=== PATIENT | female | born 1940 | race Caucasian/White ===

== ENCOUNTER 2018-06-20 14:33 | Inpatient (IN) | payer MEDICARE ==
[~2018-06-20] VITALS: Ht 157.5 cm; Wt 51.3 kg
[2018-06-20] MEDS ORDERED: ASPIRIN 81 MG CHEW TAB PO ONE ×2 (15:30→17:00)
[2018-06-20 15:45] LABS: BASOPHILS % 0.1 % (0.0-1.0); EOSINOPHILS % 0.1 % (0.0-6.0); HEMATOCRIT 26.4 % (34.2-44.1); HEMOGLOBIN 8.2 g/dL (12.0-16.0); LYMPHOCYTES # (AUTO) 1.6 (1.0-3.2); LYMPHOCYTES % 15.8 % (18.0-39.1); MEAN CORPUSCULAR HEMOGLOBIN 31.1 pg (28-32); MEAN CORPUSCULAR HGB CONC 31.1 g/dL (31-35); MONOCYTES # (AUTO) 0.7 (0.2-0.8); MONOCYTES % 6.3 % (4.4-11.3); NEUTROPHILS % 77.1 % (38.7-80.0); PLATELET COUNT 307 x10e3/uL (140-360); RED BLOOD COUNT 2.64 x10e6/uL (3.6-5.1); RED CELL DISTRIBUTION WIDTH 17.2 % (11.7-14.4)
[2018-06-20 15:50] LABS: INR 1.34; PARTIAL THROMBOPLASTIN TIME 31.4 seconds (23.8-35.5); PROTHROMBIN TIME 15.6 seconds (11.9-14.5)
--- NOTE | 2018-06-20 15:56 | Diagnostic Imaging Report ---
EXAMINATION: CHEST SINGLE (PORTABLE) INDICATION: \S\ERMD ORDER \S\[id number] \S\[id number] \S\Y COMPARISON: None FINDINGS: AP view TUBES and LINES: None. LUNGS: Lungs are well inflated. Bilateral interstitial edema. Bibasilar atelectasis. Few bilateral calcified granulomas. PLEURA: Possible small left pleural effusion. No pneumothorax. HEART AND MEDIASTINUM: Moderate enlargement of the cardiac silhouette. Atherosclerotic calcifications of the aortic arch. BONES AND SOFT TISSUES: No acute osseous lesion. Soft tissues are unremarkable. UPPER ABDOMEN: No free air under the diaphragm. IMPRESSION: Bilateral interstitial edema. Signed by: Dr. Razia Stuart M.D. on 06/20/2018 3:53 PM
[2018-06-20 16:00] LABS: ALBUMIN 1.6 g/dL (3.5-5.0); ALBUMIN/GLOBULIN RATIO 0.3 (0.8-2.0); ANION GAP 15.2 mmol/L (8-16); CALCIUM 8.6 mg/dL (8.4-10.2); CREATININE, SERUM 1.37 mg/dL (0.57-1.11); MAGNESIUM 1.9 MG/DL (1.3-2.1); POTASSIUM 3.2 mmol/L (3.5-5.1)
[2018-06-20 16:06] LABS: CREATINE KINASE MB 1.7 ng/mL (0-5.0)
[2018-06-20] MEDS ORDERED: SODIUM CHLORIDE 0.9% 1000ML 1,000 ML IV SCH (16:54)
[2018-06-20] MEDS ORDERED: FUROSEMIDE INJ 10 MG/ML 2 ML VIAL IV ONE (17:00)
[2018-06-20] MEDS ORDERED: ONDANSETRON HCL INJ 2 MG/ML VIAL IV PRN (17:00)
[2018-06-20] MEDS ORDERED: ALBUTEROL/IPRATROPIUM 3 ML NEB NEB PRN (17:00)
[2018-06-20] MEDS ORDERED: ACETAMINOPHEN 325 MG TAB PO PRN (17:30)
[2018-06-20] MEDS ORDERED: METOPROLOL TARTRATE INJ 1 MG/ML VIAL IV PRN (17:30)
[2018-06-20] MEDS ORDERED: POTASSIUM CHLORIDE 20 MEQ TAB CR PO ONE (18:00)
[2018-06-20] MEDS: FUROSEMIDE INJ 10 MG/ML 2 ML VIAL IV SCH (18:14)
[2018-06-20] MEDS: AZITHROMYCIN 500MG/NS 250 ML 250 ML IV SCH (18:14)
[2018-06-20 18:22] LABS: CLARITY,URINE CLOUDY (CLEAR); COLOR,URINE YELLOW (YELLOW); LEUKOCYTE ESTERASE ,URINE 2+ (NEGATIVE)
[2018-06-20 18:23] LABS: BILIRUBIN,URINE NEGATIVE (NEGATIVE); KETONES,URINE NEGATIVE (NEGATIVE); NITRITE,URINE POSITIVE (NEGATIVE); PROTEIN,URINE DIPSTICK 2+ (NEGATIVE); URINE UROBILINOGEN 0.2 mg/dL (0.2 - 1)
[2018-06-20 18:24] LABS: AMORPHOUS SEDIMENT,URINE MODERATE (FEW); BACTERIA,URINE MANY /HPF; EPITHELIAL CELLS,URINE FEW /LPF; WBC,URINE (MAN) 21-50 /HPF (0-5)
[2018-06-20] MEDS: LEVALBUTEROL HCL SOLN NEBU 0.63 MG/3 ML NEB INH SCH ×2 (19:00→23:00)
[2018-06-20] MEDS: IPRATROPIUM BROMIDE 0.02% 2.5 ML NEB NEB SCH ×2 (19:00→22:20)
[2018-06-20 19:18] VITALS: BP 138/74
[2018-06-20 20:00] VITALS: BP 138/74
[2018-06-20] MEDS: GUAIFENESIN 600 MG TAB PO SCH (22:41)
[2018-06-20] MEDS: CEFTRIAXONE SOD 1 GM VIAL IV SCH (22:41)
[2018-06-21] VITALS: BP 121/57
[2018-06-21 01:09] LABS: CREATINE KINASE MB 1.2 ng/mL (0-5.0)
[2018-06-21] MEDS ORDERED: IBUPROFEN 400 MG TAB PO ONE (01:15)
[2018-06-21] MEDS ORDERED: IBUPROFEN 200 MG TAB PO PRN (01:15)
[2018-06-21] MEDS: LEVALBUTEROL HCL SOLN NEBU 0.63 MG/3 ML NEB INH SCH ×6 (01:45→22:40)
[2018-06-21] MEDS: IPRATROPIUM BROMIDE 0.02% 2.5 ML NEB NEB SCH ×6 (01:45→22:40)
[2018-06-21] MEDS ORDERED: DEXAMETHASONE4 MG PO (02:51)
[2018-06-21] MEDS ORDERED: DULCOLAX SUPP10 MG RC (02:51)
[2018-06-21] MEDS ORDERED: NEXIUM40 MG PO (02:51)
[2018-06-21] MEDS ORDERED: FLEET ENEMA133 ML PR (02:51)
[2018-06-21] MEDS ORDERED: VITAMIN B-12500 MCG PO (02:51)
[2018-06-21] MEDS ORDERED: ULTRAM50 MG PO ×2 (02:51)
[2018-06-21] MEDS ORDERED: ATIVAN1 MG PO (02:51)
[2018-06-21] MEDS ORDERED: LACTULOSE20 GM/30 M PO (02:51)
[2018-06-21] MEDS ORDERED: SENNA LAXATIVE1 EACH PO (02:51)
[2018-06-21] MEDS ORDERED: VITAMIN B-121000 MCG PO (02:51)
[2018-06-21] MEDS ORDERED: RISPERDAL1 MG PO (02:51)
[2018-06-21] MEDS ORDERED: ERGOCALCIF8000 UNIT/ PO (02:51)
[2018-06-21] MEDS ORDERED: IPRAT-ALBUT 0.5-3 ML IH (02:51)
[2018-06-21] MEDS ORDERED: FERROUS SULFAT325 MG PO (02:51)
[2018-06-21] MEDS ORDERED: VITAMIN B12-FO1 EACH (02:51)
[2018-06-21] MEDS ORDERED: POLYETHYLENE GL17 GM PO (02:51)
[2018-06-21] MEDS ORDERED: CALCIUM CARBON500 MG PO (02:51)
[2018-06-21] MEDS ORDERED: CALCIUM 500+D1 EACH (02:51)
[2018-06-21 04:00] VITALS: BP 100/47
[2018-06-21 04:48] LABS: BASOPHILS % 0.1 % (0.0-1.0); HEMATOCRIT 24.9 % (34.2-44.1); HEMOGLOBIN 7.9 g/dL (12.0-16.0); LYMPHOCYTES # (AUTO) 1.6 (1.0-3.2); LYMPHOCYTES % 15.4 % (18.0-39.1); MEAN CORPUSCULAR HEMOGLOBIN 31.2 pg (28-32); MEAN CORPUSCULAR HGB CONC 31.7 g/dL (31-35); MEAN CORPUSCULAR VOLUME 98.4 fL (81-99); MONOCYTES # (AUTO) 0.7 (0.2-0.8); MONOCYTES % 6.4 % (4.4-11.3); NEUTROPHILS # (AUTO) 7.8 (2.1-6.9); NEUTROPHILS % 77.6 % (38.7-80.0); PLATELET COUNT 290 x10e3/uL (140-360); RED BLOOD COUNT 2.53 x10e6/uL (3.6-5.1); RED CELL DISTRIBUTION WIDTH 17.1 % (11.7-14.4)
[2018-06-21 05:06] LABS: ANION GAP 16.9 mmol/L (8-16); CALCIUM 8.4 mg/dL (8.4-10.2); CREATININE, SERUM 1.46 mg/dL (0.57-1.11); MAGNESIUM 1.9 MG/DL (1.3-2.1)
[2018-06-21 05:07] LABS: POTASSIUM 3.9 mmol/L (3.5-5.1)
[2018-06-21 05:51] LABS: CREATINE KINASE MB 1.3 ng/mL (0-5.0)
[2018-06-21] MEDS: GUAIFENESIN 600 MG TAB PO SCH ×4 (06:27→17:45)
--- NOTE | 2018-06-21 06:53 | Diagnostic Imaging Report ---
EXAM: CHEST SINGLE (PORTABLE), AP 1 view INDICATION: Shortness of breath COMPARISON: AP view of the chest June 20, 2018 FINDINGS: LINES/TUBES: None LUNGS: Left lower lobe atelectasis versus consolidation PLEURA: Possible left pleural effusion. HEART AND MEDIASTINUM: Stable appearance BONES AND SOFT TISSUES: No acute findings. IMPRESSION: Left lower lobe atelectasis versus consolidation with suspected adjacent pleural effusion. Signed by: Dr. Lucero Winters M.D. on 06/21/2018 6:50 AM
[2018-06-21 07:20] VITALS: BP 110/53
[2018-06-21 07:47] VITALS: BP 110/53
[2018-06-21] MEDS ORDERED: FUROSEMIDE INJ 10 MG/ML 2 ML VIAL IV PRN (08:00)
[2018-06-21] MEDS ORDERED: SODIUM CHLORIDE 0.9% 250ML 250 ML IV ONE (08:00)
[2018-06-21] MEDS ORDERED: LORAZEPAM 1 MG TAB PO PRN (08:15)
[2018-06-21] MEDS: CEFTRIAXONE SOD 1 GM VIAL IV SCH ×2 (09:00→21:11)
[2018-06-21] MEDS: FUROSEMIDE INJ 10 MG/ML 2 ML VIAL IV SCH ×2 (09:00→17:58)
[2018-06-21] MEDS: POTASSIUM CHLORIDE 20 MEQ TAB CR PO SCH (09:00)
[2018-06-21] MEDS: SENNOSIDES 8.6 MG TAB PO SCH ×2 (10:00→17:45)
[2018-06-21] MEDS: TRAMADOL HCL 50 MG TAB PO SCH ×2 (10:00→21:11)
[2018-06-21] MEDS: ENOXAPARIN 30 MG/0.3 ML SYR SC SCH (10:00)
--- NOTE | 2018-06-21 10:36 | Consultation ---
DATE OF CONSULTATION: June 21, 2018 REASON FOR CONSULTATION: Chest pain. HISTORY OF PRESENT ILLNESS: Ms. Botello is a 78-year-old lady with a past medical history as listed below presented with complaints of intermittent chest pain and abdominal pain since yesterday. Patient states that she has been congested and had been having a cough for the last 5 days or so, and also has been getting short of breath since yesterday. Patient states that she had some kidney cancer and needs her catheter changed. Her chest pain is intermittent, sharp and all across her chest, some times on the right side and some times on the left side, and some times in the epigastric region. She has also been coughing up some yellow phlegm. Denies any vomiting or diarrhea. 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 She is mostly bedbound and stays at [facility]. The patient reportedly was confused, but now is able to talk and give a reasonable history. REVIEW OF SYSTEMS CONSTITUTIONAL: Has some fatigue and weakness. HEENT: No headache, blurry vision, seizures, syncope. CARDIOVASCULAR: Had chest pain. Has dyspnea and orthopnea and PND. RESPIRATORY: Has cough with expectoration. GI: No abdominal pain, vomiting or diarrhea. : No dysuria, frequency or incontinence. ALLERGIES: ACETAMINOPHEN AND PENICILLIN. MEDICATIONS: See list. PAST MEDICAL HISTORY: History of CHF, history of GERD, history of anxiety, history of paraparesis, history of dysphasia, history of L-spine fracture, history of T-spine fracture. SOCIAL HISTORY: Does not smoke or drink. She is a resident of a custodial. FAMILY HISTORY: Noncontributory. PHYSICAL EXAMINATION GENERAL: Moderately built and nourished lady who is awake, alert and not in any obvious distress. VITALS: Heart rate 71, blood pressure 110/53, respiratory rate 18. HEENT: Atraumatic. NECK: No JVD, bruit, thyromegaly, or lymphadenopathy. CARDIOVASCULAR: First and 2nd heart sounds heard. No murmurs, rubs or gallops appreciated. CHEST: Decreased air entry at the bases. No adventitious sounds appreciated. ABDOMEN: Soft and nontender. EXTREMITIES: No edema. LABS: Sodium is 140, potassium is 3.9, chloride is 102, bicarb is 24, BUN is 30, creatinine 1.4, glucose 88. Hemoglobin is 7.9, hematocrit 24.92 and platelets are 291,000. White count is 10. INR is 1.3. EKG shows sinus rhythm at 93 beats per minute. Normal axis. Normal intervals. Nonspecific ST-T changes. Troponin 0.25, 0.43 and 0.58. IMPRESSION 1. Chest pain. 2. Pneumonia. 3. Pulmonary edema/congestive heart failure. 4. Borderline troponins. 5. Anemia. 6. Renal insufficiency. 7. History of paraparesis. 8. History of thoracic and lumbar spine fracture. PLAN 1. IV diuresis. 2. Continue with antibiotics. 3. Get echocardiogram to assess LV function and valvular function. 4. Blood transfusion as indicated. 5. Low-dose beta blockers and statins. 6. The patient is on Lovenox. Continue the same. 7. Further cardiac workup depending on clinical course. As always, I appreciate and thank you very much for the referral. Job#: [id number] YVON
[2018-06-21] MEDS ORDERED: SODIUM CHLORIDE 0.9% 250ML 0 ML ONE (12:52)
[2018-06-21] MEDS ORDERED: SODIUM CHLORIDE 0.9% 250ML 250 ML ONE ×2 (14:02→23:00)
[2018-06-21] MEDS: AZITHROMYCIN 500MG/NS 250 ML 250 ML IV SCH (17:50)
[2018-06-21 17:51] VITALS: BP 114/57
[2018-06-21] MEDS ORDERED: FUROSEMIDE INJ 10 MG/ML 4 ML VIAL IV ONE (18:15)
[2018-06-21 20:00] VITALS: BP 119/56
[2018-06-21] MEDS: RISPERIDONE 0.5 MG TAB PO SCH (21:11)
--- NOTE | 2018-06-21 21:15 | Diagnostic Imaging Report ---
EXAMINATION: Head CT HISTORY: Altered mental status, evaluate for brain metastases COMPARISON: None. TECHNIQUE: Multidetector axial images were obtained without contrast from the foramen magnum to the vertex . The images were reconstructed using brain and bone algorithms. Thin section brain images were reformatted into coronal and sagittal planes. Intravenous contrast: None. Image quality: Motion/streaking artifact limits the evaluation of the skull base and posterior cranial fossa. Dose modulation, iterative reconstruction, and/or weight based adjustment of the mA/kV was utilized to reduce the radiation dose to as low as reasonably achievable. FINDINGS: Parenchyma: 1. Few scattered and mildly confluent periventricular white matter hypodensities, most likely nonspecific chronic microvascular ischemic changes. 2. No mass or hemorrhage. No CT evidence of acute territorial vascular insult. No vasogenic edema, mass defect, midline shift or herniation. Extra-axial spaces:No abnormal density. No extra-axial fluid collections Brain volume: Normal for age. Ventricles: No hydrocephalus or displacement. Arteries: No density suggestive of thrombus. Dural sinuses: No abnormal density. Extra-axial spaces: No abnormal density. Foramen magnum: No mass, Chiari malformation, or basilar invagination. Sella: No obvious mass. Paranasal/mastoid sinuses: Imaged portions unremarkable. Skull/Scalp: No lytic or blastic lesions. No fractures. IMPRESSION: 1. Mild chronic microvascular ischemic changes. 2. No evidence of metastatic disease in this unenhanced study. Signed by: Dr. Mariella Delcid M.D. on 06/21/2018 9:11 PM
[2018-06-22] VITALS (9 sets, daily range): BP systolic 100–120; BP diastolic 51–56
[2018-06-22] MEDS: GUAIFENESIN 600 MG TAB PO SCH ×5 (01:07→23:55)
[2018-06-22] MEDS: LEVALBUTEROL HCL SOLN NEBU 0.63 MG/3 ML NEB INH SCH ×6 (03:20→23:25)
[2018-06-22] MEDS: IPRATROPIUM BROMIDE 0.02% 2.5 ML NEB NEB SCH ×6 (03:20→23:25)
[2018-06-22 03:54] LABS: BASOPHILS # (AUTO) 0.1 (0.0-0.1); BASOPHILS % 0.5 % (0.0-1.0); EOSINOPHILS # (AUTO) 0.1 (0.0-0.4); EOSINOPHILS % 0.6 % (0.0-6.0); HEMATOCRIT 30.1 % (34.2-44.1); HEMOGLOBIN 10.1 g/dL (12.0-16.0); LYMPHOCYTES # (AUTO) 1.6 (1.0-3.2); LYMPHOCYTES % 15.1 % (18.0-39.1); MEAN CORPUSCULAR HEMOGLOBIN 31.4 pg (28-32); MEAN CORPUSCULAR HGB CONC 33.6 g/dL (31-35); MONOCYTES # (AUTO) 0.6 (0.2-0.8); MONOCYTES % 5.3 % (4.4-11.3); NEUTROPHILS # (AUTO) 8.5 (2.1-6.9); NEUTROPHILS % 77.6 % (38.7-80.0); PLATELET COUNT 291 x10e3/uL (140-360); RED BLOOD COUNT 3.22 x10e6/uL (3.6-5.1); RED CELL DISTRIBUTION WIDTH 17.3 % (11.7-14.4)
[2018-06-22 04:00] LABS: MEAN CORPUSCULAR VOLUME 93.5 fL (81-99)
[2018-06-22 04:10] LABS: ANION GAP 16.5 mmol/L (8-16); CALCIUM 8.5 mg/dL (8.4-10.2); CREATININE, SERUM 1.61 mg/dL (0.57-1.11); MAGNESIUM 1.7 MG/DL (1.3-2.1); POTASSIUM 3.5 mmol/L (3.5-5.1)
[2018-06-22 04:31] LABS: FREE T4 (FREE THYROXINE) 1.17 ng/dL (0.9-1.8); THYROID STIMULATING HORMONE 1.893 uIU/mL (0.350-4.940)
[2018-06-22] MEDS: PANTOPRAZOLE SOD 40 MG TABEC PO SCH (08:34)
[2018-06-22 10:26] LABS: COLOR,URINE YELLOW (YELLOW)
[2018-06-22 10:27] LABS: BILIRUBIN,URINE NEGATIVE (NEGATIVE); CLARITY,URINE SL CLOUDY (CLEAR); KETONES,URINE NEGATIVE (NEGATIVE); LEUKOCYTE ESTERASE ,URINE 1+ (NEGATIVE); NITRITE,URINE NEGATIVE (NEGATIVE); PROTEIN,URINE DIPSTICK 2+ (NEGATIVE); URINE UROBILINOGEN 0.2 mg/dL (0.2 - 1)
[2018-06-22 10:46] LABS: BACTERIA,URINE MODERATE /HPF; EPITHELIAL CELLS,URINE FEW /LPF; WBC,URINE (MAN) >50 /HPF (0-5)
[2018-06-22] MEDS: CEFTRIAXONE SOD 1 GM VIAL IV SCH ×2 (10:46→21:50)
[2018-06-22] MEDS: FUROSEMIDE INJ 10 MG/ML 2 ML VIAL IV SCH ×2 (10:46→17:26)
[2018-06-22] MEDS: POTASSIUM CHLORIDE 20 MEQ TAB CR PO SCH (10:47)
[2018-06-22] MEDS: SENNOSIDES 8.6 MG TAB PO SCH ×2 (10:47→16:59)
[2018-06-22] MEDS: TRAMADOL HCL 50 MG TAB PO SCH ×2 (10:47→22:23)
[2018-06-22] MEDS: ENOXAPARIN 30 MG/0.3 ML SYR SC SCH (10:47)
[2018-06-22] MEDS ORDERED: DIATRIZOATE MEGL/DIATRIZOA SOD 30 ML BTL PO ONE (14:15)
[2018-06-22] MEDS ORDERED: SODIUM CHLORIDE 0.9% 1000ML 1,000 ML IV ONE ×2 (14:30→22:00)
[2018-06-22] MEDS: METOPROLOL TARTRATE 25 MG TAB PO SCH (16:58)
[2018-06-22] MEDS: AZITHROMYCIN 500MG/NS 250 ML 250 ML IV SCH (17:32)
[2018-06-22 20:41] LABS: ALBUMIN 1.5 g/dL (3.5-5.0); ALBUMIN/GLOBULIN RATIO 0.2 (0.8-2.0); ANION GAP 16.9 mmol/L (8-16); CALCIUM 8.5 mg/dL (8.4-10.2); CREATININE, SERUM 1.76 mg/dL (0.57-1.11); POTASSIUM 3.9 mmol/L (3.5-5.1)
[2018-06-22] MEDS: RISPERIDONE 0.5 MG TAB PO SCH (21:50)
[2018-06-22] MEDS: ATORVASTATIN 20 MG TAB PO SCH (21:50)
[2018-06-23] VITALS (8 sets, daily range): BP systolic 102–118; BP diastolic 51–77
[2018-06-23] MEDS: LEVALBUTEROL HCL SOLN NEBU 0.63 MG/3 ML NEB INH SCH ×6 (03:35→22:24)
[2018-06-23] MEDS: IPRATROPIUM BROMIDE 0.02% 2.5 ML NEB NEB SCH ×6 (03:35→22:24)
[2018-06-23] MEDS: TRAMADOL HCL 50 MG TAB PO PRN (04:17)
[2018-06-23 05:01] LABS: BASOPHILS % 0.4 % (0.0-1.0); EOSINOPHILS # (AUTO) 0.1 (0.0-0.4); EOSINOPHILS % 1.4 % (0.0-6.0); HEMATOCRIT 30.6 % (34.2-44.1); HEMOGLOBIN 10.1 g/dL (12.0-16.0); LYMPHOCYTES # (AUTO) 1.8 (1.0-3.2); LYMPHOCYTES % 18.9 % (18.0-39.1); MEAN CORPUSCULAR HEMOGLOBIN 31.3 pg (28-32); MEAN CORPUSCULAR VOLUME 94.7 fL (81-99); MONOCYTES # (AUTO) 0.4 (0.2-0.8); MONOCYTES % 4.3 % (4.4-11.3); NEUTROPHILS # (AUTO) 7.2 (2.1-6.9); PLATELET COUNT 301 x10e3/uL (140-360); RED BLOOD COUNT 3.23 x10e6/uL (3.6-5.1); RED CELL DISTRIBUTION WIDTH 17.2 % (11.7-14.4)
[2018-06-23 05:18] LABS: ANION GAP 15.4 mmol/L (8-16); CALCIUM 8.4 mg/dL (8.4-10.2); CREATININE, SERUM 1.66 mg/dL (0.57-1.11); POTASSIUM 3.4 mmol/L (3.5-5.1)
[2018-06-23] MEDS: GUAIFENESIN 600 MG TAB PO SCH ×3 (05:34→17:31)
[2018-06-23 05:40] LABS: IRON 23 ug/dL (50-170); TRANSFERRIN < 70 mg/dL (180-382)
[2018-06-23 05:50] LABS: MAGNESIUM 1.9 MG/DL (1.3-2.1)
[2018-06-23 06:14] LABS: FOLATE 19.1 ng/mL (7.0-15.4)
--- NOTE | 2018-06-23 06:29 | Diagnostic Imaging Report ---
CHEST SINGLE (PORTABLE), 06/23/2018 4:00 AM Technique: CHEST SINGLE (PORTABLE) Comparison: 06/21/2018 Clinical history: Pneumonia/edema Findings: See Impression. Incidental calcified lung granulomas and remote right rib fracture. Impression: 1. Stable cardiomediastinal silhouette. 2. Unchanged left lower lobe consolidation with suspected adjacent pleural effusion. 3. Increased right basilar opacity, which may reflect atelectasis or aspiration/infection. Signed by: Dr Tanisha Gonzales MD on 06/23/2018 6:26 AM
[2018-06-23 07:08] LABS: FERRITIN 285.72 ng/mL (4.63-204.00)
[2018-06-23] MEDS ORDERED: POTASSIUM CHLORIDE 20 MEQ TAB CR PO NR (08:00)
[2018-06-23] MEDS: FUROSEMIDE INJ 10 MG/ML 2 ML VIAL IV SCH ×2 (08:57→16:42)
[2018-06-23] MEDS: ASPIRIN 81 MG ENTERIC COATED PO SCH (08:57)
[2018-06-23] MEDS: CEFTRIAXONE SOD 1 GM VIAL IV SCH ×2 (08:57→21:00)
[2018-06-23] MEDS: PANTOPRAZOLE SOD 40 MG TABEC PO SCH (08:57)
--- NOTE | 2018-06-23 08:57 | Diagnostic Imaging Report ---
PROCEDURE: CT ABDOMEN AND PELVIS WITHOUT CONTRAST TECHNIQUE: The abdomen and pelvis were scanned utilizing a multidetector helical scanner from the diaphragm to the lesser trochanter with oral contrast. No IV contrast was administered per request. Coronal and sagittal multiplanar reformations were obtained. COMPARISON: None. INDICATIONS: RENAL CANCER FINDINGS: ABSENCE OF INTRAVENOUS CONTRAST DECREASES SENSITIVITY FOR DETECTION OF FOCAL LESIONS AND VASCULAR PATHOLOGY. LOWER THORAX: Left lower lobe consolidation with associated volume loss. There is a 5 mm right middle lobe solid pulmonary nodule. Calcified granuloma in the right lower lobe. Coronary atherosclerosis. HEPATOBILIARY: There is a subcentimeter right hepatic lobe lesion on series 2, image 20. No biliary ductal dilatation. Status post cholecystectomy. SPLEEN: No splenomegaly. PANCREAS: No focal masses or ductal dilatation. ADRENALS: There is a right adrenal mass, measuring up to 3.9 cm (16 HU; series 2 image 16). There is a left adrenal mass measuring up to 5.6 cm which contains solid components and fat. KIDNEYS/URETERS: No hydronephrosis or stones. There is a 6.3 x 5.9 x 8.7 cm exophytic mass (14 HU; series 2, image 24) arising from the right mid pole kidney anteriorly. The mass has mass effect and indents the liver anteriorly without definite invasion. PELVIC ORGANS/BLADDER: Hinton catheter is present in the bladder. PERITONEUM / RETROPERITONEUM: No free air or fluid. LYMPH NODES: No lymphadenopathy. VESSELS: Atherosclerotic calcifications of the abdominal aorta and branch vessels. GI TRACT: No wall thickening. Sigmoid diverticulosis without CT evidence of diverticulitis. The rectum is distended with stool measuring up to 7.5 cm. BONES AND SOFT TISSUES: There has been prior vertebral augmentation at T9, T12, L1, and L2. There are compression deformities with loss of greater than 75 percent of vertebral body height at T9 and L1 and loss of approximately 50 percent of vertebral body height at T12 and L2. Additional age indeterminate compression deformities are present at L3 and L4 with loss of less than 50 percent of vertebral body height. No evidence of retropulsion. Diffuse osteopenia. IMPRESSION: Right mid pole renal mass measuring up to 8.7 cm with right adrenal mass. 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 Additional heterogeneous solid left adrenal mass which has components of fat, which may represent adrenal metastasis, although a primary fat containing adrenal neoplasm is also possible. Per clinical history the patient has known right sided renal cancer, correlation with outside imaging would be helpful. Indeterminate subcentimeter right hepatic lobe lesion. Indeterminate 5 mm right middle lobe pulmonary nodule. Correlation with outside imaging or dedicated imaging is suggested. Left lower lobe pulmonary consolidation with volume loss, may reflect atelectasis and/or pneumonia. Multilevel thoracic and lumbar vertebral augmentation with compression deformities as above. Dictated by: GATO OLIVAS M.D. on 06/23/2018 at 9:03 Electronically approved by: GATO OLIVAS M.D. on 06/23/2018 at 9:03
[2018-06-23] MEDS: TRAMADOL HCL 50 MG TAB PO SCH ×2 (08:58→10:47)
[2018-06-23] MEDS: SENNOSIDES 8.6 MG TAB PO SCH ×2 (08:58→16:42)
[2018-06-23] MEDS: METOPROLOL TARTRATE 25 MG TAB PO SCH ×2 (08:58→16:42)
[2018-06-23] MEDS: ENOXAPARIN 30 MG/0.3 ML SYR SC SCH (08:58)
[2018-06-23] MEDS: POTASSIUM CHLORIDE 20 MEQ TAB CR PO SCH (10:47)
[2018-06-23 12:51] LABS: ABG PH 7.44 (7.31-7.41)
[2018-06-23 12:52] LABS: ABG PCO2 41 mmHg (41-51); ABG PO2 52 mmHg (80-105)
[2018-06-23 12:53] LABS: ABG HCO3 28 mmol/L (23-28)
[2018-06-23] MEDS: AZITHROMYCIN 500MG/NS 250 ML 250 ML IV SCH (16:42)
[2018-06-23] MEDS: ATORVASTATIN 20 MG TAB PO SCH (21:00)
[2018-06-23] MEDS: RISPERIDONE 0.5 MG TAB PO SCH (21:00)
[2018-06-24] VITALS (8 sets, daily range): BP systolic 104–123; BP diastolic 52–63
[2018-06-24] MEDS: GUAIFENESIN 600 MG TAB PO SCH ×5 (00:05→23:41)
[2018-06-24 05:32] LABS: BASOPHILS # (AUTO) 0.1 (0.0-0.1); BASOPHILS % 0.8 % (0.0-1.0); EOSINOPHILS # (AUTO) 0.2 (0.0-0.4); EOSINOPHILS % 2.1 % (0.0-6.0); HEMATOCRIT 33.4 % (34.2-44.1); HEMOGLOBIN 10.7 g/dL (12.0-16.0); LYMPHOCYTES % 21.2 % (18.0-39.1); MEAN CORPUSCULAR HEMOGLOBIN 31.1 pg (28-32); MEAN CORPUSCULAR VOLUME 97.1 fL (81-99); MONOCYTES # (AUTO) 0.5 (0.2-0.8); MONOCYTES % 5.6 % (4.4-11.3); NEUTROPHILS # (AUTO) 6.3 (2.1-6.9); NEUTROPHILS % 68.8 % (38.7-80.0); PLATELET COUNT 319 x10e3/uL (140-360); RED BLOOD COUNT 3.44 x10e6/uL (3.6-5.1); RED CELL DISTRIBUTION WIDTH 16.7 % (11.7-14.4)
[2018-06-24 06:00] LABS: ANION GAP 15.5 mmol/L (8-16); CALCIUM 9.1 mg/dL (8.4-10.2); CREATININE, SERUM 1.59 mg/dL (0.57-1.11); MAGNESIUM 1.8 MG/DL (1.3-2.1); POTASSIUM 3.5 mmol/L (3.5-5.1)
[2018-06-24] MEDS: LEVALBUTEROL HCL SOLN NEBU 0.63 MG/3 ML NEB INH SCH ×4 (06:50→23:20)
[2018-06-24] MEDS: IPRATROPIUM BROMIDE 0.02% 2.5 ML NEB NEB SCH ×3 (06:50→23:20)
[2018-06-24] MEDS: FUROSEMIDE INJ 10 MG/ML 2 ML VIAL IV SCH ×2 (09:03→16:49)
[2018-06-24] MEDS: ASPIRIN 81 MG ENTERIC COATED PO SCH (09:03)
[2018-06-24] MEDS: CEFTRIAXONE SOD 1 GM VIAL IV SCH ×2 (09:03→21:14)
[2018-06-24] MEDS: PANTOPRAZOLE SOD 40 MG TABEC PO SCH (09:03)
[2018-06-24] MEDS: TRAMADOL HCL 50 MG TAB PO SCH ×2 (09:04→21:14)
[2018-06-24] MEDS: ENOXAPARIN 30 MG/0.3 ML SYR SC SCH (09:04)
[2018-06-24] MEDS: POTASSIUM CHLORIDE 20 MEQ TAB CR PO SCH (09:04)
[2018-06-24] MEDS: SENNOSIDES 8.6 MG TAB PO SCH ×2 (09:04→16:50)
[2018-06-24] MEDS: METOPROLOL TARTRATE 25 MG TAB PO SCH ×2 (09:04→16:50)
[2018-06-24] MEDS: AZITHROMYCIN 500MG/NS 250 ML 250 ML IV SCH (16:50)
[2018-06-24] MEDS: TRAMADOL HCL 50 MG TAB PO PRN (16:53)
[2018-06-24] MEDS: ATORVASTATIN 20 MG TAB PO SCH (21:14)
[2018-06-24] MEDS: RISPERIDONE 0.5 MG TAB PO SCH (21:14)
[2018-06-25] VITALS: BP 101/51
[2018-06-25] MEDS: LEVALBUTEROL HCL SOLN NEBU 0.63 MG/3 ML NEB INH SCH ×2 (02:05→07:20)
[2018-06-25] MEDS: IPRATROPIUM BROMIDE 0.02% 2.5 ML NEB NEB SCH ×2 (02:05→07:20)
[2018-06-25 04:00] VITALS: BP 132/61
[2018-06-25 05:20] LABS: BASOPHILS # (AUTO) 0.1 (0.0-0.1); BASOPHILS % 0.9 % (0.0-1.0); EOSINOPHILS # (AUTO) 0.2 (0.0-0.4); EOSINOPHILS % 2.1 % (0.0-6.0); HEMATOCRIT 33.1 % (34.2-44.1); HEMOGLOBIN 10.6 g/dL (12.0-16.0); LYMPHOCYTES # (AUTO) 2.4 (1.0-3.2); LYMPHOCYTES % 26.1 % (18.0-39.1); MEAN CORPUSCULAR HEMOGLOBIN 31.2 pg (28-32); MEAN CORPUSCULAR VOLUME 97.4 fL (81-99); MONOCYTES # (AUTO) 0.6 (0.2-0.8); MONOCYTES % 6.9 % (4.4-11.3); NEUTROPHILS # (AUTO) 5.6 (2.1-6.9); NEUTROPHILS % 61.9 % (38.7-80.0); PLATELET COUNT 363 x10e3/uL (140-360); RED CELL DISTRIBUTION WIDTH 16.1 % (11.7-14.4)
[2018-06-25] MEDS: GUAIFENESIN 600 MG TAB PO SCH (05:34)
[2018-06-25 05:41] LABS: ANION GAP 13.5 mmol/L (8-16); CALCIUM 9.3 mg/dL (8.4-10.2); CREATININE, SERUM 1.7 mg/dL (0.57-1.11); MAGNESIUM 1.9 MG/DL (1.3-2.1); POTASSIUM 3.5 mmol/L (3.5-5.1)
--- NOTE | 2018-06-25 06:33 | Diagnostic Imaging Report ---
CHEST SINGLE (PORTABLE), 06/25/2018 4:00 AM Technique: CHEST SINGLE (PORTABLE) Comparison: 06/23/2018 Clinical history: Follow-up pneumonia/effusion Findings: See Impression. Incidental calcified lung granulomas and remote right rib fracture. Impression: 1. Stable cardiomediastinal silhouette. 2. Improved left lower lobe atelectasis/consolidation with suspected adjacent pleural effusion. 3. Stable to decreased right basilar opacity, which may reflect atelectasis or aspiration/infection. Signed by: Dr Tanisha Gonzales MD on 06/25/2018 6:30 AM
[2018-06-25] MEDS ORDERED: ceftin PO (07:34)
[2018-06-25] MEDS ORDERED: MUCINEX600 MG PO (07:34)
[2018-06-25] MEDS ORDERED: LIPITOR20 MG PO (07:34)
[2018-06-25] MEDS ORDERED: METOPROLOL TART25 MG PO (07:40)
[2018-06-25 08:08] VITALS: BP 114/55
[2018-06-25 08:30] LABS: ANISOCYTOSIS SLIGHT; BAND NEUTROPHILS % (MANUAL) 2 %; EOSINOPHILS % (MANUAL) 1 % (0-7); HYPOCHROMASIA SLIGHT; LYMPHOCYTES % (MANUAL) 21 % (19-48); MONOCYTES % (MANUAL) 2 % (3.4-9.0); NEUTROPHILS % (MANUAL) 72 % (40-74); PLATELET ESTIMATE ADEQUATE; PLATELET MORPHOLOGY COMMENT NORMAL; PROMYELOCYTES % (MANUAL) 1 % (0-0); RBC MORPHOLOGY COMMENT NORMAL
[2018-06-25] MEDS: FUROSEMIDE INJ 10 MG/ML 2 ML VIAL IV SCH (08:49)
[2018-06-25] MEDS: POTASSIUM CHLORIDE 20 MEQ TAB CR PO SCH (08:49)
[2018-06-25] MEDS: PANTOPRAZOLE SOD 40 MG TABEC PO SCH (08:49)
[2018-06-25] MEDS: CEFTRIAXONE SOD 1 GM VIAL IV SCH (08:49)
[2018-06-25] MEDS: ASPIRIN 81 MG ENTERIC COATED PO SCH (08:49)
[2018-06-25] MEDS: METOPROLOL TARTRATE 25 MG TAB PO SCH (08:50)
[2018-06-25] MEDS: ENOXAPARIN 30 MG/0.3 ML SYR SC SCH (08:50)
[2018-06-25] MEDS: TRAMADOL HCL 50 MG TAB PO SCH (08:50)
[2018-06-25] MEDS: SENNOSIDES 8.6 MG TAB PO SCH (08:50)
[2018-06-25 09:03] VITALS: BP 114/55
--- NOTE | 2018-06-25 17:10 | Discharge Summary ---
ADMISSION DIAGNOSES 1. Bronchopneumonia. 2. Pulmonary edema. 3. Anxiety. 4. Acute kidney injury versus chronic kidney disease. 5. Hypokalemia. 6. Anemia. 7. Elevated troponin. 8. Gastroesophageal reflux disease. 9. Heart failure. 10. Debility. 11. Dysphagia. 12. Urinary tract infection. DISCHARGE DIAGNOSES 1. Bronchopneumonia. 2. Pulmonary edema. 3. Anxiety. 4. Acute kidney injury versus chronic kidney disease. 5. Hypokalemia. 6. Anemia. 7. Elevated troponin. 8. Gastroesophageal reflux disease. 9. Heart failure. 10. Debility. 11. Dysphagia. 12. Urinary tract infection. 13. Renal cancer. HISTORY: Patient has a history of anxiety, heart failure, GERD, T-spine fracture, L-spine fracture, dysphagia, physical debility, multiple myeloma, renal cancer. HOSPITAL COURSE: A 78-year-old female complains of cough and congestion that began a couple days ago. Cough is productive with yellow-green sputum. Complains of congestion for 4 days that led to dyspnea yesterday. She is a resident of [facility] and unable to give HPI due to confusion. HPI was pulled from the ER records. On admission patient was started on azithromycin, Rocephin, Mucinex, Lasix b.i.d. Creatinine on admission was 1.37. Patient was given IV fluids in the ER. Potassium was repleted. She was also given 2 PRBCs due to a hemoglobin of 7.9. Troponins were 0.258, 0.433, 0.586. Cardiology was consulted and an echo was ordered. Patient was started on Rocephin for the UTI. Speech therapy eval conducted which showed patient can tolerate regular foods and thin liquids. Chest x-ray on admission showed bilateral interstitial edema. CT of the brain showed mild chronic microvascular ischemic changes, no evidence of metastatic disease. CT of the abdomen showed right midpole renal mass measuring up to 8.7 cm with right adrenal mass, solid left adrenal mass which has components of fat which may represent adrenal metastases, although a primary fat-containing adrenal neoplasm was also possible, indeterminate subcentimeter right hepatic lobe lesion, indeterminate 5 mm right middle lobe pulmonary nodule, left lower lobe pulmonary consolidation with volume loss, multiple thoracic and lumbar vertebral augmentation with compression deformities. Chest x-ray prior to discharge showed improved left lower lobe atelectasis/consolidation, stable to decreased right basilar opacity. Patient received 2 RBCs on June 21. Urine came back positive for enterococcus and gram-negative bacillus. Blood cultures were negative. [facility]. Fecal occult blood was not tested as the nurses continued to miss collection, but her hemoglobin remained stable after getting the blood. [facility] the [facility] with Lipitor, Mucinex, metoprolol 12.5 daily, and Ceftin b.i.d. for 4 days. Patient understands discharge instructions and agrees to plan. Patient's family is also aware of the plan and agrees. Vital signs stable, patient afebrile. Dictated by: Gabriela Santos NP TACOS CEJA MD Job#: [id number] EV
--- OUTSIDE RECORDS SUMMARY | 2018-07-23 05:31 | XMS REPORT | Summary of Care ---
Author Author [facility] Organization [facility] Address Unknown Phone Unavailable Encounter KENA Calles(FIN) [phone] Date(s): 09/25/17 - 09/25/17 [facility] [address] [place] [address] Attending Physician: Lino Erickson MD Vital Signs No data available for this section Problem List Condition Effective Dates Status Health Status Informant Obesity(Confirmed) Active Allergies, Adverse Reactions, Alerts Substance Reaction Severity Status penicillins Active Tylenol Active Medications No data available for this section Results No data available for this section Immunizations Given and Recorded Vaccine Date Status Refusal Reason pneumococcal 23-valent vaccine 05/20/16 Recorded influenza virus vaccine, inactivated 05/20/16 Recorded Procedures Procedure Date Related Diagnosis Body Site Cataract surgery Cholecystectomy Operation on colon Procedure on adenoids Removal of remaining ovary Tonsillectomy Uterus excision Social History Social History Type Response Smoking Status Current every day smoker; Type: Cigarettes; Exposure to Tobacco Smoke None; Cigarette Smoking Last 365 Days Yes; Reg Smoking Cessation Counseling No; Total pack years: 51; Assessment and Plan No data available for this section
--- OUTSIDE RECORDS SUMMARY | 2018-07-23 05:31 | XMS REPORT | Summary of Care ---
Author Author [facility] Organization [facility] Address Unknown Phone Unavailable Encounter KENA Calles(FIN) [phone] Date(s): 09/09/17 - 09/09/17 [facility] [address] [place] [address] Attending Physician: Lino Erickson MD Vital Signs [...]
--- OUTSIDE RECORDS SUMMARY | 2018-07-23 05:31 | XMS REPORT | Clinical Summary ---
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 Disp. Refills Start End Date Status Date furosemide (LASIX) 20 mg Take 20 mg by mouth Active tablet daily. potassium chloride Take 20 mEq by mouth Active (KLOR-CON) 20 mEq packet daily. estradiol (ESTRACE) 1 MG Take 1 mg by mouth daily. Active tablet omeprazole (PriLOSEC) 40 Take 40 mg by mouth Active MG capsule daily. gemfibrozil (LOPID) 600 Take 600 mg by mouth 2 Active MG tablet (two) times a day before meals. losartan (COZAAR) 50 MG Take 50 mg by mouth as Active tablet needed. traMADol (ULTRAM) 50 mg Take 50 mg by mouth every Active tablet 8 (eight) hours as needed for moderate pain. fentaNYL (DURAGESIC) 12.5 Place 1 patch on the skin Active mcg/hr every third day. ferrous sulfate 325 (65 Take 325 mg by mouth Active FE) MG tablet daily with breakfast. calcium carbonate-vitamin Take 1 tablet by mouth Active D3 500 mg-200 unit per daily. 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, unspecified back location (Primary Dx); Viral upper respiratory tract infection after 06/19/2017 Social History Tobacco Use Types Packs/Day Years Used Date Current Every Day Smoker Cigarettes 1 Smokeless Tobacco: Never Used Alcohol Use Drinks/Week oz/Week Comments No Sex Assigned at Date Recorded Not on file Last Filed Vital Signs Vital Sign Reading Time Taken Blood Pressure 158/70 04/25/2018 7:35 PM CDT Pulse 65 04/25/2018 7:35 PM CDT Temperature 37.2 C (99 F) 04/25/2018 1:23 PM CDT Respiratory Rate 24 04/25/2018 7:35 PM CDT Oxygen Saturation 96% 04/25/2018 7:35 PM CDT Inhaled Oxygen - - Concentration Weight - - Height 154.9 cm (5' 1") 04/25/2018 1:25 PM CDT Body Mass Index - - Plan of Treatment Health Maintenance Due Date Last Done Comments SHINGRIX VACCINE (#1) 1989 ZOSTER VACCINE 1999 PNEUMOCOCCAL 2004 POLYSACCHARIDE VACCINE AGE 65 AND OVER PNEUMOCOCCAL-13 2004 INFLUENZA VACCINE 05/20/2018 Procedures Procedure Name Priority Date/Time Associated Diagnosis Comments ZZESTIMATED GFR STAT 04/25/2018 Results for this 5:42 PM CDT procedure are in the results section. LACTIC ACID LEVEL Routine 04/25/2018 Results for this 5:42 PM CDT procedure are in the results section. B NATRIURETIC PEPTIDE STAT 04/25/2018 Results for this 5:42 PM CDT procedure are in the results section. TROPONIN STAT 04/25/2018 Results for this 5:42 PM CDT procedure are in the results section. COMPREHENSIVE METABOLIC STAT 04/25/2018 Results for this PANEL 5:42 PM CDT procedure are in the results section. HC COMPLETE BLD COUNT STAT 04/25/2018 Results for this W/AUTO DIFF 5:42 PM CDT procedure are in the results section. INFLUENZA ANTIGEN Routine 04/25/2018 Results for this 5:42 PM CDT procedure are in the results section. RESPIRATORY PATHOGEN STAT 04/25/2018 Results for this PANEL 5:40 PM CDT procedure are in the results section. BLOOD CULTURE, AEROBIC & Routine 04/25/2018 Results for this ANAEROBIC 4:43 PM CDT procedure are in the results section. BLOOD CULTURE, AEROBIC & Routine 04/25/2018 Results for this ANAEROBIC 4:33 PM CDT procedure are in the results section. NM LUNG VENTILATION STAT 04/25/2018 Results for this PERFUSION 4:31 PM CDT procedure are in the results section. ECG 12-LEAD STAT 04/25/2018 Results for this 4:23 PM CDT procedure are in the results section. CT CHEST WO CONTRAST STAT 04/25/2018 Results for this 3:19 PM CDT procedure are in the results section. after 06/19/2017 Results * Estimated GFR (04/25/2018 5:42 PM) GFR Non Af Amer 31 (A) mL/min/1.73 m2 [facility] DEPARTMENT OF PATHOLOGY AND GENOMIC MEDICINE GFR Af Amer 38 (A) mL/min/1.73 m2 [facility] DEPARTMENT OF Comment: PATHOLOGY AND Chronic kidney disease: <60 GENOMIC MEDICINE mL/min/1.73m2 Kidney failure: <15 mL/min/1.73m2 The estimated GFR is calculated from the IDMS-traceable Modification of Diet in Renal Disease Equation. The accuracy of the calculation is poor when the creatinine is normal. Calculated values >90 mL/min/1.73m2 are not reported. This equation has not been validated in children (<18 years), women, the elderly (>70 years), or ethnic groups other than Caucasians and Americans. Specimen Plasma specimen Performing Organization Address [facility] Phone Number [address] [place] [address] PATHOLOGY AND [facility] * Troponin (04/25/2018 5:42 PM) Troponin <0.30 0.00 - 0.30 ng/mL [facility] DEPARTMENT OF Comment: PATHOLOGY AND 0.11 - 1.49 GENOMIC MEDICINE ng/ml May indicate increased risk of acute coronary syndrome. >=1.5 ng/ml Consistent with acute myocardial infarction. The diagnostic value of a single normal or non-diagnostic result is questionable. Serial samples at 2-6 hour intervals are required to rule out acute myocardial injury. Specimen Plasma specimen Performing Organization Address City/[facility] Phone Number [facility] [address] [place] [address]. [place] [address] PATHOLOGY AND [facility]ICINE * CBC with platelet and differential (04/25/2018 5:42 PM) WBC 7.3 4.2 - 11.0 k/uL [facility] DEPARTMENT OF PATHOLOGY AND GENOMIC MEDICINE RBC 3.34 (L) 4.04 - 5.86 m/uL [facility] DEPARTMENT OF PATHOLOGY AND GENOMIC MEDICINE HGB 10.6 (L) 11.5 - 15.3 g/dL [facility] DEPARTMENT OF PATHOLOGY AND GENOMIC MEDICINE HCT 34.1 34.0 - 45.0 % [facility] DEPARTMENT OF PATHOLOGY AND GENOMIC MEDICINE MCV 102.1 (H) 80.0 - 98.0 fL [facility] DEPARTMENT OF PATHOLOGY AND GENOMIC MEDICINE MCH 31.7 27.0 - 34.0 pg [facility] DEPARTMENT OF PATHOLOGY AND GENOMIC MEDICINE MCHC 31.1 (L) 31.5 - 36.5 g/dL [facility] DEPARTMENT OF PATHOLOGY AND GENOMIC MEDICINE RDW - SD 59.0 (H) 37.0 - 51.0 fL [facility] DEPARTMENT OF PATHOLOGY AND GENOMIC MEDICINE MPV 9.5 7.4 - 10.4 fL [facility] DEPARTMENT OF PATHOLOGY AND GENOMIC MEDICINE Platelet count 315 150 - 400 k/uL [facility] DEPARTMENT OF PATHOLOGY AND GENOMIC MEDICINE Nucleated RBC 0.00 /100 WBC [facility] DEPARTMENT OF PATHOLOGY AND GENOMIC MEDICINE Neutrophils 67.8 (H) 36.0 - 66.0 % [facility] DEPARTMENT PATHOLOGY AND GENOMIC MEDICINE Lymphocytes 23.1 (L) 24.0 - 44.0 % [facility] DEPARTMENT OF PATHOLOGY AND GENOMIC MEDICINE Monocytes 5.9 0.0 - 6.0 % [facility] DEPARTMENT OF PATHOLOGY AND GENOMIC MEDICINE Eosinophils 1.9 0.0 - 6.0 % [facility] DEPARTMENT PATHOLOGY AND GENOMIC MEDICINE Basophils 0.7 0.0 - 1.2 % [facility] DEPARTMENT PATHOLOGY AND GENOMIC MEDICINE Immature granulocytes 0.6 0.0 - 1.0 % [facility] DEPARTMENT OF PATHOLOGY AND GENOMIC MEDICINE Specimen Blood Performing Organization Address City/[facility]/[place] [address] PATHOLOGY AND GENOMIC MEDICINE * Influenza antigen (04/25/2018 5:42 PM) Influenza antigen Negative for Influenza A/B [facility] DEPARTMENT OF antigen. PATHOLOGY AND Comment: GENOMIC MEDICINE Specimen Information Specimen Source: Nares Specimen Site: Right Specimen Nares - Right Performing Organization Address City/State/Zipcode Phone Number [address] [place] [address] PATHOLOGY AND GENOMIC MEDICINE * B natriuretic peptide (04/25/2018 5:42 PM) BNP 630 (H) 0 - 100 pg/mL [facility] PATHOLOGY AND GENOMIC MEDICINE Specimen Blood Performing Organization Address City/[facility]/Zipcode Phone Number [address] [place] [address] PATHOLOGY AND GENOMIC MEDICINE * Lactic acid level (04/25/2018 5:42 PM) Lactic acid 1.3 0.5 - 2.2 mmol/L [facility] DEPARTMENT OF PATHOLOGY AND GENOMIC MEDICINE Specimen Blood Performing Organization Address City/[facility]/Zipcode Phone Number [place] [phone] [place] [address] PATHOLOGY AND GENOMIC MEDICINE * Comprehensive metabolic panel (04/25/2018 5:42 PM) Sodium 135 135 - 150 mEq/L [facility] DEPARTMENT OF PATHOLOGY AND GENOMIC MEDICINE Potassium 4.2 3.5 - 5.0 mEq/L [facility] DEPARTMENT OF PATHOLOGY AND GENOMIC MEDICINE Chloride 97 (L) 98 - 112 mEq/L [facility] DEPARTMENT OF PATHOLOGY AND GENOMIC MEDICINE CO2 27 24 - 31 mmol/L [facility] DEPARTMENT OF PATHOLOGY AND GENOMIC MEDICINE Anion gap 11@ANIO 7 - 15 mEq/L [facility] DEPARTMENT OF PATHOLOGY AND GENOMIC MEDICINE BUN 19 (H) 7 - 18 mg/dL [facility] DEPARTMENT OF PATHOLOGY AND GENOMIC MEDICINE Creatinine 1.60 (H) 0.50 - 0.90 mg/dL [facility] DEPARTMENT OF PATHOLOGY AND GENOMIC MEDICINE Glucose 85 65 - 100 mg/dL [facility] DEPARTMENT OF PATHOLOGY AND GENOMIC MEDICINE Calcium 8.8 8.8 - 10.2 mg/dL [facility] DEPARTMENT OF PATHOLOGY AND GENOMIC MEDICINE Protein 8.8 (H) 6.3 - 8.3 g/dL [facility] DEPARTMENT OF PATHOLOGY AND GENOMIC MEDICINE Albumin 2.1 (L) 3.5 - 5.0 g/dL [facility] DEPARTMENT OF PATHOLOGY AND GENOMIC MEDICINE A/G ratio 0.3 (L) 0.7 - 3.8 [facility] DEPARTMENT OF PATHOLOGY AND GENOMIC MEDICINE Alkaline phosphatase 125 (H) 0 - 104 U/L [facility] DEPARTMENT OF PATHOLOGY AND GENOMIC MEDICINE AST 35 10 - 35 U/L [facility] DEPARTMENT OF PATHOLOGY AND GENOMIC MEDICINE ALT 13 5 - 50 U/L [facility] DEPARTMENT OF PATHOLOGY AND GENOMIC MEDICINE Total bilirubin 0.4 0.2 - 1.2 mg/dL [facility] DEPARTMENT OF PATHOLOGY AND GENOMIC MEDICINE Specimen Plasma specimen Performing Organization Address City/State/Zipcode Phone Number [place] [phone] [place] [address] PATHOLOGY AND GENOMIC MEDICINE * Respiratory pathogen panel (04/25/2018 5:40 PM) Respiratory pathogen Negative for all pathogens [facility] DEPARTMENT OF panel tested: PATHOLOGY AND Negative for Adenovirus GENOMIC MEDICINE Negative for Coronavirus HKU1 Negative for Coronavirus NL63 Negative for Coronavirus 229E Negative for Coronavirus OC43 Negative for Human Metapneumovirus Negative for Rhinovirus/Enterovirus Negative for Influenza A Negative for Influenza A/H1 Negative for Influenza A/H3 Negative for Influenza A/H1-2009 Negative for Influenza B Negative for Parainfluenza Virus 1 Negative for Parainfluenza Virus 2 Negative for Parainfluenza Virus 3 Negative for Parainfluenza Virus 4 Negative for Respiratory Syncytial Virus Negative for Bordetella pertussis Negative for Chlamydophila pneumoniae Negative for Mycoplasma pneumoniae This real-time PCR assay detects the presence of nucleic acids (RNA or DNA) for the respiratory pathogens listed. A result of "Not-detected" does not exclude the possibility of the presence of one or more pathogens at concentrations less than the detectable limits of the assay. Comment: Specimen Information Specimen Source: Nasopharyngeal Specimen Site: swab Specimen Nasopharyngeal Performing Organization Address City/[facility] Phone Number [facility] DEPARTMENT OF [address] [place] [phone] PATHOLOGY AND GENOMIC MEDICINE * Blood culture, aerobic & anaerobic (04/25/2018 4:43 PM) Only the most recent of 2 results within the time period is included. Blood culture isolate No growth after 5 days of [facility] DEPARTMENT OF incubation. PATHOLOGY AND Comment: GENOMIC MEDICINE Specimen Information Specimen Source: Blood Specimen Site: LEFT WRIST Specimen Blood Performing Organization Address City/[facility] Phone Number [facility] [address] PATHOLOGY AND GENOMIC MEDICINE * NM Lung Ventilation Perfusion (04/25/2018 4:31 PM) Narrative Performed At CLINICAL HISTORY: hypoxia RADIANT TECHNIQUE: The patient breathed 15-20 mCi of xenon-133 gas through a closed ventilation system while dynamic imaging of the lungs was performed in the posterior and anterior projections. The patient was then injected with 5 mCi of [id number] intravenously, followed by imaging of the lungs in anterior, posterior, and oblique projections. FINDINGS: Marked air trapping left lung. Mildly reduced perfusion left lung, secondary to the air trapping. Heterogeneous perfusion and ventilation in the right lung. IMPRESSION: Low Probability for pulmonary embolism. [facility]-ANN Procedure Note Hm Interface, Radiology Results Incoming - 04/25/2018 4:56 PM CDT CLINICAL HISTORY: hypoxia TECHNIQUE: The patient breathed 15-20 mCi of xenon-133 gas through a closed ventilation system while dynamic imaging of the lungs was performed in the posterior and anterior projections. The patient was then injected with 5 mCi of technetium-99m -MAA intravenously, followed by imaging of the lungs in anterior, posterior, and oblique projections. FINDINGS: Marked air trapping left lung. Mildly reduced perfusion left lung, secondary to the air trapping. Heterogeneous perfusion and ventilation in the right lung. IMPRESSION: Low Probability for pulmonary embolism. [facility]-PC Performing Organization Address [facility] Phone Number [facility] [address] [place] [address] * ECG 12 lead (04/25/2018 4:23 PM) Ventricular rate 61 [facility] Atrial rate 61 [facility] DC interval 188 [facility] QRSD interval 68 [facility] QT interval 438 [facility] QTC interval 440 [facility] P axis 1 65 [facility] QRS axis 1 72 [facility] T wave axis 55 [facility] EKG impression Normal sinus rhythm-Septal [facility] MUSE infarct , age undetermined-Abnormal ECG-No previous ECGs available- Performing Organization Address [facility] Phone Number [facility] [address] [place] [address] * CT Chest Wo Contrast (04/25/2018 3:19 PM) Narrative Performed At EXAMINATION: [employer] CT CHEST WO CONTRAST CLINICAL HISTORY: thoracic back pain hx of compression fx hypoxia poor gfr. TECHNIQUE: Multiple axial images of the chest were obtained without intravenous contrast. The lack of intravenous contrast reduces the sensitivity of detecting solid organ disease and evaluating vasculature. Sagittal and coronal computerized reformatted images were also obtained. All CT images were acquired using low-dose technique with automated exposure control. COMPARISON: None. FINDINGS: 1. The heart size is normal. There are atherosclerotic calcifications involving the thoracic aorta and coronary vessels. No mediastinal lymphadenopathy. There are calcified lymph nodes relating to sequela of prior granulomatous infection. 2. Lungs are mildly hyperinflated with emphysematous changes present bilaterally. There is volume loss in the base of the lingula. 3. Layering heterogeneous material in the distal trachea and proximal right mainstem bronchus likely relates to mucous and secretions. 4. There are several calcified granulomas scattered throughout the lungs. A noncalcified nodule measuring 3 to 4 mm in the right middle lobe on image 73 of series 4 and may be postinflammatory in etiology. However, if the patient has appropriate risk factors follow-up in 12 month interval time may be of benefit. 5. Osseous structures are demineralized. There is a compression fracture involving the L1 vertebral body and the T9 vertebral body. There is loss of vertebral height at the T12 level. There are healed left-sided rib fractures. 6. Limited images through the upper abdomen demonstrates a 4.5 x 4.4 cm heterogeneous fat-containing mass in the left retroperitoneum superior to the left kidney. Differential considerations include an angiomyolipoma or an adrenal myolipoma. Correlation with MRI findings may be of further benefit when clinically capable. IMPRESSION: 1. Hyperinflation with emphysematous changes present bilaterally. 2. 3 to 4 mm right middle lobe pulmonary nodule. The findings are most likely postinflammatory in etiology. However, and the clinical setting of appropriate risk factors, follow-up in 12 month interval time may be of benefit if there is clinical concern. 3. Heterogeneous material layering dependently in the distal trachea and right mainstem bronchus likely relates to secretions and mucous. 4. Left retroperitoneal mass measuring approximately 4.5 x 4.4 cm superior to the left kidney. Left adrenal gland is not definitively visualized. Findings may relate to a left renal angiomyolipoma or less likely left adrenal myelolipoma. Correlation with MRI findings may be of further benefit for characterization. [facility]-[id number] Procedure Note [facility], Radiology Results - 04/25/2018 3:32 PM CDT EXAMINATION: CT CHEST WO CONTRAST CLINICAL HISTORY: thoracic back pain hx of compression fx hypoxia poor gfr. TECHNIQUE: Multiple axial images of the chest were obtained without intravenous contrast. The lack of intravenous contrast reduces the sensitivity of detecting solid organ disease and evaluating vasculature. Sagittal and coronal computerized reformatted images were also obtained. All CT images were acquired using low-dose technique with automated exposure control. COMPARISON: None. FINDINGS: 1. The heart size is normal. There are atherosclerotic calcifications involving the thoracic aorta and coronary vessels. No mediastinal lymphadenopathy. There are calcified lymph nodes relating to sequela of prior granulomatous infection. 2. Lungs are mildly hyperinflated with emphysematous changes present bilaterally. There is volume loss in the base of the lingula. 3. Layering heterogeneous material in the distal trachea and proximal right mainstem bronchus likely relates to mucous and secretions. 4. There are several calcified granulomas scattered throughout the lungs. A noncalcified nodule measuring 3 to 4 mm in the right middle lobe on image 73 of series 4 and may be postinflammatory in etiology. However, if the patient has appropriate risk factors follow-up in 12 month interval time may be of benefit. 5. Osseous structures are demineralized. There is a compression fracture involving the L1 vertebral body and the T9 vertebral body. There is loss of vertebral height at the T12 level. There are healed left-sided rib fractures. 6. Limited images through the upper abdomen demonstrates a 4.5 x 4.4 cm heterogeneous fat-containing mass in the left retroperitoneum superior to the left kidney. Differential considerations include an angiomyolipoma or an adrenal myolipoma. Correlation with MRI findings may be of further benefit when clinically capable. IMPRESSION: 1. Hyperinflation with emphysematous changes present bilaterally. 2. 3 to 4 mm right middle lobe pulmonary nodule. The findings are most likely postinflammatory in etiology. However, and the clinical setting of appropriate risk factors, follow-up in 12 month interval time may be of benefit if there is clinical concern. 3. Heterogeneous material layering dependently in the distal trachea and right mainstem bronchus likely relates to secretions and mucous. 4. Left retroperitoneal mass measuring approximately 4.5 x 4.4 cm superior to the left kidney. Left adrenal gland is not definitively visualized. Findings may relate to a left renal angiomyolipoma or less likely left adrenal myelolipoma. Correlation with MRI findings may be of further benefit for characterization. [facility]-[id number] Performing Organization Address City/State/Zipcode Phone Number [facility] [address] [place] [address] after 06/19/2017 Insurance Payer Benefit Subscriber ID Type Phone Address Plan / Group HUMANA MEDICARE HUMANA xxxxxxxxx PPO MEDICARE PPO/PFFS/E [facility]
--- OUTSIDE RECORDS SUMMARY | 2018-07-23 05:31 | XMS REPORT | Summary of Care ---
Author Author [facility] Organization [facility] Address Unknown Phone Unavailable Encounter HQ Cherie_cynthia(FIN) [id number] Date(s): 09/06/17 - 09/07/17 [facility] [address] [place], [place] [address] [phone] Vital Signs No data available for this [...]
--- OUTSIDE RECORDS SUMMARY | 2018-07-23 05:32 | XMS REPORT | Summary of Care ---
Author Author [facility] Organization [facility] Address Unknown Phone Unavailable Encounter KENA Calles(GISSEL) [id number] Date(s): 10/17/17 - 10/18/17 [facility] [address] [place] [address]- [phone] Vital Signs No data available for this section Problem List Condition Effective Dates Status Health Status Informant Obesity(Confirmed) Active Allergies, Adverse Reactions, Alerts Substance Reaction Severity Status penicillins Active Tylenol Active Medications Estrace 1 mg oral tablet 1 mg=1 tab, PO, Daily, # 90 tab, 1 Refill(s), Pharmacy: [facility] [id number] Start Date: 10/17/17 Status: Ordered gemfibrozil 600 mg oral tablet 600 mg=1 tab, PO, BID, # 180 tab, 1 Refill(s), Pharmacy: [facility] [id number] Start Date: 10/17/17 Status: Ordered hydrochlorothiazide-triamterene 25 mg-37.5 mg oral tablet 1 tab, PO, Daily, # 90 tab, 1 Refill(s), Pharmacy: [facility] [id number] Start Date: 10/17/17 Stop Date: 04/15/18 Status: Ordered omeprazole 40 mg oral delayed release capsule 40 mg=1 cap, PO, Daily, # 90 cap, 1 Refill(s), Pharmacy: [facility] [id number] Start Date: 10/17/17 Status: Ordered potassium chloride 20 mEq oral tablet, extended release 20 mEq=1 tab, PO, BID, # 180 tab, 1 Refill(s), Pharmacy: [facility] [id number] Start Date: 10/17/17 Stop Date: 04/15/18 Status: Ordered Results No data available for this section [...]
--- OUTSIDE RECORDS SUMMARY | 2018-07-23 05:32 | XMS REPORT | Summary of Care ---
Author Author [facility] [place] Organization [facility] [place] Address Unknown Phone Unavailable Encounter HQ Cherie_cynthia(FIN) [id number] Date(s): 12/31/17 - 12/31/17 [facility] [place] [address] [place], [place] [address] [phone] Encounter Diagnosis Encounter for screening mammogram for malignant neoplasm of breast (Final) - Discharge Disposition: Home or Self Care Attending Physician: Lino Erickson MD Vital Signs No data available for this section Problem List Condition Effective Dates Status Health Status Informant Hypertension(Confirm Active ed) Lumbar Active radiculopathy(Confir med) Obesity(Confirmed) Active Allergies, Adverse Reactions, Alerts Substance Reaction Severity Status penicillins Active Tylenol Active Medications No data available for this section Results No data available for this section Immunizations Given and Recorded Vaccine Date Status Refusal Reason pneumococcal 23-valent vaccine 05/20/16 Recorded influenza virus vaccine, inactivated 05/20/16 Recorded Procedures Procedure Date Related Diagnosis Body Site Status Cataract surgery Completed Cholecystectomy Completed Operation on colon Completed Procedure on adenoids Completed Removal of remaining ovary Completed Tonsillectomy Completed Uterus excision Completed Social History Social History Type Response Smoking Status Current every day smoker; Type: Cigarettes; Exposure to Tobacco Smoke None; Cigarette Smoking Last 365 Days Yes; Reg Smoking Cessation Counseling No; Total pack years: 51; entered on: 03/31/18 Assessment and Plan No data available for this section
--- OUTSIDE RECORDS SUMMARY | 2018-07-23 05:32 | XMS REPORT | Summary of Care ---
Author Author [facility] Organization [facility] Address Unknown Phone Unavailable Encounter HQ Cherie_cynthia(FIN) [phone] Date(s): 11/03/17 - 11/04/17 [facility] [address] [place] [address]- [phone] Vital Signs No data available for this [...] No; Total pack years: 51; entered on: 07/09/17 Assessment and Plan No data available for this section
--- OUTSIDE RECORDS SUMMARY | 2018-07-23 05:32 | XMS REPORT | Summary of Care ---
Author Author [facility] Organization [facility] Address Unknown Phone Unavailable Encounter KENA Calles(FIN) [phone] Date(s): 02/23/18 - 02/23/18 [facility] [address] [place] [address]- [phone] Attending Physician: Lino Erickson MD Vital Signs [...]
--- OUTSIDE RECORDS SUMMARY | 2018-07-23 05:32 | XMS REPORT | Summary of Care ---
Author Author [facility] Organization [facility] Address Unknown Phone Unavailable Encounter KENA Calles(FIN) [id number] Date(s): 11/05/17 - 11/05/17 [facility] [address] [place] [address]- [phone] Attending Physician: Lino Erickson MD Vital Signs [...]
--- OUTSIDE RECORDS SUMMARY | 2018-07-23 05:32 | XMS REPORT | Summary of Care ---
Author Author [facility] Organization [facility] Address Unknown Phone Unavailable Encounter KENA Calles(FIN) [id number] Date(s): 10/22/17 - 10/22/17 [facility] [address] [place] [address]- [phone] Attending Physician: Lino Erickson MD Vital Signs [...]
--- OUTSIDE RECORDS SUMMARY | 2018-07-23 05:32 | XMS REPORT | Summary of Care ---
Author Author [facility] Organization [facility] Address Unknown Phone Unavailable Encounter KENA Calles(FIN) [id number] Date(s): 12/18/17 - 12/19/17 [facility] [address] [place] [address]- [phone] Vital Signs No data available for this [...]
--- OUTSIDE RECORDS SUMMARY | 2018-07-23 05:32 | XMS REPORT | Clinical Summary ---
Author Author [facility] Organization [facility] Address Unknown Phone Unavailable Care Team Providers Care Acid Remover Name Role Phone PCP Unavailable Allergies Active Allergy Reactions Severity Noted Date Comments Acetaminophen Palpitations Low 04/25/2018 Reaction noted decades ago Penicillin G Hives Low 04/25/2018 Current Medications Prescription Sig. Disp. Refills Start End Date Status Date ergocalciferol (VITAMIN Take 1 capsule by mouth 4 capsule 0 05/21/20 Active D2) 50,000 unit weekly. 18 capsuleIndications: IgA myeloma Omeprazole 40 mg Take 1 capsule by mouth 30 capsule 0 05/20/20 Active capsuleIndications: IgA daily. 18 myeloma polyethylene glycol 3350 Mix 17 grams into 4 to 8 30 Each 0 05/21/20 05/23/20 Active (GLYCOLAX) 17 gram oral ounces of water, juice, 18 18 powder packetIndications: soda, tea or coffee and IgA myeloma drink as directed. traMADol (ULTRAM) 50 mg Take 1 tablet by mouth 90 tablet 0 05/20/20 Active tabletIndications: IgA every 8 hours as needed 18 myeloma for Pain. dexamethasone (DECADRON) Take 5 tablets by mouth 10 tablet 0 05/21/20 05/23/20 Active 4 mg tabletIndications: daily (with breakfast) 18 18 IgA myeloma for 2 days. dexamethasone (DECADRON) Take 5 tablets by mouth 40 tablet 0 05/25/20 Active 4 mg tabletIndications: weekly. 18 IgA myeloma potassium chloride (KDUR) Take 10 mEq by mouth 05/20/20 Suspended 10 mEq extended release daily. 18 tablet Omeprazole 40 mg capsule Take 40 mg by mouth 05/20/20 Suspended daily. 18 losartan (COZAAR) 50 mg Take 50 mg by mouth 05/20/20 Suspended tablet daily. 18 furosemide (LASIX) 20 mg Take 20 mg by mouth 05/20/20 Suspended tablet daily. 18 HYDROcodone-acetaminophen Take 1 tablet by mouth 05/20/20 Suspended (NORCO) 5-325 mg tablet every 6 hours as needed 18 for Pain. traMADol (ULTRAM) 50 mg Take 50 mg by mouth every 05/20/20 Suspended tablet 8 hours as needed for 18 Pain. Active Problems Problem Noted Date Adrenal mass, left 05/20/2018 IgA myeloma 05/18/2018 Compression fracture of body of thoracic vertebra 05/18/2018 Intentional opiate overdose Cluster B personality disorder Aspiration pneumonia Urinary retention Physical deconditioning Right Renal mass Resolved Problems Problem Noted Date Resolved Date Delirium 04/29/2018 05/18/2018 Severe episode of recurrent major depressive disorder, without psychotic 06/201805/18/2018 features Suicidal ideations 04/27/2018 05/18/2018 Chronic pain syndrome 04/27/2018 05/18/2018 Intentional drug overdose 04/26/2018 05/18/2018 CHF (congestive heart failure) 04/26/2018 05/18/2018 Altered mental status 05/18/2018 Suicidal behavior with attempted self-injury 05/18/2018 Multiple myeloma in remission 05/20/2018 Encounters Date Type Specialty Care Team Description 05/07/2018 Telephone Glynn Natanael 05/01/2018 Procedure Pass 05/01/2018 Procedure Pass 04/26/2018 [facility] Patricia Parker MD Compression fracture of Encounter Lea Palm MD body of thoracic vertebra Leighton Jones MD (Primary Dx); Ruiz Kelley MD Intentional drug overdose, initial encounter; Congestive heart failure, unspecified HF chronicity, unspecified heart failure type; Intentional opiate overdose, initial encounter; Altered mental status, unspecified altered mental status type; Suicidal behavior with attempted self-injury; Chronic systolic congestive heart failure; Oropharyngeal dysphagia; Hypoxia after 05/19/2017 Family History Medical History Relation Name Comments Parkinsonism Father Relation Name Status Comments Daughter Alive Father (Age 84) Mother (Age 91) Social History Tobacco Use Types Packs/Day Years Used Date Current Every Day Smoker Cigarettes 1 53 Smokeless Tobacco: Never Used Tobacco Cessation: Ready to Quit: No Alcohol Use Drinks/Week oz/Week Comments No Sex Assigned at Date Recorded Not on file Last Filed Vital Signs Vital Sign Reading Time Taken Blood Pressure 119/72 05/20/2018 12:00 PM CDT Pulse 66 05/20/2018 12:00 PM CDT Temperature 36.8 C (98.3 F) 05/20/2018 12:00 PM CDT Respiratory Rate 16 05/20/2018 12:00 PM CDT Oxygen Saturation 93% 05/19/2018 7:49 PM CDT Inhaled Oxygen - - Concentration Weight 51.4 kg (113 lb 6 oz) 04/28/2018 9:00 PM CDT Height 154.9 cm (5' 1") 04/28/2018 9:00 PM CDT Body Mass Index 21.42 04/28/2018 9:00 PM CDT Plan of Treatment Date Type Specialty Care Team Description 06/05/2018 Office Visit [facility] Jemima Maravilla NP [phone] Health Maintenance Due Date Last Done Comments IMM Pneumococcal Age 65 2004 and Up IMM Influenza Seasonal 07/20/2018Jul to December (>/=19 yrs) Results * URIC ACID (05/19/2018 5:35 AM) Component Value Ref Range Uric acid 4.5 2.3 - 6.6 mg/dL Specimen Performing Laboratory Blood MISYS * BASIC METABOLIC PANEL (05/19/2018 5:35 AM) Only the most recent of 23 results within the time period is included. Component Value Ref Range CO2 30 21 - 31 mmol/L Chloride 105 98 - 107 mmol/L Potassium 3.8 3.5 - 5.1 mmol/L Sodium 143 136 - 145 mmol/L Glucose 74 70 - 110 mg/dL Urea Nitrogen 24 7 - 25 mg/dL Creatinine 1.40 (H) 0.6 - 1.2 mg/dL Anion Gap 8 Calcium 8.9 8.6 - 10.3 mg/dL GFR, Estimated 36 mL/min/1.73 m2 GFR, Estim, Afr-Am 44 mL/min/1.73 m2 Specimen Performing Laboratory Blood MISYS * CBC (05/15/2018 5:20 AM) Only the most recent of 2 results within the time period is included. Component Value Ref Range WBC 5.9 4.5 - 11.0 K/uL RBC 2.79 (L) 4.20 - 5.40 M/uL Hemoglobin 8.6 (L) 12.0 - 16.0 g/dL Hematocrit 27.7 (L) 37.0 - 47.0 % MCV 99 (H) 82 - 92 fL MCH 30.8 27.0 - 32.0 pg MCHC 31.0 (L) 32.0 - 36.0 g/dL RDW 53.1 (H) 36.4 - 46.3 fL Platelet 307 150 - 400 K/uL Mean Platelet Volume 9.4 9.4 - 12.4 fL Percent NRBC 0.0 Absolute NRBC 0.00 Specimen Performing Laboratory Blood MISYS * XRAY CHEST 1 VIEW (05/14/2018 8:41 PM) Only the most recent of 6 results within the time period is included. Specimen Performing Laboratory SMS Impressions IMPRESSION: 1.Persistent small left pneumothorax. 2.Stable left basilar and lingular opacities likely atelectasis with superimposed small left effusion. Dictated By: Jose Llamas DO, 05/15/2018 6:03 AM I have reviewed the study and agree with the findings in this report. Signed By: Theo eLwis MD, 05/15/2018 8:41 AM Narrative EXAM: XR CHEST 1 VIEW DATE: 05/14/2018 8:42 PM INDICATION: ptx after adrenal bx COMPARISON: Chest x-ray 05/14/2018. FINDINGS: Devices, Lines, and Tubes: None. Heart and Mediastinum: The cardiomediastinal silhouette is unremarkable. Mild atherosclerotic calcification of the thoracic aorta. Lungs and Pleura: Small left pneumothorax. Interval improvement in left basilar and lingular airspace opacity. Small left pleural effusion. Bones and Soft Tissues: Chronic right rib fracture deformities. Compression fractures and kyphoplasty better seen on recent CT chest. Procedure Note Interface, Rad/Mammog In - 05/15/2018 8:46 AM CDT EXAM: XR CHEST 1 VIEW DATE: 05/14/2018 8:42 PM INDICATION: ptx after adrenal bx COMPARISON: Chest x-ray 05/14/2018. FINDINGS: Devices, Lines, and Tubes: None. Heart and Mediastinum: The cardiomediastinal silhouette is unremarkable. Mild atherosclerotic calcification of the thoracic aorta. Lungs and Pleura: Small left pneumothorax. Interval improvement in left basilar and lingular airspace opacity. Small left pleural effusion. Bones and Soft Tissues: Chronic right rib fracture deformities. Compression fractures and kyphoplasty better seen on recent CT chest. IMPRESSION IMPRESSION: 1. Persistent small left pneumothorax. 2. Stable left basilar and lingular opacities likely atelectasis with superimposed small left effusion. Dictated By: Jose Llamas DO, 05/15/2018 6:03 AM I have reviewed the study and agree with the findings in this report. Signed By: Theo Lewis MD, 05/15/2018 8:41 AM * CT GUIDANCE CYST ASPER DRAIN (05/14/2018 4:53 PM) Specimen Performing Laboratory SMS Impressions IMPRESSION: CT-guided biopsy of left adrenal mass with asymptomatic small left pneumothorax. Plan: CXR now for baseline, then repeat in one hour and again in four hours. Dictated By: Darion Foster MD, 05/14/2018 4:58 PM I have reviewed the study and agree with the findings in this report. Signed By: Jamaica Schuster MD, 05/19/2018 7:35 AM Narrative Procedure: CT-guided biopsy of left adrenal mass Date and Time: 05/14/2018 4:53 PM bending machine operator: Dr. Darion Foster MD Assistants: Dr. Trevor RAVI Staff: Jamaica Schuster MD Preoperative diagnosis: left adrenal mass Post operative diagnosis: left adrenal mass Conscious Sedation: Fentanyl 50 mcg and Versed 1 mg. Patient was continuously monitored by the dedicated IR nurse. Dose Length Product: 323 mGy*cm Contrast used: NONE Estimated blood loss: less than 5 mL Specimens: 6 core biopsy samples, 2 FNA biopsy samples Implants/Grafts: None Blood Products Administered: None Complications: Small left pneumothorax Condition: Stable Disposition: PACU CPT procedure code: 31104, 05101, 42826 S&I code: [id number] DISCUSSION: The prior CT and MRI were evaluated which demonstrated a large left adrenal mass and a right renal mass. A limited CT scan was performed in the region of abnormality, which redemonstrated the finding as previously described. A safe approach was determined for specimen acquisition. The patient was placed in the left lateral decubitus position. The left back was prepped and draped in the usual sterile fashion. 1% lidocaine was infiltrated into the subcutaneous tissues for local anesthesia. Under computed tomographic guidance, a 16 gauge coaxial introducer needle was passed into the mass. A total of 2 passes were made through the mass with 22-gauge needles. The samples were given to the pathologist for evaluation and adequacy confirmed. A total of 6 core biopsies were then obtained through the needle guide using a 18-gauge, 15 cm long, 20 mm throw core biopsy gun. All specimens were given to pathology for further evaluation. The patient developed an asymptomatic small left pneumothorax. The decision was made to treat conservatively with observation. Jamaica Schuster MD was present throughout the procedure. Condition: Stable Disposition: PACU Procedure Note Interface, Rad/Mammog In - 05/19/2018 7:40 AM CDT Procedure: CT-guided biopsy of left adrenal mass Date and Time: 05/14/2018 4:53 PM bending machine operator: Dr. Darion Foster MD Assistants: Dr. Trevor RAVI Staff: Jamaica Schuster MD Preoperative diagnosis: left adrenal mass Post operative diagnosis: left adrenal mass Conscious Sedation: Fentanyl 50 mcg and Versed 1 mg. Patient was continuously monitored by the dedicated IR nurse. Dose Length Product: 323 mGy*cm Contrast used: NONE Estimated blood loss: less than 5 mL Specimens: 6 core biopsy samples, 2 FNA biopsy samples Implants/Grafts: None Blood Products Administered: None Complications: Small left pneumothorax Condition: Stable Disposition: PACU CPT procedure code: 02264, 68433, 43837 S&I code: [id number] DISCUSSION: The prior CT and MRI were evaluated which demonstrated a large left adrenal mass and a right renal mass. A limited CT scan was performed in the region of abnormality, which redemonstrated the finding as previously described. A safe approach was determined for specimen acquisition. The patient was placed in the left lateral decubitus position. The left back was prepped and draped in the usual sterile fashion. 1% lidocaine was infiltrated into the subcutaneous tissues for local anesthesia. Under computed tomographic guidance, a 16 gauge coaxial introducer needle was passed into the mass. A total of 2 passes were made through the mass with 22-gauge needles. The samples were given to the pathologist for evaluation and adequacy confirmed. A total of 6 core biopsies were then obtained through the needle guide using a 18-gauge, 15 cm long, 20 mm throw core biopsy gun. All specimens were given to pathology for further evaluation. The patient developed an asymptomatic small left pneumothorax. The decision was made to treat conservatively with observation. Jamaica Schuster MD was present throughout the procedure. Condition: Stable Disposition: PACU IMPRESSION IMPRESSION: CT-guided biopsy of left adrenal mass with asymptomatic small left pneumothorax. Plan: CXR now for baseline, then repeat in one hour and again in four hours. Dictated By: Darion Foster MD, 05/14/2018 4:58 PM I have reviewed the study and agree with the findings in this report. Signed By: Jamaica Schuster MD, 05/19/2018 7:35 AM * PERCUT BIOPSY, ABDOMINAL MASS (05/14/2018 4:53 PM) Specimen Performing Laboratory SMS Impressions IMPRESSION: CT-guided biopsy of left adrenal mass with asymptomatic small left pneumothorax. Plan: CXR now for baseline, then repeat in one hour and again in four hours. Dictated By: Darion Foster MD, 05/14/2018 4:58 PM I have reviewed the study and agree with the findings in this report. Signed By: Jamaica Schuster MD, 05/19/2018 7:35 AM Narrative Procedure: CT-guided biopsy of left adrenal mass Date and Time: 05/14/2018 4:53 PM bending machine operator: Dr. Darion Foster MD Assistants: Dr. Trevor RAVI Staff: Jamaica Schuster MD Preoperative diagnosis: left adrenal mass Post operative diagnosis: left adrenal mass Conscious Sedation: Fentanyl 50 mcg and Versed 1 mg. Patient was continuously monitored by the dedicated IR nurse. Dose Length Product: 323 mGy*cm Contrast used: NONE Estimated blood loss: less than 5 mL Specimens: 6 core biopsy samples, 2 FNA biopsy samples Implants/Grafts: None Blood Products Administered: None Complications: Small left pneumothorax Condition: Stable Disposition: PACU CPT procedure code: 97650, 32909, 05436 S&I code: [id number] DISCUSSION: The prior CT and MRI were evaluated which demonstrated a large left adrenal mass and a right renal mass. A limited CT scan was performed in the region of abnormality, which redemonstrated the finding as previously described. A safe approach was determined for specimen acquisition. The patient was placed in the left lateral decubitus position. The left back was prepped and draped in the usual sterile fashion. 1% lidocaine was infiltrated into the subcutaneous tissues for local anesthesia. Under computed tomographic guidance, a 16 gauge coaxial introducer needle was passed into the mass. A total of 2 passes were made through the mass with 22-gauge needles. The samples were given to the pathologist for evaluation and adequacy confirmed. A total of 6 core biopsies were then obtained through the needle guide using a 18-gauge, 15 cm long, 20 mm throw core biopsy gun. All specimens were given to pathology for further evaluation. The patient developed an asymptomatic small left pneumothorax. The decision was made to treat conservatively with observation. Jamaica Schuster MD was present throughout the procedure. Condition: Stable Disposition: PACU Procedure Note Interface, Rad/Mammog In - 05/19/2018 7:40 AM CDT Procedure: CT-guided biopsy of left adrenal mass Date and Time: 05/14/2018 4:53 PM bending machine operator: Dr. Darion Foster MD Assistants: Dr. Trevor RAVI Staff: Jamaica Schuster MD Preoperative diagnosis: left adrenal mass Post operative diagnosis: left adrenal mass Conscious Sedation: Fentanyl 50 mcg and Versed 1 mg. Patient was continuously monitored by the dedicated IR nurse. Dose Length Product: 323 mGy*cm Contrast used: NONE Estimated blood loss: less than 5 mL Specimens: 6 core biopsy samples, 2 FNA biopsy samples Implants/Grafts: None Blood Products Administered: None Complications: Small left pneumothorax Condition: Stable Disposition: PACU CPT procedure code: 68176, 28803, 86044 S&I code: [id number] DISCUSSION: The prior CT and MRI were evaluated which demonstrated a large left adrenal mass and a right renal mass. A limited CT scan was performed in the region of abnormality, which redemonstrated the finding as previously described. A safe approach was determined for specimen acquisition. The patient was placed in the left lateral decubitus position. The left back was prepped and draped in the usual sterile fashion. 1% lidocaine was infiltrated into the subcutaneous tissues for local anesthesia. Under computed tomographic guidance, a 16 gauge coaxial introducer needle was passed into the mass. A total of 2 passes were made through the mass with 22-gauge needles. The samples were given to the pathologist for evaluation and adequacy confirmed. A total of 6 core biopsies were then obtained through the needle guide using a 18-gauge, 15 cm long, 20 mm throw core biopsy gun. All specimens were given to pathology for further evaluation. The patient developed an asymptomatic small left pneumothorax. The decision was made to treat conservatively with observation. Jamaica Schuster MD was present throughout the procedure. Condition: Stable Disposition: PACU IMPRESSION IMPRESSION: CT-guided biopsy of left adrenal mass with asymptomatic small left pneumothorax. Plan: CXR now for baseline, then repeat in one hour and again in four hours. Dictated By: Darion Foster MD, 05/14/2018 4:58 PM I have reviewed the study and agree with the findings in this report. Signed By: Jamaica Schuster MD, 05/19/2018 7:35 AM * FNA W/IMAGE (05/14/2018 4:53 PM) Specimen Performing Laboratory SMS Impressions IMPRESSION: CT-guided biopsy of left adrenal mass with asymptomatic small left pneumothorax. Plan: CXR now for baseline, then repeat in one hour and again in four hours. Dictated By: Darion Foster MD, 05/14/2018 4:58 PM I have reviewed the study and agree with the findings in this report. Signed By: Jamaica Schuster MD, 05/19/2018 7:35 AM Narrative Procedure: CT-guided biopsy of left adrenal mass Date and Time: 05/14/2018 4:53 PM bending machine operator: Dr. Darion Foster MD Assistants: Dr. Trevor RAVI Staff: Jamaica Schuster MD Preoperative diagnosis: left adrenal mass Post operative diagnosis: left adrenal mass Conscious Sedation: Fentanyl 50 mcg and Versed 1 mg. Patient was continuously monitored by the dedicated IR nurse. Dose Length Product: 323 mGy*cm Contrast used: NONE Estimated blood loss: less than 5 mL Specimens: 6 core biopsy samples, 2 FNA biopsy samples Implants/Grafts: None Blood Products Administered: None Complications: Small left pneumothorax Condition: Stable Disposition: PACU CPT procedure code: 71921, 78477, 77778 S&I code: [id number] DISCUSSION: The prior CT and MRI were evaluated which demonstrated a large left adrenal mass and a right renal mass. A limited CT scan was performed in the region of abnormality, which redemonstrated the finding as previously described. A safe approach was determined for specimen acquisition. The patient was placed in the left lateral decubitus position. The left back was prepped and draped in the usual sterile fashion. 1% lidocaine was infiltrated into the subcutaneous tissues for local anesthesia. Under computed tomographic guidance, a 16 gauge coaxial introducer needle was passed into the mass. A total of 2 passes were made through the mass with 22-gauge needles. The samples were given to the pathologist for evaluation and adequacy confirmed. A total of 6 core biopsies were then obtained through the needle guide using a 18-gauge, 15 cm long, 20 mm throw core biopsy gun. All specimens were given to pathology for further evaluation. The patient developed an asymptomatic small left pneumothorax. The decision was made to treat conservatively with observation. Jamaica Schuster MD was present throughout the procedure. Condition: Stable Disposition: PACU Procedure Note Interface, Rad/Mammog In - 05/19/2018 7:40 AM CDT Procedure: CT-guided biopsy of left adrenal mass Date and Time: 05/14/2018 4:53 PM bending machine operator: Dr. Darion Foster MD Assistants: Dr. Trevor RAVI Staff: Jamaica Schuster MD Preoperative diagnosis: left adrenal mass Post operative diagnosis: left adrenal mass Conscious Sedation: Fentanyl 50 mcg and Versed 1 mg. Patient was continuously monitored by the dedicated IR nurse. Dose Length Product: 323 mGy*cm Contrast used: NONE Estimated blood loss: less than 5 mL Specimens: 6 core biopsy samples, 2 FNA biopsy samples Implants/Grafts: None Blood Products Administered: None Complications: Small left pneumothorax Condition: Stable Disposition: PACU CPT procedure code: 63663, 32477, 14584 S&I code: [id number] DISCUSSION: The prior CT and MRI were evaluated which demonstrated a large left adrenal mass and a right renal mass. A limited CT scan was performed in the region of abnormality, which redemonstrated the finding as previously described. A safe approach was determined for specimen acquisition. The patient was placed in the left lateral decubitus position. The left back was prepped and draped in the usual sterile fashion. 1% lidocaine was infiltrated into the subcutaneous tissues for local anesthesia. Under computed tomographic guidance, a 16 gauge coaxial introducer needle was passed into the mass. A total of 2 passes were made through the mass with 22-gauge needles. The samples were given to the pathologist for evaluation and adequacy confirmed. A total of 6 core biopsies were then obtained through the needle guide using a 18-gauge, 15 cm long, 20 mm throw core biopsy gun. All specimens were given to pathology for further evaluation. The patient developed an asymptomatic small left pneumothorax. The decision was made to treat conservatively with observation. Jamaica Schuster MD was present throughout the procedure. Condition: Stable Disposition: PACU IMPRESSION IMPRESSION: CT-guided biopsy of left adrenal mass with asymptomatic small left pneumothorax. Plan: CXR now for baseline, then repeat in one hour and again in four hours. Dictated By: Darion Foster MD, 05/14/2018 4:58 PM I have reviewed the study and agree with the findings in this report. Signed By: Jamaica Schuster MD, 05/19/2018 7:35 AM * [facility] (05/14/2018 3:50 PM) Only the most recent of 3 results within the time period is included. Component Value Ref Range [facility] Surgical Pathology (note) Name AYAN, RAJNI Date of 1940 Hospital Number [id number] Location [address] Medical Surgical SURGICAL PATHOLOGY Collected: 05/14/2018 15:50 Received: 05/14/2018 16:34 PATHOLOGIC DIAGNOSIS LEFT ADRENAL GLAND,, IMAGE GUIDED BIOPSY: - ADRENAL CORTICAL TISSUE IN A BACKGROUND OF DENSE FIBROUS STROMA Comment The core needle biopsies show small focus of adrenal cortical tissue in a background of dense fibrous stroma. The cells are bland and have small nuclei, abundant foamy to eosinophilic cytoplasm. No nuclear atypia, mitosis, necrosis is identified. No overt features of malignancy is present. The findings are most compatible with benign adrenal cortical parenchyma; although a low grade neoplastic process such as an adenoma cannot be ruled out. Clinical correlation is suggested. The concurrent FNA specimen ([id number]) shows atypical plasm cells; however these cells are not present in this biopsy. Pertinent Clinical Information Right renal mass and left adrenal mass Gross Description Specimen Material: Left adrenal biopsy The case is received in one part labeled with the patient's name "RAJNI MCMAHON", medical record number and given accession number [id number], and it is accompanied by a requisition form labeled with the same name and accession number. Received in formalin labeled "LEFT ADRENAL BIOPSY" is a 0.5 x 0.5 x 0.2 cm aggregate of multiple red-eid cores of tissue which are submitted entirely in cassettes A1-A2. JOSE SLATER MD Pathology Resident Microscopic Description Performed. Vane ZarcoBBreanneSBreanne/[id number] Pathology Resident Electronically Signed Out Ruthie Clifton M.D./[id number] Staff Pathologist Specimen Performing Laboratory MISYS * CT CHEST W CONTRAST (05/14/2018 10:16 AM) Specimen Performing Laboratory SMS Impressions IMPRESSION: 1.Right middle lobe 5 mm pulmonary nodule, nonspecific. Given evidence of prior granulomatous disease, noncalcified granuloma possible; however, metastatic lesion not excluded. Follow-up per oncology protocol. 2.Large solid and cystic lesion right kidney partially visualized consistent with presumed renal cell carcinoma on recent MRI. Solid and cystic left adrenal mass suggesting metastatic disease or primary malignancy similar to recent abdominal MRI. 3.Thyroid hypodensities which could be better evaluated with ultrasound. 4.Small left effusion with bibasilar atelectasis. Dictated By: Riley Kimball MD, 05/14/2018 2:08 PM I have reviewed the study and agree with the findings in this report. Signed By: Theo Lewis MD, 05/14/2018 2:15 PM Narrative EXAM: CT Chest WITH contrast INDICATION: Staging COMPARISON: Abdominal MRI on 05/04/2018. Thoracic spine MRI on 05/02/2018. TECHNIQUE: Chest was scanned utilizing a multidetector helical scanner from the lung apex through the level of the adrenal glands after administration of IV contrast. Coronal and sagittal reformations were obtained. Routine protocol was performed. IV CONTRAST: 100 ml Omnipaque 300 RADIATION DOSE: Total DLP: 282 mGy*cm Estimated effective dose: (DLP x 0.014 x size factor) mSv COMPLICATIONS: None FINDINGS: LINES/ TUBES: None. LUNGS AND AIRWAYS: Elevation left hemidiaphragm. Right upper and lower lobes calcified granulomas. Left lower lobe calcified granuloma. Right apical 0.8 cm subpleural bleb. Thickened left oblique fissure. Left basilar segmental atelectasis. A right middle lobe 5 mm pulmonary nodule on (series 2 image 92). Airways are normal. PLEURA: Bilateral trace pleural effusions, worse on the left. No pneumothorax. HEART AND MEDIASTINUM:Asymmetric enlarged left thyroid lobe with multiple bilateral hypodensities. No mediastinal, hilar or axillary lymphadenopathy.The heart is normal in size. There is no pericardial effusion. Moderate atherosclerotic disease of the coronary arteries and thoracic aorta. Left subclavian artery originates from the proximal brachiocephalic trunk. Several subcentimeter mediastinal and hilar lymph nodes some of then are calcified. For example: *A 0.4 cm prevascular lymph node (series 2 image 37). *A 0.4 cm prevascular lymph node (series 2 image 38). *Two left paratracheal lymph nodes, one measuring 0.8 cm and the other 0.5 cm (series 2 image 54). *A 0.5 cm subcarinal calcified lymph node (series 2 image 58). *A 0.6 cm right hilar calcified lymph node (series 2 image 63). UPPER ABDOMEN: A 0.5 cm too small to characterize hypodense lesion in hepatic segment 8 (series 2 image 134) Cholecystectomy. Enlarged irregular heterogeneous left adrenal gland measuring 5 x 6.3 x 5.1 cm (series 2 image 114). Partially visualized right right renal exophytic heterogeneous complex and with solid components measuring 7.6 x 5.9 cm (series 2 image 143), with associated regional mass effect on the right hepatic lobe border, which was better visualized on previous abdominal MRI on 05/04/2018. Unchanged multiple additional cysts throughout both kidneys, these lesions are compatible with simple cysts on previous abdominal MRI. BONES: No acute osseous lesions. Kyphoplasty inthe previously described biopsy-proven multiple pathologic compression fractures with associated height loss at T5, T6, T9, T12, L1 and L2. Findings are better evaluated in previous thoracic spine MRI on 05/02/2018. Healed right rib fractures. SOFT TISSUES: Unremarkable. Procedure Note Interface, Rad/Mammog In - 05/14/2018 2:22 PM CDT EXAM: CT Chest WITH contrast INDICATION: Staging COMPARISON: Abdominal MRI on 05/04/2018. Thoracic spine MRI on 05/02/2018. TECHNIQUE: Chest was scanned utilizing a multidetector helical scanner from the lung apex through the level of the adrenal glands after administration of IV contrast. Coronal and sagittal reformations were obtained. Routine protocol was performed. IV CONTRAST: 100 ml Omnipaque 300 RADIATION DOSE: Total DLP: 282 mGy*cm Estimated effective dose: (DLP x 0.014 x size factor) mSv COMPLICATIONS: None FINDINGS: LINES/ TUBES: None. LUNGS AND AIRWAYS: Elevation left hemidiaphragm. Right upper and lower lobes calcified granulomas. Left lower lobe calcified granuloma. Right apical 0.8 cm subpleural bleb. Thickened left oblique fissure. Left basilar segmental atelectasis. A right middle lobe 5 mm pulmonary nodule on (series 2 image 92). Airways are normal. PLEURA: Bilateral trace pleural effusions, worse on the left. No pneumothorax. HEART AND MEDIASTINUM: Asymmetric enlarged left thyroid lobe with multiple bilateral hypodensities. No mediastinal, hilar or axillary lymphadenopathy. The heart is normal in size. There is no pericardial effusion. Moderate atherosclerotic disease of the coronary arteries and thoracic aorta. Left subclavian artery originates from the proximal brachiocephalic trunk. Several subcentimeter mediastinal and hilar lymph nodes some of then are calcified. For example: * A 0.4 cm prevascular lymph node (series 2 image 37). * A 0.4 cm prevascular lymph node (series 2 image 38). * Two left paratracheal lymph nodes, one measuring 0.8 cm and the other 0.5 cm (series 2 image 54). * A 0.5 cm subcarinal calcified lymph node (series 2 image 58). * A 0.6 cm right hilar calcified lymph node (series 2 image 63). UPPER ABDOMEN: A 0.5 cm too small to characterize hypodense lesion in hepatic segment 8 (series 2 image 134) Cholecystectomy. Enlarged irregular heterogeneous left adrenal gland measuring 5 x 6.3 x 5.1 cm (series 2 image 114). Partially visualized right right renal exophytic heterogeneous complex and with solid components measuring 7.6 x 5.9 cm (series 2 image 143), with associated regional mass effect on the right hepatic lobe border, which was better visualized on previous abdominal MRI on 05/04/2018. Unchanged multiple additional cysts throughout both kidneys, these lesions are compatible with simple cysts on previous abdominal MRI. BONES: No acute osseous lesions. Kyphoplasty in the previously described biopsy-proven multiple pathologic compression fractures with associated height loss at T5, T6, T9, T12, L1 and L2. Findings are better evaluated in previous thoracic spine MRI on 05/02/2018. Healed right rib fractures. SOFT TISSUES: Unremarkable. IMPRESSION IMPRESSION: 1. Right middle lobe 5 mm pulmonary nodule, nonspecific. Given evidence of prior granulomatous disease, noncalcified granuloma possible; however, metastatic lesion not excluded. Follow-up per oncology protocol. 2. Large solid and cystic lesion right kidney partially visualized consistent with presumed renal cell carcinoma on recent MRI. Solid and cystic left adrenal mass suggesting metastatic disease or primary malignancy similar to recent abdominal MRI. 3. Thyroid hypodensities which could be better evaluated with ultrasound. 4. Small left effusion with bibasilar atelectasis. Dictated By: Riley Kimball MD, 05/14/2018 2:08 PM I have reviewed the study and agree with the findings in this report. Signed By: Theo Lewis MD, 05/14/2018 2:15 PM * PT/INR (05/14/2018 4:00 AM) Only the most recent of 2 results within the time period is included. Component Value Ref Range PT 14.6 11.8 - 15.0 Seconds INR 1.1 SUGGESTED THERAPEUTIC RANGES: INR 2.0-3.0 for MODERATE INTENSITY ANTICOAGULATION INR 2.5-3.5 for HIGH INTENSITY ANTICOAGULATION Specimen Performing Laboratory Blood MISYS * CBC/DIFF (05/12/2018 12:03 PM) Only the most recent of 3 results within the time period is included. Component Value Ref Range WBC 5.2 4.5 - 11.0 K/uL RBC 2.97 (L) 4.20 - 5.40 M/uL Hemoglobin 9.3 (L) 12.0 - 16.0 g/dL Hematocrit 30.2 (L) 37.0 - 47.0 % MCV 102 (H) 82 - 92 fL MCH 31.3 27.0 - 32.0 pg MCHC 30.8 (L) 32.0 - 36.0 g/dL RDW 53.6 (H) 36.4 - 46.3 fL Platelet 330 150 - 400 K/uL Mean Platelet Volume 8.8 (L) 9.4 - 12.4 fL Percent NRBC 0.0 Absolute NRBC 0.00 Neutrophil 58.5 34.0 - 70.0 % Lymphocyte 30.6 20.0 - 50.0 % Monocyte 7.8 5.0 - 12.0 % Eosinophil 1.9 0.7 - 5.0 % Basophil 0.6 0.1 - 1.2 % Pct Immat Gran 0.6 (H) 0.0 - 0.5 Neutrophil, Abs 3.06 1.56 - 6.13 K/uL Lymphocyte, Abs 1.60 1.18 - 3.74 K/uL Monocyte, Abs 0.41 (H) 0.24 - 0.36 K/uL Eosinophil, Abs 0.10 0.04 - 0.36 K/uL Basophil, Abs 0.03 0.01 - 0.08 K/uL Absol Immat Gran 0.03 0.00 - 0.03 K/uL Specimen Performing Laboratory Blood MISYS * CHR LEUKEMIA/ LYMPHOMA (05/12/2018 10:30 AM) Component Value Ref Range Specimen Type Comment: (note) BONE MARROW Cells Counted 20 Cells Analyzed 20 Cells Karyotyped 2 GTG Band Resol 400 Cytogenic Result Comment: (note) 46,XX[20] Interpretation Comment: (note) NORMAL FEMALE KARYOTYPE Cytogenetic analysis of unstimulated cultures revealed a female karyotype with an apparently normal GTG banding pattern in all cells analyzed. A normal karyotype does not rule out clonal molecular alterations below the resolution of light microscopy. In some cases additional molecular or FISH testing may be warranted, (e.g., BCR/ABL, PML/KHANH, T and B cell rearrangements, etc.). In addition, indolent clones may have mitotic rates below the level of cytogenetic detection within the standard 20 cell analyses. A FISH panel (test #[id number]) may be effectively used in low mitotic multiple myeloma, for example, to detect high incidence, prognosis-related alterations. . A test option for a whole genome SNP microarray is also available (test #[id number]) that can resolve genomic imbalance at a level of sensitivity over 200 times cytogenetic resolution. This testing can be performed from the current remaining sample, if available. Call x [phone]. Director Review: Comment: (note) Claire Hernandez, PhD Specimen Performing Laboratory Marrow MISYS * XRAY BONE/ SKELETAL SURVEY COMPLETE (05/11/2018 12:04 PM) Specimen Performing Laboratory SMS Impressions IMPRESSION: 1.Severe bone demineralization without discrete myelomatous lesion. 2.Status post kyphoplasty of T9, T12, L1 and L2. Dictated By: Apple Tirado MD, 05/11/2018 1:43 PM I have reviewed the study and agree with the findings in this report. Signed By: Sal Dillard MD, 05/11/2018 1:51 PM Narrative XRAY BONE/ SKELETAL SURVEY COMPLETE: 05/11/2018 12:05 PM PROCEDURE 16 views of the axial and appendicular skeleton. CLINICAL INFORMATION Plasma cell dyscrasia COMPARISON Chest and spine radiographs 04/30/2008 FINDINGS Lytic lesions: No discrete lytic lesion. Severe bone demineralization. Alignment: The bones are in normal anatomic alignment. Multiple compression abnormalities status post kyphoplasty T9, T12, L1, and L2. Mineralization:Diffuse demineralization Joints: Normal. Calcification in the subacromial region of the right and left shoulders. Suggestive of calcific tendinopathy. Degenerative disc disease: Multilevel degenerative changes of thoracolumbar spine. Other findings: Right upper quadrant cholecystectomy clips. Multiple phleboliths. Procedure Note Interface, Rad/Mammog In - 05/11/2018 1:56 PM CDT XRAY BONE/ SKELETAL SURVEY COMPLETE: 05/11/2018 12:05 PM PROCEDURE 16 views of the axial and appendicular skeleton. CLINICAL INFORMATION Plasma cell dyscrasia COMPARISON Chest and spine radiographs 04/30/2008 FINDINGS Lytic lesions: No discrete lytic lesion. Severe bone demineralization. Alignment: The bones are in normal anatomic alignment. Multiple compression abnormalities status post kyphoplasty T9, T12, L1, and L2. Mineralization: Diffuse demineralization Joints: Normal. Calcification in the subacromial region of the right and left shoulders. Suggestive of calcific tendinopathy. Degenerative disc disease: Multilevel degenerative changes of thoracolumbar spine. Other findings: Right upper quadrant cholecystectomy clips. Multiple phleboliths. IMPRESSION IMPRESSION: 1. Severe bone demineralization without discrete myelomatous lesion. 2. Status post kyphoplasty of T9, T12, L1 and L2. Dictated By: Apple Tirado MD, 05/11/2018 1:43 PM I have reviewed the study and agree with the findings in this report. Signed By: Sal Dillard MD, 05/11/2018 1:51 PM * IMMUNOGLOBULINS (05/11/2018 4:55 AM) Component Value Ref Range IgG 219.2 (L) 635 - 1,741 mg/dL IgA >7000.0 (H) 66 - 433 mg/dL IgM <20.0 (L) 45 - 281 mg/dL Specimen Performing Laboratory MISYS * BETA 2-MICROGLOBULIN,URINE (05/10/2018 5:03 PM) Component Value Ref Range Beta2 Microglob,[place] 15522 Reference range: 0 to 300 Unit: ug/L (note) Results verified by repeat testing (H) Specimen Performing Laboratory Urine MISYS * JOHNNY, UR (05/10/2018 8:52 AM) Component Value Ref Range JOHNNY, Ur Electronically signed out by: Gale Perkins,PhD./[id number] (note) Interpretation: There is a major monoclonal peak in the gamma region, identified by immunofixation as lambda Bence Lozada protein 2.43 g/day). There is a barely visible monoclonal peak in the gamma region, which corresponds to the monoclonal protein in the serum. This peak has been identified as IgA lambda. JOHNNY, Ur Volume 1,025 mL Specimen Performing Laboratory MISYS * ELECTROPH, 24HR UR (05/10/2018 8:52 AM) Component Value Ref Range Volume 1,025 mL Protein, Ur 4.70 g/day Comment Electronically signed out by: Gale Perkins,PhD./[id number] (note) Interpretation: There is a major monoclonal peak in the gamma region, identified by immunofixation as lambda Bence Lozada protein (2.43 g/day). There is a barely visible monoclonal peak in the gamma region, which corresponds to the monoclonal protein in the serum. This peak has been identified as IgA lambda. Specimen Performing Laboratory Urine MISYS * T PROT, TIMED UR (05/10/2018 8:52 AM) Component Value Ref Range T Prot (Period) 24 hrs T Prot (Volume) 1,025 mL T Prot, Ur 4.6 g/L T Prot(Calculated) 4,715 mg/24 Hr Specimen Performing Laboratory MISYS * T PROTEIN (05/09/2018 11:46 AM) Component Value Ref Range T Protein 7.2 6.0 - 8.3 g/dL Specimen Performing Laboratory MISYS * JOHNNY (05/09/2018 11:46 AM) Component Value Ref Range JOHNNY Electronically signed out by: Gale Perkins,PhD./[id number] (note) Interpretation: There are 2 monoclonal peaks in the gamma region. These have been identified by immunofixation as IgA lambda, at a concentration of 3.64 g/dl. Specimen Performing Laboratory MISYS * ELECTROPH, BLD (05/09/2018 11:46 AM) Component Value Ref Range Protein 7.2 g/dL Comment Electronically signed out by: Gale Perkins,PhD./[id number] (note) Interpretation: There are 2 monoclonal peaks in the gamma region. These have been identified by immunofixation as IgA lambda, at a concentration of 3.64 g/dl. Specimen Performing Laboratory MISYS * METANEPH FRAC 24U (05/08/2018 4:30 PM) Component Value Ref Range Normetan Ur 360 Reference range: Undefined Unit: ug/L Normetan 24U 360 Reference range: 82 to 500 Unit: ug/24 hr (note) (Hypertensive) >17 years 11 months: 110 - 1050 Metanephrine U 71 Reference range: Undefined Unit: ug/L Metanephrine 24U 71 Reference range: 45 to 290 Unit: ug/24 hr (note) (Hypertensive) >17 years 11 months: 35 - 460 URINE VOLUME 1,000 VOLUME UNITS MLS Specimen Performing Laboratory Urine MISYS * CORTISOL, TOTAL (05/08/2018 4:15 AM) Component Value Ref Range Cortisol, Total 5.9 3.44 - 22.45 mcg/dL Specimen Performing Laboratory Blood MISYS * MRI KIDNEY W AND W/O CONTRAST (05/04/2018 4:54 PM) Specimen Performing Laboratory SMS Impressions IMPRESSION: Evaluation is limited by motion artifacts. 1.Partially exophytic cystic lesion arising from the interpolar region of the right kidney with enhancing solid components and septations, highly suspicious for renal cell carcinoma (Bosniak IV). 2.Heterogeneous left adrenal mass with irregular enhancement. Evaluation is partially limited by motion artifacts and differential diagnosis includes metastatic disease versus primary adrenal neoplasm. Consider adrenal protocol CT (with and without contrast) for further evaluation. 3.Multiple additional simple renal cysts. 4.Multiple vertebral compression fractures of the thoracic and lumbar spine, further evaluated on recent thoracic spine MRI. Dictated By: Grey Byers MD, 05/05/2018 8:48 AM I have reviewed the study and agree with the findings in this report. Signed By: Med Chan MD, 05/05/2018 9:54 AM Narrative EXAM: MR Abdomen WITHOUT and WITH Contrast INDICATION: renal mass COMPARISON: Renal ultrasound from 04/28/2018 TECHNIQUE: Multiplanar and multisequence imaging was performed of the abdomen without and with contrast. T1-weighted, T2-weighted images, T1-weighted in and [id number], and Diffusion weighted images. Dynamic, post gadolinium T1-weighted spoiled gradient echo scans. IV Contrast: 11 mL of Dotarem gadolinium Oral Contrast: None Medications: None COMPLICATIONS: None FINDINGS: Evaluation is markedly limited by motion artifacts. LOWER THORAX: Small to moderate left pleural effusion with associated left lower lobe compressive atelectasis. HEPATOBILIARY: Liver size and parenchymal signal intensity are within normal limits.Subcentimeter T2 hyperintense nonenhancing cyst within hepatic segment 8 (series 3 image 37, series 5 image 21). No biliary ductal dilation. GALLBLADDER: Not visualized likely surgically absent. SPLEEN: No splenomegaly. PANCREAS: No focal masses or ductal dilatation. ADRENALS: Right adrenal gland is unremarkable. T1/T2 heterogeneous left adrenal mass with irregular heterogeneous enhancement measuring approximately 4.7 x 6.1 x 4.5 cm(SI x AP x Trans). No evidence of restricted diffusion and evaluation of intracellular lipid is limited by motion artifacts (series 4 image 14, series 5 image 14, series 8 image 328). KIDNEYS/URETERS: Kidneys enhance symmetrically.No hydronephrosis. Partially exophytic T2 hyperintense cystic lesion arising from the interpolar region of the right kidney measuring 8.2 x 7.9 x 6.1 cm and abutting the right hepatic lobe (series 4 image 30, series 5 image 25, series 8 image 350). Lesion demonstrates enhancing solid components and irregular septations, largest measuring up to 1.4 cm (series 5 image 23). Multiple additional smaller T1 hypointense, T2 hyperintense nonenhancing cyst throughout both kidneys. No associated solid components or septations. These lesions are compatible with simple cysts and largest measures up to 4.1 cm at the right superior renal pole (series 5 image 15). Collecting System: Patent Renal Artery: Patent Renal Vein: Patent IVC: Patent GI TRACT: No abnormal distention, wall thickening, or evidence of bowel obstruction in the visualized portions of the small bowel and colon. LYMPH NODES: No lymphadenopathy given limitations of motion artifacts. VESSELS: No aneurysmal dilatation or ectasia of the abdominal aorta. IVC, portal, splenic, superior mesenteric, and renal veins are patent. PERITONEUM / RETROPERITONEUM: No free fluid. BONES: Multiple compression fracture deformities of the thoracic and lumbar spine with associated degenerative disc changes, further described on recent thoracic spine MRI. SOFT TISSUES: Unremarkable. Procedure Note Interface, Rad/Mammog In - 05/05/2018 9:59 AM CDT EXAM: MR Abdomen WITHOUT and WITH Contrast INDICATION: renal mass COMPARISON: Renal ultrasound from 04/28/2018 TECHNIQUE: Multiplanar and multisequence imaging was performed of the abdomen without and with contrast. T1-weighted, T2-weighted images, T1-weighted in and [id number], and Diffusion weighted images. Dynamic, post gadolinium T1-weighted spoiled gradient echo scans. IV Contrast: 11 mL of Dotarem gadolinium Oral Contrast: None Medications: None COMPLICATIONS: None FINDINGS: Evaluation is markedly limited by motion artifacts. LOWER THORAX: Small to moderate left pleural effusion with associated left lower lobe compressive atelectasis. HEPATOBILIARY: Liver size and parenchymal signal intensity are within normal limits. Subcentimeter T2 hyperintense nonenhancing cyst within hepatic segment 8 (series 3 image 37, series 5 image 21). No biliary ductal dilation. GALLBLADDER: Not visualized likely surgically absent. SPLEEN: No splenomegaly. PANCREAS: No focal masses or ductal dilatation. ADRENALS: Right adrenal gland is unremarkable. T1/T2 heterogeneous left adrenal mass with irregular heterogeneous enhancement measuring approximately 4.7 x 6.1 x 4.5 cm (SI x AP x Trans). No evidence of restricted diffusion and evaluation of intracellular lipid is limited by motion artifacts (series 4 image 14, series 5 image 14, series 8 image 328). KIDNEYS/URETERS: Kidneys enhance symmetrically. No hydronephrosis. Partially exophytic T2 hyperintense cystic lesion arising from the interpolar region of the right kidney measuring 8.2 x 7.9 x 6.1 cm and abutting the right hepatic lobe (series 4 image 30, series 5 image 25, series 8 image 350). Lesion demonstrates enhancing solid components and irregular septations, largest measuring up to 1.4 cm (series 5 image 23). Multiple additional smaller T1 hypointense, T2 hyperintense nonenhancing cyst throughout both kidneys. No associated solid components or septations. These lesions are compatible with simple cysts and largest measures up to 4.1 cm at the right superior renal pole (series 5 image 15). Collecting System: Patent Renal Artery: Patent Renal Vein: Patent IVC: Patent GI TRACT: No abnormal distention, wall thickening, or evidence of bowel obstruction in the visualized portions of the small bowel and colon. LYMPH NODES: No lymphadenopathy given limitations of motion artifacts. VESSELS: No aneurysmal dilatation or ectasia of the abdominal aorta. IVC, portal, splenic, superior mesenteric, and renal veins are patent. PERITONEUM / RETROPERITONEUM: No free fluid. BONES: Multiple compression fracture deformities of the thoracic and lumbar spine with associated degenerative disc changes, further described on recent thoracic spine MRI. SOFT TISSUES: Unremarkable. IMPRESSION IMPRESSION: Evaluation is limited by motion artifacts. 1. Partially exophytic cystic lesion arising from the interpolar region of the right kidney with enhancing solid components and septations, highly suspicious for renal cell carcinoma (Bosniak IV). 2. Heterogeneous left adrenal mass with irregular enhancement. Evaluation is partially limited by motion artifacts and differential diagnosis includes metastatic disease versus primary adrenal neoplasm. Consider adrenal protocol CT (with and without contrast) for further evaluation. 3. Multiple additional simple renal cysts. 4. Multiple vertebral compression fractures of the thoracic and lumbar spine, further evaluated on recent thoracic spine MRI. Dictated By: Grey Byers MD, 05/05/2018 8:48 AM I have reviewed the study and agree with the findings in this report. Signed By: Med Chan MD, 05/05/2018 9:54 AM * GLUCOSE POC (05/02/2018 7:54 PM) Only the most recent of 3 results within the time period is included. Component Value Ref Range Glucose POC 117 (H) 74 - 106 mg/dL Specimen Performing Laboratory MISYS * MRI THORACIC SPINE W/O CONTRAST (05/02/2018 4:50 PM) Specimen Performing Laboratory SMS Impressions IMPRESSION: 1.Multiple osteoporotic compression fractures with associated height loss and retropulsion as described. Marrow edema at T5, T6, T9, T12, L1, L2 and L3 compatible with acute to subacute fractures. 2.Multilevel canal stenosis stenosis due to disc osteophyte complexes and mild endplate retropulsion; severe at L3-L4 and moderate at L1-L2 and at L2-L3. 3.Multilevel foraminal stenosis as described. 4.Partially imaged right renal mass and additional mass at the left superior pole of the left kidney which may arise from the kidney or left adrenal gland concerning for malignancy. 5.Left pleural effusion with left lobe consolidation or atelectasis. Cannot exclude left lung malignancy on the basis of this exam. Recommend chest, abdomen and pelvis CT with IV contrast to further evaluate. Dictated By: Bjorn Ray MD, 05/03/2018 2:33 PM I have reviewed the study and agree with the findings in this report. Signed By: Rudi Nunes MD, 05/03/2018 5:53 PM Narrative Exam: Thoracic spine MRI without with IV contrast History: Thoracic compression fracture, pre-kyphoplasty planning Comparison: Thoracic spine x-ray 04/29/2018 Technique: Axial, coronal and sagittal T2, axial and sagittal T1, sagittal inversion recovery. DISCUSSION: Alignment: Normal thoracic kyphosis. Thoracic curvature convex to the right Soft tissues: No signal abnormalities Spinal cord: Normal in size and signal intensity. The tip of the conus terminates at L1-L2. Vertebrae: *T5 anterior wedge compression fracture, approximately 30% height loss and edema within the T5 vertebral body, greatest along the inferior endplate. Minimal retropulsion of the inferior end plate without significant canal stenosis. *T6 superior endplate compression fracture with 25% height loss and marrow edema within the vertebral body, greatest along the superior endplate. Minimal retropulsion of the superior endplate without significant canal stenosis. *T9 compression fracture with vertebral plana, edema throughout the vertebral body and approximately 3.5 mm retropulsion superior endplate without significant canal stenosis. *T12 compression fracture with approximately 50% height loss, edema throughout the vertebral body and fluid cleft along the inferior endplate. Minimal retropulsion of the superior T12 endplate. *L1 compression fracture with superior and inferior endplate deformities and mild edema predominantly along the inferior endplate anteriorly. Minimal retropulsion of the T12 and L1 endplates. *L2 compression fracture with depression of the superior and inferior endplates, approximately 50% height loss and edema throughout the L2 vertebral body with small fluid cleft along the superior endplate. Mild retropulsion of the endplates with disc osteophyte complex result in moderate canal stenosis at L2-L3. *Superior L3 endplate compression fracture results in up to 60% height loss on the left. No significant marrow edema to indicate acute fracture. *Partially imaged superior L4 endplate fracture with associated marrow edema Fractures appear to be osteoporotic in etiology. There is no significant involvement of the posterior elements or associated soft tissue mass identified. Degenerative changes: Discs: Mild multilevel thoracic disc degeneration. Canal: Multilevel canal stenosis due to retropulsion and disc osteophyte complexes; mild at T8-T9, T11-T12 and T12-L1 and moderate at L1-L2 and at L2-L3. Moderate to severe canal stenosis at the incompletely imaged L3-L4 level where there is a disc osteophyte complex, thickened ligamentum flavum and facet arthrosis. Foramina: Retropulsion, disc ossify complexes and multilevel facet arthrosis result in multilevel foraminal stenosis; moderate left and mild right at T8-T9 and at T9-T10, moderate right at T12-L1 and at L2-L3 and mild right at L2-L3. Additional findings: Multiple renal cysts with > 7.5 cm complex T2 hyperintense right renal lesion and complex T2 hyperintense lesion which measures at least 6.0 cm which may arise from the left superior renal pole or possibly adrenal gland. Partially imaged left pleural effusion with overlying atelectasis or consolidation. Cannot further evaluate on this exam. Procedure Note Interface, Rad/Mammog In - 05/03/2018 5:58 PM CDT Exam: Thoracic spine MRI without with IV contrast History: Thoracic compression fracture, pre-kyphoplasty planning Comparison: Thoracic spine x-ray 04/29/2018 Technique: Axial, coronal and sagittal T2, axial and sagittal T1, sagittal inversion recovery. DISCUSSION: Alignment: Normal thoracic kyphosis. Thoracic curvature convex to the right Soft tissues: No signal abnormalities Spinal cord: Normal in size and signal intensity. The tip of the conus terminates at L1-L2. Vertebrae: * T5 anterior wedge compression fracture, approximately 30% height loss and edema within the T5 vertebral body, greatest along the inferior endplate. Minimal retropulsion of the inferior end plate without significant canal stenosis. * T6 superior endplate compression fracture with 25% height loss and marrow edema within the vertebral body, greatest along the superior endplate. Minimal retropulsion of the superior endplate without significant canal stenosis. * T9 compression fracture with vertebral plana, edema throughout the vertebral body and approximately 3.5 mm retropulsion superior endplate without significant canal stenosis. * T12 compression fracture with approximately 50% height loss, edema throughout the vertebral body and fluid cleft along the inferior endplate. Minimal retropulsion of the superior T12 endplate. * L1 compression fracture with superior and inferior endplate deformities and mild edema predominantly along the inferior endplate anteriorly. Minimal retropulsion of the T12 and L1 endplates. * L2 compression fracture with depression of the superior and inferior endplates, approximately 50% height loss and edema throughout the L2 vertebral body with small fluid cleft along the superior endplate. Mild retropulsion of the endplates with disc osteophyte complex result in moderate canal stenosis at L2-L3. * Superior L3 endplate compression fracture results in up to 60% height loss on the left. No significant marrow edema to indicate acute fracture. * Partially imaged superior L4 endplate fracture with associated marrow edema Fractures appear to be osteoporotic in etiology. There is no significant involvement of the posterior elements or associated soft tissue mass identified. Degenerative changes: Discs: Mild multilevel thoracic disc degeneration. Canal: Multilevel canal stenosis due to retropulsion and disc osteophyte complexes; mild at T8-T9, T11-T12 and T12-L1 and moderate at L1-L2 and at L2-L3. Moderate to severe canal stenosis at the incompletely imaged L3-L4 level where there is a disc osteophyte complex, thickened ligamentum flavum and facet arthrosis. Foramina: Retropulsion, disc ossify complexes and multilevel facet arthrosis result in multilevel foraminal stenosis; moderate left and mild right at T8-T9 and at T9-T10, moderate right at T12-L1 and at L2-L3 and mild right at L2-L3. Additional findings: Multiple renal cysts with > 7.5 cm complex T2 hyperintense right renal lesion and complex T2 hyperintense lesion which measures at least 6.0 cm which may arise from the left superior renal pole or possibly adrenal gland. Partially imaged left pleural effusion with overlying atelectasis or consolidation. Cannot further evaluate on this exam. IMPRESSION IMPRESSION: 1. Multiple osteoporotic compression fractures with associated height loss and retropulsion as described. Marrow edema at T5, T6, T9, T12, L1, L2 and L3 compatible with acute to subacute fractures. 2. Multilevel canal stenosis stenosis due to disc osteophyte complexes and mild endplate retropulsion; severe at L3-L4 and moderate at L1-L2 and at L2-L3. 3. Multilevel foraminal stenosis as described. 4. Partially imaged right renal mass and additional mass at the left superior pole of the left kidney which may arise from the kidney or left adrenal gland concerning for malignancy. 5. Left pleural effusion with left lobe consolidation or atelectasis. Cannot exclude left lung malignancy on the basis of this exam. Recommend chest, abdomen and pelvis CT with IV contrast to further evaluate. Dictated By: Bjorn Ray MD, 05/03/2018 2:33 PM I have reviewed the study and agree with the findings in this report. Signed By: Rudi Nunes MD, 05/03/2018 5:53 PM * CT HEAD W/O CONTRAST (05/01/2018 4:22 PM) Specimen Performing Laboratory [facility] Impressions IMPRESSION: No acute abnormalities. Chronic findings: Generalized age-related cerebral volume loss. Mild supratentorial white matter microvascular ischemic changes. Signed By: Pauline Powers MD, 05/01/2018 11:39 PM Narrative Exam : Head CT without contrast History: psychosis, eval for any structural lesions Comparison studies: None. Technique: Axial scans were obtained from skull base to the vertex. Coronal and sagittal reconstructions obtained from the axial data. IV Contrast: None Complications: None Radiation Dose: Total DLP: 1226 mGy*cm. Estimated Effective Dose: DLP x 0.0021 mSv FINDINGS: Suboptimal evaluation due to motion artifacts. Scalp/Skull: Punctate radiopaque densities in left frontoparietal scalp may represent calcification or debris. No lytic or sclerotic calvarial lesion.. Brain sulci: Prominent.. Ventricles: Normal in size and configuration.No hydrocephalus. Extra-axial spaces: No masses or fluid collections. Parenchyma: Nonspecific few, scattered supratentorial white matter hypodensities are likely related to small vessel ischemic changes. No masses, hemorrhage or acute or chronic cortical insults Dural sinuses:No abnormal densities. Sellar/Suprasellar region: Intact. Skull base and Craniocervical junction: Intact . Incidental finding: Small posterior interhemispheric lipoma. Procedure Note Interface, Rad/Mammog In - 05/01/2018 11:45 PM CDT Exam : Head CT without contrast History: psychosis, eval for any structural lesions Comparison studies: None. Technique: Axial scans were obtained from skull base to the vertex. Coronal and sagittal reconstructions obtained from the axial data. IV Contrast: None Complications: None Radiation Dose: Total DLP: 1226 mGy*cm. Estimated Effective Dose: DLP x 0.0021 mSv FINDINGS: Suboptimal evaluation due to motion artifacts. Scalp/Skull: Punctate radiopaque densities in left frontoparietal scalp may represent calcification or debris. No lytic or sclerotic calvarial lesion.. Brain sulci: Prominent.. Ventricles: Normal in size and configuration.No hydrocephalus. Extra-axial spaces: No masses or fluid collections. Parenchyma: Nonspecific few, scattered supratentorial white matter hypodensities are likely related to small vessel ischemic changes. No masses, hemorrhage or acute or chronic cortical insults Dural sinuses: No abnormal densities. Sellar/Suprasellar region: Intact. Skull base and Craniocervical junction: Intact . Incidental finding: Small posterior interhemispheric lipoma. IMPRESSION IMPRESSION: No acute abnormalities. Chronic findings: Generalized age-related cerebral volume loss. Mild supratentorial white matter microvascular ischemic changes. Signed By: Pauline Powers MD, 05/01/2018 11:39 PM * XRAY SPINE LUMBOSACRAL AP-LAT (04/30/2018 12:35 PM) Specimen Performing Laboratory [facility] Impressions IMPRESSION: 1.Age-indeterminate compression fractures of L1, L2, and L3. 2.Diffuse demineralization Dictated By: Patience Wooten DO, 04/30/2018 4:25 PM I have reviewed the study and agree with the findings in this report. Signed By: Sal Dillard MD, 05/01/2018 9:05 AM Narrative x-ray lumbar (3 views) HISTORY:back pain, compression fracture COMPARISON: None DISCUSSION: Exam is limited due to soft tissue attenuation and multiple overlying artifacts There are five non-rib bearing lumbar vertebral bodies. Multilevel disc space narrowing. Multilevel compression fractures at L1, L2, and L3. Most severe at L1 with greater than 75% height loss. Atherosclerotic vessels. Atherosclerotic vessels. Diffuse demineralization. Osseous structures are partially obscured by overlying stool and bowel gas. Procedure Note Interface, Rad/Mammog In - 05/01/2018 9:10 AM CDT x-ray lumbar (3 views) HISTORY: back pain, compression fracture COMPARISON: None DISCUSSION: Exam is limited due to soft tissue attenuation and multiple overlying artifacts There are five non-rib bearing lumbar vertebral bodies. Multilevel disc space narrowing. Multilevel compression fractures at L1, L2, and L3. Most severe at L1 with greater than 75% height loss. Atherosclerotic vessels. Atherosclerotic vessels. Diffuse demineralization. Osseous structures are partially obscured by overlying stool and bowel gas. IMPRESSION IMPRESSION: 1. Age-indeterminate compression fractures of L1, L2, and L3. 2. Diffuse demineralization Dictated By: Patience Wooten DO, 04/30/2018 4:25 PM I have reviewed the study and agree with the findings in this report. Signed By: Sal Dillard MD, 05/01/2018 9:05 AM * XRAY SPINE THORACIC 2 VIEWS (04/30/2018 12:35 PM) Specimen Performing Laboratory SMS Impressions IMPRESSION: 1.No acute osseous abnormality. 2.Compression fractures noted at T7, T10, L2. 3.Diffuse demineralization Dictated By: Patience Wooten DO, 04/30/2018 2:45 PM I have reviewed the study and agree with the findings in this report. Signed By: Alphonso Correa DO, 04/30/2018 4:13 PM Narrative AP and Lateral views of the thoracolumbar spine. X-ray thoracic (2 views), x-ray lumbar (3 views) HISTORY:back pain, compression fracture COMPARISON: None DISCUSSION: Exam is limited due to soft tissue attenuation and multiple overlying artifacts Thoracic kyphosis. There are five non-rib bearing lumbar vertebral bodies. The disc spaces appear well preserved. Multilevel compression deformities. Compression fractures noted at T7, T10, L2. Atherosclerotic vessels. Atherosclerotic vessels. Diffuse demineralization. Osseous structures are partially obscured by overlying stool and bowel gas. Procedure Note Interface, Rad/Mammog In - 04/30/2018 4:18 PM CDT AP and Lateral views of the thoracolumbar spine. X-ray thoracic (2 views), x-ray lumbar (3 views) HISTORY: back pain, compression fracture COMPARISON: None DISCUSSION: Exam is limited due to soft tissue attenuation and multiple overlying artifacts Thoracic kyphosis. There are five non-rib bearing lumbar vertebral bodies. The disc spaces appear well preserved. Multilevel compression deformities. Compression fractures noted at T7, T10, L2. Atherosclerotic vessels. Atherosclerotic vessels. Diffuse demineralization. Osseous structures are partially obscured by overlying stool and bowel gas. IMPRESSION IMPRESSION: 1. No acute osseous abnormality. 2. Compression fractures noted at T7, T10, L2. 3. Diffuse demineralization Dictated By: Patience Wooten DO, 04/30/2018 2:45 PM I have reviewed the study and agree with the findings in this report. Signed By: Alphonso Correa DO, 04/30/2018 4:13 PM * TRANSTHORACIC ECHO (TTE) (04/29/2018 8:06 AM) Component Value Ref Range TRANSTHORACIC ECHO (TTE) Transthoracic Echo Report RAJNI MCMAHON Age: 78 Gender: F : 1940 Exam Date: 04/29/2018 08:06 Exam Location: [facility] Echo Ordering Phys: LEIGHTON JONES Referring Phys: Reading Phys: Alexus Nick Fellow Phys: Fellow Phys: Spinning Supervisor: Aiden Jackson Reason For Exam: Indications: Dyspnea, unspecified ICD-9 Codes: R06.00 Exam Type: TRANSTHORACIC ECHO (TTE) Procedure CPT: 39897 Addtional CPT: Ht (in): 61 BSA: 1.49 HR: 64 Rhythm: Sinus rhythm Wt (lb): 113 BP: 104 / 46 Technical Quality: Technically difficult study History: sob MEASUREMENTS (Male / Female) Normal Values 2D ECHO LV Diastolic Diameter PLAX 3.9 cm 4.2 - 5.9 / 3.9 - 5.3 cm LV Systolic Diameter PLAX 2.2 cm 2.1 - 4.0 cm LV Fractional Shortening PLAX 45 % 25 - 46 % IVS Diastolic Thickness 1.2 cm LVPW Diastolic Thickness 1 cm LV Relative Wall Thickness 0.57 LVOT Diameter 2.2 cm Aortic Root Diameter 3.4 cm LV Diastolic Volume MOD 4C 84 cm LV Systolic Volume MOD 4C 19.5 cm LV Ejection Fraction MOD 4C 76.8 % LV Stroke Volume MOD 4C 64.6 cm LV Cardiac Output MOD 4C 4132 cm /min LV Cardiac Index MOD 4C 2776 cm /min m LA Volume 57 cm 18 - 58 / 22 - 52 cm LA Volume Index 38.3 cm /m 16 - 28 cm /m RV Diastolic Basal Diameter 3.4 cm 2.0 - 2.8 cm RA Area 14.8 cm DOPPLER AV Peak Velocity 107 cm/s AV Peak Gradient 4.6 mmHg Aortic R to R Interval 0.98 s LVOT Peak Velocity 92.1 cm/s LVOT Peak Gradient 3.4 mmHg LVOT Mean Velocity 58.6 cm/s LVOT Mean Gradient 1.4 mmHg LVOT Velocity Time Integral 22.1 cm LVOT Stroke Volume 83.3 cm LVOT Cardiac Output 5.1 liters/min LVOT Cardiac Index 3.4 l/min m AV Area Cont Eq pk 3.3 cm Mitral E Point Velocity 81.9 cm/s Mitral A Point Velocity 107 cm/s Mitral E to A Ratio 0.76 LV E' Lateral Velocity 6.9 cm/s Mitral E to LV E' Lateral Ratio 11.8 LV E' Septal Velocity 4.2 cm/s Mitral E to LV E' Septal Ratio 19.4 FINDINGS Left Ventricle Grossly normal left ventricular size. Normal left ventricular wall thickness. Normal left ventricular systolic function. Left ventricular ejection fraction is 65%. Ultrasound contrast was used for LV opacification. Based on the parasternal short axis views, there appears to be an area of hypokinesis in the inferior wall. Other normal segments are dynamic and augment the EF. The distal LV apex is not well visualized due to foreshortened images. Impaired relaxation, increased LV filling pressures. Right Ventricle Normal right ventricular function. Right ventricle not well visualized to assess RV size. Right Atrium Grossly normal right atrial size. Left Atrium Moderate left atrial dilatation. IAS Mitral Valve Mitral leaflets mildly thickened. Aortic Valve There is mild thickening of the aortic valve. The aortic valve is trileaflet and opens well. Tricuspid Valve Grossly normal tricuspid valve. Trace tricuspid regurgitation. Insufficient TR jet to estimate pulmonary artery systolic pressure. Pulmonic Valve Pulmonic valve not well visualized. Pericardium Echo free space anterior to the right ventricle likely represents a fat pad. Aorta Normal size aortic root. IVC RA pressure is 0-5 mmHg. CONCLUSIONS No prior study for comparison. 1. Grossly normal left ventricular size. Normal left ventricular wall thickness. Normal left ventricular systolic function. Left ventricular ejection fraction is 65%. Ultrasound contrast was used for LV opacification. Based on the parasternal short axis views, there appears to be an area of hypokinesis in the inferior wall. Other normal segments are dynamic and augment the EF. The distal LV apex is not well visualized due to foreshortened images. Impaired relaxation, increased LV filling pressures. 2. Normal right ventricular function. Right ventricle not well visualized to assess RV size. 3. Grossly normal right atrial size. Moderate left atrial dilatation. 4. Insufficient TR jet to estimate pulmonary artery systolic pressure. RA pressure is 0-5 mmHg. Alexus Nick MD (Electronically Signed) Final Date: 29 April 2018 12:43 2D ECHO LV Diastolic Diameter PLAX 3.9 cm 4.2 - 5.9 / 3.9 - 5.3 cm LV Systolic Diameter PLAX 2.2 cm 2.1 - 4.0 cm LV Fractional Shortening PLAX 45 % 25 - 46 % IVS Diastolic Thickness 1.2 cm LVPW Diastolic Thickness 1 cm LV Relative Wall Thickness 0.57 LVOT Diameter 2.2 cm Aortic Root Diameter 3.4 cm LV Diastolic Volume MOD 4C 84 cm LV Systolic Volume MOD 4C 19.5 cm LV Ejection Fraction MOD 4C 76.8 % LV Stroke Volume MOD 4C 64.6 cm LV Cardiac Output MOD 4C 4132 cm /min LV Cardiac Index MOD 4C 2776 cm /min m LA Volume 57 cm 18 - 58 / 22 - 52 cm LA Volume Index 38.3 cm /m 16 - 28 cm /m RV Diastolic Basal Diameter 3.4 cm 2.0 - 2.8 cm RA Area 14.8 cm DOPPLER AV Peak Velocity 107 cm/s AV Peak Gradient 4.6 mmHg Aortic R to R Interval 0.98 s LVOT Peak Velocity 92.1 cm/s LVOT Peak Gradient 3.4 mmHg LVOT Mean Velocity 58.6 cm/s LVOT Mean Gradient 1.4 mmHg LVOT Velocity Time Integral 22.1 cm LVOT Stroke Volume 83.3 cm LVOT Cardiac Output 5.1 liters/min LVOT Cardiac Index 3.4 l/min m AV Area Cont Eq pk 3.3 cm Mitral E Point Velocity 81.9 cm/s Mitral A Point Velocity 107 cm/s Mitral E to A Ratio 0.76 LV E' Lateral Velocity 6.9 cm/s Mitral E to LV E' Lateral Ratio 11.8 LV E' Septal Velocity 4.2 cm/s Mitral E to LV E' Septal Ratio 19.4 Specimen Performing Laboratory SMS * VIT D, 25-HYDROXY (04/29/2018 4:07 AM) Component Value Ref Range Vit D, 25-Hydroxy 21.4 (L) 30 - 100 ng/mL Comment: Vitamin D deficiency has been defined by the [place] of [employer] and End[employer] Society guideline as a level of serum 25-OH Vitamin D less than 20 ng/mL. The Endocrine Society further defines Vitamin D insufficiency as a level between 21 and 29 ng/mL and sufficiency as a level between 30 and 100 ng/mL. Specimen Performing Laboratory [facility] * CALCITROL, VITD1,25 (04/29/2018 4:07 AM) Component Value Ref Range Calcitrol 13.9 Reference range: 19.9 to 79.3 Unit: pg/mL (L) Specimen Performing Laboratory [facility] * INTACT PTH (04/29/2018 4:07 AM) Component Value Ref Range Intact PTH 39.20 8.7 - 77.1 pg/mL Specimen Performing Laboratory [facility] * TROPONIN I (04/29/2018 4:07 AM) Only the most recent of 3 results within the time period is included. Component Value Ref Range Troponin I 0.26 (H) <0.04 ng/mL Specimen Performing Laboratory Blood [facility] * U/S RENAL (04/28/2018 1:20 PM) Specimen Performing Laboratory SMS Impressions IMPRESSION: Approximately 9.2 cm complex mass with cystic spaces, extending from the right renal inferior pole, concerning for renal cell carcinoma. Recommend further evaluation with renal mass protocol CT or MRI. Increased renal parenchymal echogenicity, suggestive of medical renal disease. Signed By: Renato Garnett MD, 04/28/2018 1:37 PM Narrative EXAM: Renal Ultrasound INDICATION: darien, eval for hydro COMPARISON: None TECHNIQUE: Transverse and longitudinal images of the kidneys and bladder were obtained. FINDINGS: Right Kidney: Size: 6.8 cm Echogenicity: Increased Parenchymal thickness: Normal Collecting system: No hydronephrosis Stones: None Cyst/Mass: 7.8 x 4.6 x 9.2 cm complex mass extending from the inferolateral right kidney Left Kidney: Size: 9.1 cm Echogenicity: Increased Parenchymal thickness: Normal Collecting system: No hydronephrosis Stones: None Cyst/Mass: None Bladder: Not visualized, limiting evaluation. Procedure Note Interface, Rad/Mammog In - 04/28/2018 1:42 PM CDT EXAM: Renal Ultrasound INDICATION: darien, eval for hydro COMPARISON: None TECHNIQUE: Transverse and longitudinal images of the kidneys and bladder were obtained. FINDINGS: Right Kidney: Size: 6.8 cm Echogenicity: Increased Parenchymal thickness: Normal Collecting system: No hydronephrosis Stones: None Cyst/Mass: 7.8 x 4.6 x 9.2 cm complex mass extending from the inferolateral right kidney Left Kidney: Size: 9.1 cm Echogenicity: Increased Parenchymal thickness: Normal Collecting system: No hydronephrosis Stones: None Cyst/Mass: None Bladder: Not visualized, limiting evaluation. IMPRESSION IMPRESSION: Approximately 9.2 cm complex mass with cystic spaces, extending from the right renal inferior pole, concerning for renal cell carcinoma. Recommend further evaluation with renal mass protocol CT or MRI. Increased renal parenchymal echogenicity, suggestive of medical renal disease. Signed By: Renato Garnett MD, 04/28/2018 1:37 PM * VBG POC (04/28/2018 3:59 AM) Only the most recent of 2 results within the time period is included. Component Value Ref Range pH, Hao POC 7.30 (L) 7.33 - 7.43 pCO2, Hao POC 55.4 (H) 38.0 - 50.0 mm Hg pO2, Hao POC 18 (L) 50 - 75 mm Hg Base Excess, Hao POC 0 mmol/L HCO3, Hao POC 27.3 (H) 22.0 - 26.0 mmol/L % Sat, Hao POC 22 (L) 60 - 85 % Lactic Acid, Hao POC 1.11 0.4 - 2.0 mmol/L TCO2, HAO POC 29 21 - 32 mmol/L Specimen Performing Laboratory [facility] * UA CHEMISTRIES (04/27/2018 3:00 PM) Component Value Ref Range Color Yellow Clarity Clear Spec Bittinger 1.015 1.001 - 1.035 pH 6.0 5 - 8 Protein 3+ (A) NEG Glucose Negative NEG Ketone Negative NEG Bilirubin Negative NEG Nitrate Negative NEG Urobilinogen <1.0 0.2 - 1.0 EU/dL Leukocyte Negative NEG Blood 1+ (A) NEG RBC 5 (H) 0 - 4 /HPF WBC 2 0 - 5 /HPF Epithelial Cell <1 /HPF Mucous Present Specimen Performing Laboratory [facility] * T PROT/CREA RATIO,UR (04/27/2018 3:00 PM) Component Value Ref Range Creatinine, Ur 84.5 20 - 320 mg/dL T Prot, Ur 5.69 g/L T Prot/Crea Ratio,Ur 6.73 (H) 0.0 - 0.5 Specimen Performing Laboratory Urine [facility] * ELECTROLYTES, UR (04/27/2018 3:00 PM) Component Value Ref Range Sodium, Ur 34 (L) 40 - 220 mmol/L Potassium, Ur 49 25 - 125 mmol/L Chloride, Ur 59 (L) 110 - 250 mmol/L Specimen Performing Laboratory [facility] * CK, TOTAL (04/27/2018 6:10 AM) Only the most recent of 2 results within the time period is included. Component Value Ref Range CK, Total 56 30 - 223 U/L Comment: CKMB not performed if CK <100, if CKMB is required, please notify laboratory immediately. Specimen Performing Laboratory Blood [facility] * XRAY CHEST 2 VIEWS (04/27/2018 4:37 AM) Specimen Performing Laboratory SMS Impressions IMPRESSION: 1.Lateral view not obtained as the patient was unable to position due to pain. No significant interval change. 2.Pulmonary vascular congestion and questionable small left pleural effusion. 3. Bibasilar subsegmental atelectasis. If the report is "FINALIZED" it indicates that the attending/staff radiologist has reviewed the images and agrees with the resident's interpretation. Dictated By: Mykel Rush MD, 04/27/2018 5:13 AM I have reviewed the study and agree with the findings in this report. Signed By: Lucero Winters MD, 04/27/2018 5:20 AM Narrative EXAMINATION:XRAY CHEST 1 VIEWS, Frontal INDICATION: Aspiration COMPARISON:Chest radiographs 04/26/2018. FINDINGS: Limited evaluation as patient was unable to cooperate for the lateral view due to pain. TUBES/LINES:None LUNGS:Pulmonary vascular congestion. Scattered calcified granulomas. Bibasilar subsegmental atelectasis. PLEURA:Questionable small left pleural effusion. HEART/MEDIASTINUM:Normal cardiomediastinal silhouette. Atherosclerotic calcifications of the aortic arch. MUSCULOSKELETAL:No acute findings. Chronic fracture deformities of the posterior right seventh rib and left posterior lateral fifth rib. Diffuse osseous demineralization. UPPER ABDOMEN: Normal Procedure Note Interface, Rad/Mammog In - 04/27/2018 5:25 AM CDT EXAMINATION: XRAY CHEST 1 VIEWS, Frontal INDICATION: Aspiration COMPARISON: Chest radiographs 04/26/2018. FINDINGS: Limited evaluation as patient was unable to cooperate for the lateral view due to pain. TUBES/LINES: None LUNGS: Pulmonary vascular congestion. Scattered calcified granulomas. Bibasilar subsegmental atelectasis. PLEURA: Questionable small left pleural effusion. HEART/MEDIASTINUM: Normal cardiomediastinal silhouette. Atherosclerotic calcifications of the aortic arch. MUSCULOSKELETAL: No acute findings. Chronic fracture deformities of the posterior right seventh rib and left posterior lateral fifth rib. Diffuse osseous demineralization. UPPER ABDOMEN: Normal IMPRESSION IMPRESSION: 1. Lateral view not obtained as the patient was unable to position due to pain. No significant interval change. 2. Pulmonary vascular congestion and questionable small left pleural effusion. 3. Bibasilar subsegmental atelectasis. If the report is "FINALIZED" it indicates that the attending/staff radiologist has reviewed the images and agrees with the resident's interpretation. Dictated By: Mykel Rush MD, 04/27/2018 5:13 AM I have reviewed the study and agree with the findings in this report. Signed By: Lucero Winters MD, 04/27/2018 5:20 AM * TSH (04/27/2018 2:27 AM) Component Value Ref Range TSH 1.29 0.57 - 3.74 uIU/mL Specimen Performing Laboratory [facility] * FREE T4 (04/27/2018 2:27 AM) Component Value Ref Range Free T4 0.72 0.61 - 1.18 ng/dl Comment: females: 1st Trimester-0.52-1.10 ng/dL 2nd Trimester=0.45-0.99 ng/dL 3rd Trimester=0.48-0.95 ng/dL Specimen Performing Laboratory [facility] * FOLIC ACID (04/27/2018 2:27 AM) Component Value Ref Range Folic Acid 13.0 5.9 - 24.8 ng/mL Specimen Performing Laboratory Blood [facility] * FERRITIN (04/27/2018 2:27 AM) Component Value Ref Range Ferritin 34.30 11.0 - 306.8 ng/mL Specimen Performing Laboratory [facility] * VITAMIN B12 (04/27/2018 2:27 AM) Component Value Ref Range Vitamin B12 235 211 - 911 pg/mL Specimen Performing Laboratory Blood [facility] * MAGNESIUM (04/27/2018 2:27 AM) Component Value Ref Range Magnesium 2.5 1.9 - 2.7 mg/dL Specimen Performing Laboratory [facility] * LIVER PROFILE (04/27/2018 2:27 AM) Only the most recent of 2 results within the time period is included. Component Value Ref Range T Protein 7.2 6.0 - 8.3 g/dL Albumin 2.1 (L) 3.7 - 5.3 g/dL T Bilirubin 0.3 0.2 - 1.2 mg/dL Alk Phos 103 34 - 104 U/L AST 21 13 - 39 U/L ALT 10 7 - 52 U/L D Bilirubin 0.4 (H) 0.0 - 0.2 mg/dL Specimen Performing Laboratory [facility] * IRON PROFILE (04/27/2018 2:27 AM) Component Value Ref Range Iron 34 (L) 50 - 212 ug/dL TIBC 193 (L) 250 - 450 ug/dL % Iron Sat 18 % Specimen Performing Laboratory Blood [facility] * BMP POC (04/26/2018 9:36 PM) Component Value Ref Range CO2 POC 26 21 - 32 mmol/L Chloride POC 101 98 - 107 mmol/L Potassium POC 4.0 3.50 - 5.10 mmol/L Sodium POC 138 136 - 145 mmol/L Glucose POC 104 74 - 106 mg/dL Urea Nitrogen POC 22 (H) 7 - 18 mg/dL Creatinine POC 1.6 (H) 0.6 - 1.3 mg/dL Calcium Ionized POC 1.13 (L) 1.15 - 1.29 mmol/L Hemoglobin POC 11.6 (L) 12.0 - 16.0 g/dL Hematocrit POC 34.0 (L) 37.0 - 47.0 % GFR, Estimated 31 mL/min/1.73 m2 GFR, Estim, Afr-Am 38 mL/min/1.73 m2 Specimen Performing Laboratory [facility] * 12 LEAD EKG (04/26/2018 9:35 PM) Component Value Ref Range 12 LEAD EKG FOR [facility] Test Date: 2018-04-26 Pat Name: RAJNI MCMAHON Department: Room: Gender: F 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1940 Requested By: Order Number: [id number] MD: Gretta Rm Measurements Intervals Lawn Rate: 76 P: 73 DC: 182 QRS : 20 QRSD: 94 T: 32 QT: 403 QTc: 454 Interpretive Statements SINUS RHYTHM Electronically Signed On 04-26-18 21:37:41 CDT by Gretta Rm Specimen Performing Laboratory SMS * SALICYLATE (04/26/2018 9:35 PM) Component Value Ref Range Salicylate <2.5 (L)Comment: Test performed on [id number] using 2.8 - 30 mg/dL EMIT Immunoassay Specimen Performing Laboratory Blood [facility] * PT/INR/PTT (04/26/2018 9:35 PM) Component Value Ref Range PT 14.2 11.8 - 15.0 Seconds INR 1.1 SUGGESTED THERAPEUTIC RANGES: INR 2.0-3.0 for MODERATE INTENSITY ANTICOAGULATION INR 2.5-3.5 for HIGH INTENSITY ANTICOAGULATION PTT 27.4 23.6 - 36.4 Seconds Specimen Performing Laboratory Blood [facility] * LIPASE (04/26/2018 9:35 PM) Component Value Ref Range Lipase 10 (L) 11 - 82 U/L Specimen Performing Laboratory [facility] * ACETAMINOPHEN (04/26/2018 9:35 PM) Component Value Ref Range Acetaminophen <10.00 (L)Comment: Test performed on [id number] using 10 - 30 ug /mL EMIT Immunoassay Specimen Performing Laboratory Blood [facility] after 05/19/2017
--- OUTSIDE RECORDS SUMMARY | 2018-07-23 05:32 | XMS REPORT | Summary of Care ---
Author Author [facility] [place] Organization [facility] [place] Address Unknown Phone Unavailable Encounter HQ Cherie_cynthia(FIN) [id number] Date(s): 11/13/15 - 11/13/15 [facility] [place] [address] [place], [place] [address] [phone] Discharge Disposition: Home Attending Physician: Mily Walsh MD Vital Signs No data available for this section Problem List Condition Effective Dates Status Health Status Informant Obesity(Confirmed) Active Allergies, Adverse Reactions, Alerts Substance Reaction Severity Status penicillins Active Tylenol Active Medications No data available for this section Results No data available for this section Immunizations No data available for this section Procedures Procedure Date Related Diagnosis Body Site Cataract surgery Cholecystectomy Operation on colon Procedure on adenoids Removal of remaining ovary Tonsillectomy Uterus excision Social History Social History Type Response Smoking Status Current every day smoker; Total pack years: 51; Exposure to Tobacco Smoke None; Cigarette Smoking Last 365 Days Yes; Reg Smoking Cessation Counseling No Assessment and Plan No data available for this section
--- OUTSIDE RECORDS SUMMARY | 2018-07-23 05:32 | XMS REPORT | Summary of Care ---
Author Author [facility] Organization [facility] Address Unknown Phone Unavailable Encounter KENA Calles(FIN) [phone] Date(s): 10/02/17 - 10/02/17 [facility] [address] [place] [address] Attending Physician: Lino Erickson MD Vital Signs [...]
--- OUTSIDE RECORDS SUMMARY | 2018-07-23 05:32 | XMS REPORT | Summary of Care ---
Author Author [facility] [place] Organization [facility] [place] Address Unknown Phone Unavailable Encounter HQ Cherie_cynthia(FIN) [phone] Date(s): 10/11/15 - 10/11/[address] [facility] [place] [address] [place], [place] [address] [phone] Discharge Disposition: Home Attending Physician: Mily Walsh [...]
--- OUTSIDE RECORDS SUMMARY | 2018-07-23 05:32 | XMS REPORT | Summary of Care ---
Author Author [facility] Organization [facility] Address Unknown Phone Unavailable Encounter KENA Calles(FIN) [id number] Date(s): 04/03/18 - 04/04/18 [facility] [address] [place], [place] [address]470 [phone] Vital Signs No data available for this [...]
--- OUTSIDE RECORDS SUMMARY | 2018-07-23 05:32 | XMS REPORT | Summary of Care ---
Author Author [facility] Outpatient Imaging [facility] Address Unknown Phone Unavailable Encounter HQ Samanthantr_cynthia(FIN) [id number] Date(s): 06/25/17 - 06/25/17 [facility] [address] [place], [place] [address]- Discharge Disposition: Home or Self Care Attending Physician: Kun Pérez MD Vital Signs No data available for this section Problem List Condition Effective Dates Status Health Status Informant Obesity(Confirmed) Active Allergies, Adverse Reactions, Alerts Substance Reaction Severity Status penicillins Active Tylenol Active Medications No data available for this section Results No data available for this section Immunizations Given and Recorded Vaccine Date Status Refusal Reason influenza virus vaccine, inactivated 05/20/16 Recorded pneumococcal 23-valent vaccine 05/20/16 Recorded Procedures Procedure Date Related Diagnosis Body Site Cataract surgery Cholecystectomy Operation on colon Procedure on adenoids Removal of remaining ovary Tonsillectomy Uterus excision Social History Social History Type Response Smoking Status Current every day smoker; Type: Cigarettes; Total pack years : 51; Exposure to Tobacco Smoke None; Cigarette Smoking Last 365 Days Yes; Reg Smoking Cessation Counseling No Assessment and Plan No data available for this section
--- OUTSIDE RECORDS SUMMARY | 2018-07-23 05:32 | XMS REPORT | Summary of Care ---
Author Author [facility] [place] Organization [facility] [place] Address Unknown Phone Unavailable Encounter HQ Cherie_cynthia(GISSEL) [phone] Date(s): 11/14/16 - 11/14/16 [facility] [place] [address] [place] [address] [phone] Discharge Disposition: Home or Self Care Attending [...]
--- OUTSIDE RECORDS SUMMARY | 2018-07-23 05:32 | XMS REPORT | Summary of Care ---
Author Author [facility] Organization [facility] Address Unknown Phone Unavailable Encounter KENA Calles(GISSEL) [id number] Date(s): 03/31/18 - 03/31/18 [facility] [address] [place] [address]- [phone] Discharge Disposition: Home or Self Care Attending Physician: Lino Erickson MD Vital Signs Most recent to 1 oldest [Reference Range]: Height 154.94 cm (03/31/18 10:00 AM) Temperature Oral 97.9 DegF [96.4-99.1 DegF] (03/31/18 10:00 AM) Blood Pressure 131/64 mmHg [90-140/60-90 mmHg] (03/31/18 10:00 AM) Respiratory Rate 16 BRMIN [14-20 BRMIN] (03/31/18 10:00 AM) Peripheral Pulse 73 bpm Rate [60-100 bpm] (03/31/18 10:00 AM) Weight 65 kg (03/31/18 10:00 AM) Body Mass Index 27.08 m2 (03/31/18 10:00 AM) Problem List Condition Effective Dates Status Health Status Informant Hypertension(Confirm Active ed) Lumbar Active radiculopathy(Confir med) Obesity(Confirmed) Active Allergies, Adverse Reactions, Alerts Substance Reaction Severity Status penicillins Active Tylenol Active Medications Estrace 1 mg oral tablet 1 mg=1 tab, PO, Daily, # 90 tab, 1 Refill(s), Pharmacy: [facility] [id number] Start Date: 03/31/18 Status: Ordered gemfibrozil 600 mg oral tablet 600 mg=1 tab, PO, BID, # 180 tab, 1 Refill(s), Pharmacy: [facility] [id number] Start Date: 03/31/18 Status: Ordered Lasix 20 mg oral tablet 20 mg=1 tab, PO, Daily, # 90 tab, 1 Refill(s), Pharmacy: [facility] [id number] Start Date: 03/31/18 Stop Date: 09/27/18 Status: Ordered Lasix 20 mg oral tablet 20 mg=1 tab, PO, Daily, # 30 tab, 0 Refill(s) Start Date: 03/31/18 Stop Date: 03/31/18 Status: Discontinued levofloxacin 250 mg oral tablet 250 mg=1 tab, PO, Daily, X 10 day, # 10 tab, 0 Refill(s), Pharmacy: [facility] [id number] Start Date: 03/31/18 Stop Date: 04/10/18 Status: Ordered losartan 50 mg oral tablet 50 mg=1 tab, PO, Daily, # 90 tab, 1 Refill(s), Pharmacy: [facility] [id number] Start Date: 03/31/18 Stop Date: 09/27/18 Status: Ordered Mucinex DM Max Strength oral tablet, extended release 1 tab, PO, BID, X 14 day, # 28 tab, 0 Refill(s), Pharmacy: [facility] [id number] Start Date: 03/31/18 Stop Date: 04/14/18 Status: Ordered non-formulary Refill(s) 0 Start Date: 03/31/18 Stop Date: 03/31/18 Status: Deleted non-formulary Refill(s) 0 Start Date: 03/31/18 Stop Date: 03/31/18 Status: Deleted omeprazole 40 mg oral delayed release capsule 40 mg=1 cap, PO, Daily, # 90 cap, 1 Refill(s), Pharmacy: [facility] [id number] Start Date: 03/31/18 Status: Ordered potassium chloride 20 mEq oral tablet, extended release 20 mEq=1 tab, PO, Daily, # 90 tab, 1 Refill(s), Pharmacy: [facility] [id number] Start Date: 03/31/18 Stop Date: 09/27/18 Status: Ordered tramadol 50 mg oral tablet 50 mg=1 tab, PO, Q6H, PRN Pain, # 40 tab, 0 Refill(s) Start Date: 03/31/18 Stop Date: 03/31/18 Status: Discontinued tramadol 50 mg oral tablet 50 mg=1 tab, PO, Q8H, PRN Pain, X 90 day, # 270 tab, 1 Refill(s) Start Date: 03/31/18 Stop Date: 09/27/18 Status: Ordered Results No data available for [...]
--- OUTSIDE RECORDS SUMMARY | 2018-07-23 05:32 | XMS REPORT | Summary of Care ---
Author Author [facility] [place] Organization [facility] [place] Address Unknown Phone Unavailable Encounter HQ Cherie_cynthia(FIN) [id number] Date(s): 09/12/15 - 09/12/15 [facility] [place] [address] [place], [place] [address] [phone] Discharge Disposition: Home Attending Physician: Mily Walsh [...]
--- OUTSIDE RECORDS SUMMARY | 2018-07-23 05:32 | XMS REPORT | Summary of Care ---
Author Author [facility] [place] Organization [facility] [place] Address Unknown Phone Unavailable Encounter HQ Amauryr_cynthia(FIN) [id number] Date(s): 05/16/16 - 05/16/16 [facility] [place] [address] [place] [address] [phone] Discharge Disposition: Home or Self Care Attending [...]
--- OUTSIDE RECORDS SUMMARY | 2018-07-23 05:32 | XMS REPORT | Summary of Care ---
Author Author [facility] Organization [facility] Address Unknown Phone Unavailable Encounter KENA Crespo_cynthia(FIN) [id number] Date(s): 11/18/17 - 11/19/17 [facility] [address] [place] [address]- [phone] Vital Signs No data available for this [...]
--- OUTSIDE RECORDS SUMMARY | 2018-07-23 05:33 | XMS REPORT | Clinical Summary ---
Author Author [facility] Organization [facility] Address Unknown Phone Unavailable Care Team Providers Care Marker Maker Name Role Phone PCP Unavailable Allergies Active [...] 05/20/20 Active capsuleIndications: IgA daily. 18 myeloma traMADol (ULTRAM) 50 mg Take 1 tablet by mouth 90 tablet 0 05/20/20 Active tabletIndications: IgA every 8 hours as needed 18 myeloma for Pain. dexamethasone (DECADRON) Take 5 tablets by mouth 40 tablet 0 05/25/20 Active 4 mg tabletIndications: weekly. 18 IgA myeloma potassium chloride (KDUR) Take 10 mEq by mouth 05/20/20 Discontin 10 mEq extended release daily. 18 ued tablet Omeprazole 40 mg capsule Take 40 mg by mouth 05/20/20 Discontin daily. 18 ued losartan (COZAAR) 50 mg Take 50 mg by mouth 05/20/20 Discontin tablet daily. 18 ued furosemide (LASIX) 20 mg Take 20 mg by mouth 05/20/20 Discontin tablet daily. 18 ued HYDROcodone-acetaminophen Take 1 tablet by mouth 05/20/20 Discontin (NORCO) 5-325 mg tablet every 6 hours as needed 18 ued for Pain. traMADol (ULTRAM) 50 mg Take 50 mg by mouth every 05/20/20 Discontin tablet 8 hours as needed for 18 ued Pain. polyethylene glycol 3350 Mix 17 grams into 4 to 8 30 Each 0 05/21/20 05/23/20 (GLYCOLAX) 17 gram oral ounces of water, juice, 18 18 powder packetIndications: soda, tea or coffee and IgA myeloma drink as directed. dexamethasone (DECADRON) Take 5 tablets by mouth 10 tablet 0 05/21/20 05/23/20 4 mg tabletIndications: daily (with breakfast) 18 18 IgA myeloma for 2 days. Active Problems Problem Noted Date Adrenal mass, [...] Date Type Specialty Care Team Description 05/07/2018 Lawrence Maki Natanael 05/01/2018 Procedure Pass 05/01/2018 Procedure Pass 04/26/2018 [facility] Patricia Parker MD Compression fracture of - Encounter Lea Palm MD body of thoracic vertebra 05/20/2018 Leighton Jones MD (Primary Dx); Ruiz Kelley MD Intentional drug overdose, initial encounter; Congestive heart failure, unspecified HF chronicity, unspecified heart failure type; Intentional opiate overdose, initial encounter; Altered mental status, unspecified altered mental status type; Suicidal behavior with attempted self-injury; Chronic systolic congestive heart failure; Oropharyngeal dysphagia; Hypoxia after 05/27/2017 Family History Medical History Relation Name Comments [...] Vital Sign Reading Time Taken Blood Pressure 109/62 05/20/2018 4:00 PM CDT Pulse 65 05/20/2018 4:00 PM CDT Temperature 37.1 C (98.8 F) 05/20/2018 4:00 PM CDT Respiratory Rate 14 05/20/2018 4:00 PM CDT Oxygen Saturation 93% 05/19/2018 7:49 PM CDT Inhaled Oxygen - - Concentration Weight 51.4 kg (113 lb 6 oz) 04/28/2018 9:00 PM CDT Height 154.9 cm (5' 1") 04/28/2018 9:00 PM CDT Body Mass Index 21.42 04/28/2018 9:00 PM CDT Plan of Treatment Date Type Specialty Care Team Description 06/01/2018 Lab Appointment Lab Coral Iraheta MD [facility] [address] [place] [address] 06/01/2018 Office Visit Hematology Coral Iraheta MD per [facility] [address] [place] [address] 06/05/2018 Office Visit Family Jemima Maravilla NP [phone] Health Maintenance Due Date Last Done Comments [...] By: Theo Lewis MD, 05/15/2018 8:41 AM Narrative EXAM: XR [...] mass Date and Time: 05/14/2018 4:53 PM shot core drill operator: Dr. Darion Foster MD Assistants: Dr. [...] Condition: Stable Disposition: PACU CPT procedure code: 09322, 66385, 36702 S&I code: 07228 DISCUSSION: The prior CT and MRI were [...] mass Date and Time: 05/14/2018 4:53 PM shot core drill operator: Dr. Darion Foster MD Assistants: Dr. [...] Condition: Stable Disposition: PACU CPT procedure code: 73499, 13696, 58054 S&I code: 21495 DISCUSSION: The prior CT and MRI were [...] mass Date and Time: 05/14/2018 4:53 PM shot core drill operator: Dr. Darion Foster MD Assistants: Dr. [...] Condition: Stable Disposition: PACU CPT procedure code: 32936, 91261, 06465 S&I code: 69385 DISCUSSION: The prior CT and MRI were [...] mass Date and Time: 05/14/2018 4:53 PM shot core drill operator: Dr. Darion Foster MD Assistants: Dr. [...] Condition: Stable Disposition: PACU CPT procedure code: 24238, 80999, 53180 S&I code: 31761 DISCUSSION: The prior CT and MRI were [...] mass Date and Time: 05/14/2018 4:53 PM shot core drill operator: Dr. Darion Foster MD Assistants: Dr. [...] Condition: Stable Disposition: PACU CPT procedure code: 65853, 18146, 37172 S&I code: 91567 DISCUSSION: The prior CT and MRI were [...] mass Date and Time: 05/14/2018 4:53 PM shot core drill operator: Dr. Darion Foster MD Assistants: Dr. [...] Condition: Stable Disposition: PACU CPT procedure code: 98467, 69130, 86578 S&I code: 96831 DISCUSSION: The prior CT and MRI were [...] Jamaica Schuster MD, 05/19/2018 7:35 AM * [facility] SURGICAL PATHOLOGY (05/14/2018 3:50 PM) Only the most recent of 3 results within the time period is included. Component Value Ref Range [facility] Surgical Pathology (note) Name RAJNI BOTELLO Date of 1940 Hospital Number [id number] Location [address] Medical Surgical SURGICAL PATHOLOGY Collected: 05/14/2018 [...] correlation is suggested. The concurrent FNA specimen ([id number]) shows atypical plasm cells; however these cells are not present in this biopsy. Pertinent Clinical Information Right renal mass and left adrenal mass Gross Description Specimen Material: Left adrenal biopsy The case is received in one part labeled with the patient's name "RAJNI BOTELLO", medical record number and given accession number [id number], and it is accompanied by a requisition form labeled with the same name and accession number. Received in formalin labeled "LEFT ADRENAL BIOPSY" is a 0.5 x 0.5 x 0.2 cm aggregate of multiple red-eid cores of tissue which are submitted entirely in cassettes A1-A2. JOSE SLATER MD Pathology Resident Microscopic Description Performed. Vane ZarcoB.S./[id number] Pathology Resident Electronically Signed Out Ruthie Clifton M.D./[id number] Staff Pathologist Specimen Performing Laboratory [facility] * [...] ANTICOAGULATION Specimen Performing Laboratory Blood [facility] * [facility] CYTOLOGY (05/14/2018) Component Value Ref Range [facility] Cytology (note) Name RAJNI BOTELLO Date of 1940 Hospital Number [id number] Location [address] Medical Surgical CYTOPATHOLOGY Collected: 05/14/2018 00:00 Received: 05/14/2018 16:27 FINAL DIAGNOSIS Renal, right, deep fine needle aspiration: Specimen satisfactory for evaluation Scant cellularity Suspicious for malignancy;; see comment Comment The FNA is relatively scant, with only one of 4 passes with cellularity. This pass shows scattered atypical cells with relatively abundant but delicate cytoplasm. Several of the nuclei have visible but small nucleoli. Occasional cells have vacuolated cytoplasm. Elsewhere in the smears adipose tissue and,fibrous stroma with transgressing vessels are noted. While these findings raise the possibility of a renal cell carcinoma, other lesions, in particular an angiomyolipoma are also in the differential. A few atypical plasma cells admixed with other blood elementsare also present.. These cells show atypical nuclei, perinuclear clearing and abundant cytoplasm. 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 The cell block shows rare atypical cells admixed with fibrin.; Clinical correlation and a renal core biopsy are recommended, if pursuit of the renal lesion is indicated. The findings on this FNA specimen does not correlate with the concurrent core biopsy ([id number]). Please see biopsy report on this patient. Intradepartmental Consultation: Dr. Hema Hart has reviewed the case and concurs with the findings and diagnosis. Electronically Signed Out Ruthie Clifton M.D./[id number] Staff Pathologist Clinical History 78 y/o Female: with 9.2cm complex mass with cystic spaces extending from right renal pole (inferior) concerning for RCC. MRI - RCC with left adrenal mass and vertebral body (T12) fracture Cancer History: The clinical presentation is suggestive of cancer Gross Description FNA performed by specialty clinic Radiologist performed a fine-needle aspiration of a 9.2cm mass of the right renal mass. 3 passes were performed: 5 Diff-Quick(s), 3 Pap stain(s). An adequacy check was performed. The remainder of the material was submitted in saline. Additional slides were requested and prepared: 0 cytospin(s), 0 cytospin(s) for special stains. A cellblock was prepared. A core biopsy was prepared. A total of 8 slides were given to the cytology fellow(s) on 05/15/2018. Specimen Performing Laboratory [facility] * CBC/DIFF (05/12/2018 12:03 PM) Only [...] 20 cell analyses. A FISH panel (test #[id number]) may be effectively used in low mitotic multiple myeloma, for example, to detect high incidence, prognosis-related alterations. . A test option for a whole genome SNP microarray is also available (test #[id number]) that can resolve genomic imbalance at a level of sensitivity over 200 times cytogenetic resolution. This testing can be performed from the current remaining sample, if available. Call x [phone]. Director Review: Comment: (note) Claire Hernandez, PhD [...] PM) Component Value Ref Range Beta2 Microglob,[place] 66355 Reference range: 0 to 300 Unit: ug/L (note) Results verified by repeat testing (H) Specimen Performing Laboratory Urine [facility] * JOHNNY, UR (05/10/2018 8:52 AM) Component Value Ref Range JOHNNY, Ur Electronically signed out by: Gale Perkins,PhD./[id number] (note) Interpretation: There is a major monoclonal [...] g/day Comment Electronically signed out by: Gale Perkins,PhD./[id number] (note) Interpretation: There is a major monoclonal [...] Range JOHNNY Electronically signed out by: Gale Perkins,PhD./[id number] (note) Interpretation: There are 2 monoclonal peaks in the gamma region. These have been identified by immunofixation as IgA lambda, at a concentration of 3.64 g/dl. Specimen Performing Laboratory [facility] * ELECTROPH, BLD (05/09/2018 11:46 AM) Component Value Ref Range Protein 7.2 g/dL Comment Electronically signed out by: Gale Perkins,PhD./[id number] (note) Interpretation: There are 2 monoclonal peaks [...] mcg/dL Specimen Performing Laboratory Blood [facility] * PERC AUGMENTATION, EACH ADDITIONAL THORACIC OR LUMBAR (KYPHOPLASTY) (2017 11:24 AM) Only the most recent of 3 results within the time period is included. Specimen Performing Laboratory SMS Narrative Procedure: T9, T12, L1, and L2 Vertebral Augmentation Date and Time: 05/05/2018 11:24 AM History:Chronic back pain, multilevel thoracolumbar compression fractures Date and Time: 05/05/2018 11:24 AM shot core drill operator: Dr. Anil Richey MD Assistants: Brenden Damico MD; French Marley MD Staff: Dr. Anil Richey MD Preoperative diagnosis: T9, T12, L1, and L2 vertebral body compression fractures Post operative diagnosis: T9, T12, L1, and L2 vertebral body compression fractures Antibiotics: 1 g of cefazolin was administered by slow infusion by the IR nurse 1 hour prior to the procedure. Medications: Versed 3 mg and Fentanyl 200 mcg.Lidocaine 1%10 ml SQ. 20 cc bupivacaine 0.25% subcutaneous. Sedation: Moderate sedation administered by interventional radiology nurse under supervision of the interventional radiologist with continuous hemodynamic monitoring. Fluoro Time: 16.6?min Air Kerma: 555.04?(frontal) + 1228.14?(lateral) mGy Contrast used: None Estimated Blood Loss: 10 cc Specimens: None Implants/Grafts: PMMA Blood administered: None CPT codes:70519, 54626 x3 Technique: Following informed written consent, patient was placed in a prone position on the angiography table. According to universal protocol, preprocedural time-out was performed with team members agreeing on patient identity, correct site and procedure to be done.The skin was clean, prepped and draped in the usual sterile fashion.Employment Specialist images were obtained.Local and periosteal anesthesia was injected and conscious sedation was administered. Then the T9, T12, and L1 vertebral bodies were accessed under fluoroscopic guidance using a right transpedicular approach. The L2 vertebral body was accessed under fluoroscopic guidance using a left transpedicular approach. Cavity creation was performed using a [employer] coaxial needle guide and stylet followed by balloon dilatation. Bone fragment samples from each vertebral body level was placed in separately labeled formalin and submitted to pathology for further evaluation. Balloon rupture through the superior endplate of T9 was noted. Then under fluoroscopic guidance, Jay HV PMMA was injected into the vertebral body (approximately 2cc T9, 4cc T12, 3cc L1, 4cc L2). Cement extravasation was seen at the superior endplate of T9 into the T8-T9 disc. No cement extravasation was seen at the remaining levels. Cement was allowed to harden for approximately 10 minutes. The needles were then removed and hemostasis was acquired by manual compression.A sterile dressing was applied.Procedure was well tolerated and without immediate complication.The patient remained neurologically intact and unchanged during and following the procedure. Patient reported 9 /10 back pain prior to procedure. Immediate postprocedure back pain could not be assessed due to sedation. Patient with 5/10 pain the following day and able to participate in basic PT/OT. Dr. Anil Richey was present throughout the procedure. Findings: 1.T9, T12, L1, and L2 compression fractures. 2.Post procedure imaging demonstrates bilateral distribution of PMMA. 3.Small amount of cement extravasation into the T8-T9 disc space. Impression: T9, T12, L1, and L2 vertebral augmentation with an inflatable balloon tamp, technically and clinically successful. Plan: 1.Per PQRS criteria, patient should be screened for osteoporosis. 2.Follow-up biopsy results given concern for right renal and left adrenal malignancy. A "PRELIMINARY" report was made available via [employer] at the time of dictation by the resident indicated below. If described as"FINALIZED" it indicates the attending/staff radiologist below has reviewed the images and agrees with the report. Dictated By: Brenden Damico MD, 05/06/2018 11:09 AM I have reviewed the study and agree with the findings in this report. Signed By: Anil Richey MD, 05/21/2018 2:13 PM Procedure Note Interface, Rad/Mammog In - 05/21/2018 2:18 PM CDT Procedure: T9, T12, L1, and L2 Vertebral Augmentation Date and Time: 05/05/2018 11:24 AM History:Chronic back pain, multilevel thoracolumbar compression fractures Date and Time: 05/05/2018 11:24 AM shot core drill operator: Dr. Anil Richey MD Assistants: Brenden Damico MD; French Marley MD Staff: Dr. Anil Richey MD Preoperative diagnosis: T9, T12, L1, and L2 vertebral body compression fractures Post operative diagnosis: T9, T12, L1, and L2 vertebral body compression fractures Antibiotics: 1 g of cefazolin was administered by slow infusion by the IR nurse 1 hour prior to the procedure. Medications: Versed 3 mg and Fentanyl 200 mcg. Lidocaine 1% 10 ml SQ. 20 cc bupivacaine 0.25% subcutaneous. Sedation: Moderate sedation administered by interventional radiology nurse under supervision of the interventional radiologist with continuous hemodynamic monitoring. Fluoro Time: 16.6?min Air Kerma: 555.04?(frontal) + 1228.14?(lateral) mGy Contrast used: None Estimated Blood Loss: 10 cc Specimens: None Implants/Grafts: PMMA Blood administered: None CPT codes: 44825, 42547 x3 Technique: Following informed written consent, patient was placed in a prone position on the angiography table. According to universal protocol, preprocedural time-out was performed with team members agreeing on patient identity, correct site and procedure to be done. The skin was clean, prepped and draped in the usual sterile fashion. Employment Specialist images were obtained. Local and periosteal anesthesia was injected and conscious sedation was administered. Then the T9, T12, and L1 vertebral bodies were accessed under fluoroscopic guidance using a right transpedicular approach. The L2 vertebral body was accessed under fluoroscopic guidance using a left transpedicular approach. Cavity creation was performed using a Jay coaxial needle guide and stylet followed by balloon dilatation. Bone fragment samples from each vertebral body level was placed in separately labeled formalin and submitted to pathology for further evaluation. Balloon rupture through the superior endplate of T9 was noted. Then under fluoroscopic guidance, [place] HV PMMA was injected into the vertebral body (approximately 2cc T9, 4cc T12, 3cc L1, 4cc L2). Cement extravasation was seen at the superior endplate of T9 into the T8-T9 disc. No cement extravasation was seen at the remaining levels. Cement was allowed to harden for approximately 10 minutes. The needles were then removed and hemostasis was acquired by manual compression. A sterile dressing was applied. Procedure was well tolerated and without immediate complication. The patient remained neurologically intact and unchanged during and following the procedure. Patient reported 9 /10 back pain prior to procedure. Immediate postprocedure back pain could not be assessed due to sedation. Patient with 5/10 pain the following day and able to participate in basic PT/OT. Dr. Anil Richey was present throughout the procedure. Findings: 1. T9, T12, L1, and L2 compression fractures. 2. Post procedure imaging demonstrates bilateral distribution of PMMA. 3. Small amount of cement extravasation into the T8-T9 disc space. Impression: T9, T12, L1, and L2 vertebral augmentation with an inflatable balloon tamp, technically and clinically successful. Plan: 1. Per PQRS criteria, patient should be screened for osteoporosis. 2. Follow-up biopsy results given concern for right renal and left adrenal malignancy. A "PRELIMINARY" report was made available via [employer] at the time of dictation by the resident indicated below. If described as "FINALIZED" it indicates the attending/staff radiologist below has reviewed the images and agrees with the report. Dictated By: Brenden Damico MD, 05/06/2018 11:09 AM I have reviewed the study and agree with the findings in this report. Signed By: Anil Richey MD, 05/21/2018 2:13 PM * PERC AUGMENTATION, 1ST THORACIC W/ CAVITY CREATION (KYPHOPLASTY) (05/05/2018 11:24 AM) Specimen Performing Laboratory SMS Narrative Procedure: T9, T12, L1, and L2 Vertebral Augmentation Date and Time: 05/05/2018 11:24 AM History:Chronic back pain, multilevel thoracolumbar compression fractures Date and Time: 05/05/2018 11:24 AM shot core drill operator: Dr. Anil Richey MD Assistants: Brenden Damico MD; French Marley MD Staff: Dr. Anil Richey MD Preoperative diagnosis: T9, T12, L1, and L2 vertebral body compression fractures Post operative diagnosis: T9, T12, L1, and L2 vertebral body compression fractures Antibiotics: 1 g of cefazolin was administered by slow infusion by the IR nurse 1 hour prior to the procedure. Medications: Versed 3 mg and Fentanyl 200 mcg.Lidocaine 1%10 ml SQ. 20 cc bupivacaine 0.25% subcutaneous. Sedation: Moderate sedation administered by interventional radiology nurse under supervision of the interventional radiologist with continuous hemodynamic monitoring. Fluoro Time: 16.6?min Air Kerma: 555.04?(frontal) + 1228.14?(lateral) mGy Contrast used: None Estimated Blood Loss: 10 cc Specimens: None Implants/Grafts: PMMA Blood administered: None CPT codes:98004, 74323 x3 Technique: Following informed written consent, patient was placed in a prone position on the angiography table. According to universal protocol, preprocedural time-out was performed with team members agreeing on patient identity, correct site and procedure to be done.The skin was clean, prepped and draped in the usual sterile fashion.Employment Specialist images were obtained.Local and periosteal anesthesia was injected and conscious sedation was administered. Then the T9, T12, and L1 vertebral bodies were accessed under fluoroscopic guidance using a right transpedicular approach. The L2 vertebral body was accessed under fluoroscopic guidance using a left transpedicular approach. Cavity creation was performed using a [place] coaxial needle guide and stylet followed by balloon dilatation. Bone fragment samples from each vertebral body level was placed in separately labeled formalin and submitted to pathology for further evaluation. Balloon rupture through the superior endplate of T9 was noted. Then under fluoroscopic guidance, [place] HV PMMA was injected into the vertebral body (approximately 2cc T9, 4cc T12, 3cc L1, 4cc L2). Cement extravasation was seen at the superior endplate of T9 into the T8-T9 disc. No cement extravasation was seen at the remaining levels. Cement was allowed to harden for approximately 10 minutes. The needles were then removed and hemostasis was acquired by manual compression.A sterile dressing was applied.Procedure was well tolerated and without immediate complication.The patient remained neurologically intact and unchanged during and following the procedure. Patient reported 9 /10 back pain prior to procedure. Immediate postprocedure back pain could not be assessed due to sedation. Patient with 5/10 pain the following day and able to participate in basic PT/OT. Dr. Anil Richey was present throughout the procedure. Findings: 1.T9, T12, L1, and L2 compression fractures. 2.Post procedure imaging demonstrates bilateral distribution of PMMA. 3.Small amount of cement extravasation into the T8-T9 disc space. Impression: T9, T12, L1, and L2 vertebral augmentation with an inflatable balloon tamp, technically and clinically successful. Plan: 1.Per PQRS criteria, patient should be screened for osteoporosis. 2.Follow-up biopsy results given concern for right renal and left adrenal malignancy. A "PRELIMINARY" report was made available via [employer] at the time of dictation by the resident indicated below. If described as"FINALIZED" it indicates the attending/staff radiologist below has reviewed the images and agrees with the report. Dictated By: Brenden Damico MD, 05/06/2018 11:09 AM I have reviewed the study and agree with the findings in this report. Signed By: Anil Richey MD, 05/21/2018 2:13 PM Procedure Note Interface, Rad/Mammog In - 05/21/2018 2:18 PM CDT Procedure: T9, T12, L1, and L2 Vertebral Augmentation Date and Time: 05/05/2018 11:24 AM History:Chronic back pain, multilevel thoracolumbar compression fractures Date and Time: 05/05/2018 11:24 AM shot core drill operator: Dr. Anil Richey MD Assistants: Brenden Damico MD; French Marley MD Staff: Dr. Anil Richey MD Preoperative diagnosis: T9, T12, L1, and L2 vertebral body compression fractures Post operative diagnosis: T9, T12, L1, and L2 vertebral body compression fractures Antibiotics: 1 g of cefazolin was administered by slow infusion by the IR nurse 1 hour prior to the procedure. Medications: Versed 3 mg and Fentanyl 200 mcg. Lidocaine 1% 10 ml SQ. 20 cc bupivacaine 0.25% subcutaneous. Sedation: Moderate sedation administered by interventional radiology nurse under supervision of the interventional radiologist with continuous hemodynamic monitoring. Fluoro Time: 16.6?min Air Kerma: 555.04?(frontal) + 1228.14?(lateral) mGy Contrast used: None Estimated Blood Loss: 10 cc Specimens: None Implants/Grafts: PMMA Blood administered: None CPT codes: 21964, 92959 x3 Technique: Following informed written consent, patient was placed in a prone position on the angiography table. According to universal protocol, preprocedural time-out was performed with team members agreeing on patient identity, correct site and procedure to be done. The skin was clean, prepped and draped in the usual sterile fashion. Employment Specialist images were obtained. Local and periosteal anesthesia was injected and conscious sedation was administered. Then the T9, T12, and L1 vertebral bodies were accessed under fluoroscopic guidance using a right transpedicular approach. The L2 vertebral body was accessed under fluoroscopic guidance using a left transpedicular approach. Cavity creation was performed using a [employer] coaxial needle guide and stylet followed by balloon dilatation. Bone fragment samples from each vertebral body level was placed in separately labeled formalin and submitted to pathology for further evaluation. Balloon rupture through the superior endplate of T9 was noted. Then under fluoroscopic guidance, Jay HV PMMA was injected into the vertebral body (approximately 2cc T9, 4cc T12, 3cc L1, 4cc L2). Cement extravasation was seen at the superior endplate of T9 into the T8-T9 disc. No cement extravasation was seen at the remaining levels. Cement was allowed to harden for approximately 10 minutes. The needles were then removed and hemostasis was acquired by manual compression. A sterile dressing was applied. Procedure was well tolerated and without immediate complication. The patient remained neurologically intact and unchanged during and following the procedure. Patient reported 9 /10 back pain prior to procedure. Immediate postprocedure back pain could not be assessed due to sedation. Patient with 5/10 pain the following day and able to participate in basic PT/OT. Dr. Anil Richey was present throughout the procedure. Findings: 1. T9, T12, L1, and L2 compression fractures. 2. Post procedure imaging demonstrates bilateral distribution of PMMA. 3. Small amount of cement extravasation into the T8-T9 disc space. Impression: T9, T12, L1, and L2 vertebral augmentation with an inflatable balloon tamp, technically and clinically successful. Plan: 1. Per PQRS criteria, patient should be screened for osteoporosis. 2. Follow-up biopsy results given concern for right renal and left adrenal malignancy. A "PRELIMINARY" report was made available via [employer] at the time of dictation by the resident indicated below. If described as "FINALIZED" it indicates the attending/staff radiologist below has reviewed the images and agrees with the report. Dictated By: Brenden Damico MD, 05/06/2018 11:09 AM I have reviewed the study and agree with the findings in this report. Signed By: Anil Richey MD, 05/21/2018 2:13 PM * MRI KIDNEY W AND W/O CONTRAST [...] contrast. T1-weighted, T2-weighted images, T1-weighted in and cvp-[id number], and Diffusion weighted images. Dynamic, post gadolinium [...] contrast. T1-weighted, T2-weighted images, T1-weighted in and [id number]-[id number], and Diffusion weighted images. Dynamic, post gadolinium [...] TRANSTHORACIC ECHO (TTE) Transthoracic Echo Report RAJNI BOTELLO Age: 78 Gender: F : 1940 Exam Date: 04/29/2018 08:06 Exam Location: [facility] Echo Ordering Phys: LEIGHTON JONES Referring Phys: Reading Phys: Alexus Nick Fellow Phys: Fellow Phys: Furniture Salesperson: Aiden Jackson Reason For Exam: Indications: Dyspnea, unspecified ICD-9 Codes: R06.00 Exam Type: TRANSTHORACIC ECHO (TTE) Procedure CPT: 14144 Addtional CPT: Ht (in): 61 BSA: 1.49 [...] D deficiency has been defined by the [place] of Medicine and Endocrine Society guideline as [...] Ref Range Color Yellow Clarity Clear Spec [place] 1.015 1.001 - 1.035 pH 6.0 5 [...] Value Ref Range 12 LEAD EKG FOR [facility] Test Date: 2018-04-26 Pat Name: RAJNI BOTELLO Department: Room: Gender: F 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1940 Requested By: Order Number: Reading MD: Gretta Rm Measurements Intervals [place] Rate: 76 P: 73 PA: 182 QRS : 20 QRSD: 94 T: 32 QT: 403 QTc: 454 Interpretive Statements SINUS RHYTHM Electronically Signed On 04-26-18 21:37:41 CDT by Gretta Rm Specimen Performing Laboratory SMS * SALICYLATE (04/26/2018 9:35 PM) Component Value Ref Range Salicylate <2.5 (L)Comment: Test performed on DU9805 using 2.8 - 30 mg/dL EMIT Immunoassay [...] Range Acetaminophen <10.00 (L)Comment: Test performed on ST0569 using 10 - 30 ug /mL EMIT Immunoassay Specimen Performing Laboratory Blood MISYS after 05/27/2017
--- OUTSIDE RECORDS SUMMARY | 2018-07-23 05:33 | XMS REPORT ---
Author [facility] Address Unknown Phone Unavailable Care Team Providers Care Manager [employer] Name Role Phone TACOS CEJA Unavailable Unavailable Problems This patient has no known problems. Allergies, Adverse Reactions, Alerts This patient has no known allergies or adverse reactions. Medications This patient has no known medications. Encounters Start Date/Time End Date/Time Encounter Type Admission Type Attending [facility] Care Facility Care Department Encounter ID 2018-05-14 20:19:30 Inpatient [facility] [id number] 2018-05-14 16:51:33 Inpatient [facility] [id number] 2018-05-14 16:39:51 Inpatient [facility] [id number] 2018-05-14 14:21:57 Inpatient [facility] [id number] 2018-05-14 09:20:45 Inpatient [facility] [id number] 2018-05-11 11:12:45 Inpatient [facility] [id number] 2018-05-05 08:23:50 Inpatient [facility] [id number] 2018-05-04 14:54:27 Inpatient [facility] [id number] 2018-05-02 12:13:47 Inpatient [facility] [id number] 2018-05-02 12:05:23 Inpatient [facility] [id number] 2018-05-01 17:08:19 Inpatient [facility] [id number] 2018-05-01 15:31:02 Inpatient [facility] [id number] 2018-04-30 11:18:33 Inpatient [facility] [id number] 2018-04-30 00:00:00 Inpatient [facility] [id number] 2018-04-29 00:00:00 Inpatient [facility] [id number] 2018-04-29 00:00:00 Inpatient [facility] [id number] 2018-08-24 00:00:00 2018-08-24 00:00:00 Outpatient [facility] [id number] 2018-08-24 00:00:00 2018-08-24 00:00:00 Outpatient [facility] [id number] 2018-07-20 00:00:00 2018-07-20 00:00:00 Outpatient [facility] [id number] 2018-07-20 00:00:00 2018-07-20 00:00:00 Outpatient [facility] [id number] 2018-07-02 00:00:00 2018-07-02 00:00:00 Outpatient [facility] [id number] 2018-06-18 00:00:00 2018-06-18 00:00:00 Outpatient [facility] [id number] 2018-06-15 00:00:00 2018-06-15 00:00:00 Outpatient [facility] [id number] 2018-06-15 00:00:00 2018-06-15 00:00:00 Outpatient [facility] [id number] 2018-06-05 00:00:00 2018-06-05 00:00:00 Outpatient [facility] [id number] 2018-06-01 00:00:00 2018-06-01 00:00:00 Outpatient [facility] [id number] 2018-06-01 00:00:00 2018-06-01 00:00:00 Outpatient [facility] [id number] 2018-04-29 09:17:45 2018-04-29 09:17:45 Outpatient [facility] [id number] 2018-04-28 12:23:53 2018-04-28 12:23:53 Outpatient [facility] [id number] 2018-04-28 04:17:00 2018-04-28 04:17:00 Outpatient [facility] [id number] 2018-04-28 00:00:00 2018-04-28 00:00:00 Outpatient [facility] [id number] 2018-04-27 04:18:23 2018-04-27 04:18:23 Outpatient [facility] [id number] 2018-04-27 00:00:00 2018-04-27 00:00:00 Outpatient [facility] [id number] 2018-04-26 21:39:15 2018-04-26 21:39:15 Emergency [facility] [id number] 2018-04-26 21:25:57 2018-04-26 21:25:57 Inpatient [facility] [id number] Results Test Description Test Time Test Comments Text Results Atomic Results Result Comments CHEST SINGLE (PORTABLE) 2018-06-25 06:29:[address] [address] Patient Name: EMMA MCMAHON MR #: [id number] : 1940 Age/Sex: 78/F Req #: [id number] Adm Physician: TACOS CEJA MD Ordered by: Gabriela Munoz NP Report #: [id number] Location: MED/SURG Room/ Bed: [facility] Procedure: [id number] DX/CHEST SINGLE ( PORTABLE) Exam Date: 06/25/18 Exam Time: 0535 REPORT STATUS: Signed CHEST SINGLE (PORTABLE), 06/25/2018 4:00 AM Technique: CHEST SINGLE (PORTABLE) Comparison: 06/23/2018 Clinical history: Follow-up pneumonia/effusion Findings: See Impression. Incidental calcified lung granulomas and remote right rib fracture. Impression: 1. Stable cardiomediastinal silhouette. 2. Improved left lower lobe atelectasis/consolidation with suspected adjacent pleural effusion. 3. Stable to decreased right basilar opacity, which may reflect atelectasis or aspiration/infection. Signed by: Dr John Gonzales MD on 06/25/2018 6:30 AM Dictated By: JOHN GONZALES MD 9 Transcribed By: L[place]ON on 06/25/18629 COPY TO: GABRIELA MUNOZ SEPARATING MACHINE OPERATOR CT ABDOMEN/PELVIS WO 2018-06-23 09:03:00 [place] [id number] Patient Name: EMMA MCMAHON MR #: [id number] : 1940 Age/Sex: 78/F Req #: [id number] Adm Physician: TACOS CEJA MD Ordered by : PETER GARCIA SEPARATING MACHINE OPERATOR Report #: [id number] Location: [facility] Room/Bed: [facility] 177-1 Procedure: CT/CT ABDOMEN/PELVIS WO Exam Date: 06/23/18 Exam Time: 0800 REPORT STATUS: Signed PROCEDURE: CT ABDOMEN AND PELVIS WITHOUT CONTRAST TECHNIQUE: The abdomen and pelvis were scanned utilizing a multidetector helical scanner from the diaphragm to the lesser trochanter with oral contrast. No IV contrast was administered per request. Coronal and sagittal multiplanar reformations were obtained. COMPARISON: None. INDICATIONS: RENAL CANCER FINDINGS: ABSENCE OF INTRAVENOUS CONTRAST DECREASES SENSITIVITY FOR DETECTION OF FOCAL LESIONS AND VASCULAR PATHOLOGY. LOWER THORAX: Left lower lobe consolidation with associated volume loss. There is a 5 mm right middle lobe solid pulmonary nodule. Calcified granuloma in the right lower lobe. Coronary atherosclerosis. HEPATOBILIARY : There is a subcentimeter right hepatic lobe lesion on series 2, image 20. No biliary ductal dilatation. Status post cholecystectomy. SPLEEN: No splenomegaly. PANCREAS: No focal masses or ductal dilatation. ADRENALS: There is a right adrenal mass, measuring up to 3.9 cm (16 HU; series 2 image 16). There is a left adrenal mass measuring up to 5.6 cm which contains solid components and fat. KIDNEYS/URETERS: No hydronephrosis or stones. There is a 6.3 x 5.9 x 8.7 cm exophytic mass (14 HU; series 2, image 24) arising from the right mid pole kidney anteriorly. The mass has mass effect and indents the liver anteriorly without definite invasion. PELVIC ORGANS/ BLADDER: Hinton catheter is present in the bladder. PERITONEUM / RETROPERITONEUM: No free air or fluid. LYMPH NODES: No lymphadenopathy. VESSELS: Atherosclerotic calcifications of the abdominal aorta and branch vessels. GI TRACT: No wall thickening. Sigmoid diverticulosis without CT evidence of diverticulitis. The rectum is distended with stool measuring up to 7.5 cm. BONES AND SOFT TISSUES: There has been prior vertebral augmentation at T9, T12, L1, and L2. There are compression deformities with loss of greater than 75 percent of vertebral body height at T9 and L1 and loss of approximately 50 percent of vertebral body height at T12 and L2. Additional age indeterminate compression deformities are present at L3 and L4 with loss of less than 50 percent of vertebral body height. No evidence of retropulsion. Diffuse osteopenia. IMPRESSION: Right mid pole renal mass measuring up to 8.7 cm with right adrenal mass. 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 Additional heterogeneous solid left adrenal mass which has components of fat , which may represent adrenal metastasis, although a primary fat containing adrenal neoplasm is also possible. Per clinical history the patient has known right sided renal cancer, correlation with outside imaging would be helpful. Indeterminate subcentimeter right hepatic lobe lesion. Indeterminate 5 mm right middle lobe pulmonary nodule. Correlation with outside imaging or dedicated imaging is suggested. Left lower lobe pulmonary consolidation with volume loss, may reflect atelectasis and/or pneumonia. Multilevel thoracic and lumbar vertebral augmentation with compression deformities as above. Dictated by: GATO OLIVAS M.D. on 06/23/2018 at 9:03 Electronically approved by: GATO OLIVAS M.D. on 01/2018 at 9:03 Dictated By: GATO OLIVAS MD 2 Transcribed By: SELWYN on 06/23/18902 COPY TO: PETER GARCIA SEPARATING MACHINE OPERATOR CHEST SINGLE (PORTABLE) 2018-06-23 06:24:00 [place] [address] Patient Name: EMMA MCMAHON MR #: [id number] : 1940 Age/Sex: 78/F Req #: [id number] Adm Physician: TACOS CEJA MD Ordered by: Gabriela Munoz NP Report #: [id number] Location: [facility] Room/Bed: [place] [address] Procedure: DX/CHEST SINGLE ( PORTABLE) Exam Date: 06/23/18 Exam Time: 05 REPORT STATUS: Signed CHEST SINGLE (PORTABLE), 06/23/2018 4:00 AM Technique: CHEST SINGLE (PORTABLE) Comparison: 06/21/2018 Clinical history: Pneumonia/edema Findings: See Impression. Incidental calcified lung granulomas and remote right rib fracture. Impression: 1. Stable cardiomediastinal silhouette. 2. Unchanged left lower lobe consolidation with suspected adjacent pleural effusion. 3. Increased right basilar opacity, which may reflect atelectasis or aspiration/infection. Signed by: Dr John Gonzales MD on 06/23/2018 6:26 AM Dictated By: JOHN GONZALES MD 5 Transcribed By: LONDON on 06/23/18625 COPY TO: GABRIELA MUNOZ SEPARATING MACHINE OPERATOR CT BRAIN WO 2018-06-21 21:08:00 [place] [address] Patient Name: EMMA MCMAHON MR #: [id number] : 1940 Age/Sex: 78/F Req #: [id number] [facility] Physician: TACOS CEJA MD Ordered by: Gabriela Munoz SEPARATING MACHINE OPERATOR Report #: [id number] Location: [facility] Room/Bed: [place] [address] Procedure: CT/CT BRAIN WO Exam Date: Exam Time: 2037 REPORT STATUS: Signed EXAMINATION: Head CT HISTORY: Altered mental status, evaluate for brain metastases COMPARISON: None. TECHNIQUE: Multidetector axial images were obtained without contrast from the foramen magnum to the vertex . The images were reconstructed using brain and bone algorithms. Thin section brain images were reformatted into coronal and sagittal planes. Intravenous contrast: None. Image quality: Motion/streaking artifact limits the evaluation of the skull base and posterior cranial fossa. Dose modulation , iterative reconstruction, and/or weight based adjustment of the mA/kV was utilized to reduce the radiation dose to as low as reasonably achievable. FINDINGS: Parenchyma: 1. Few scattered and mildly confluent periventricular white matter hypodensities, most likely nonspecific chronic microvascular ischemic changes. 2. No mass or hemorrhage. No CT evidence of acute territorial vascular insult. No vasogenic edema, mass defect, midline shift or herniation. Extra-axial spaces:No abnormal density. No extra-axial fluid collections Brain volume: Normal for age. Ventricles: No hydrocephalus or displacement. Arteries: No density suggestive of thrombus. Dural sinuses: No abnormal density. Extra-axial spaces: No abnormal density. Foramen magnum: No mass, Chiari malformation, or basilar invagination. Sella: No obvious mass. Paranasal/mastoid sinuses: Imaged portions unremarkable. Skull/ Scalp: No lytic or blastic lesions. No fractures. IMPRESSION: 1. Mild chronic microvascular ischemic changes. 2. No evidence of metastatic disease in this unenhanced study. Signed by: Dr. Tana Delcid M.D. on 2017 9:11 PM Dictated By: TANA DELCID MD 10 Transcribed By: LONDON on 06/21/182110 COPY TO: GABRIELA MUNOZ SEPARATING MACHINE OPERATOR CHEST SINGLE (PORTABLE) 2018-06-21 06:49:00 [place] [address] Patient Name: EMMA MCMAHON MR #: [id number] : 1940 Age/Sex: 78/F Req #: [id number] Adm Physician: TACOS CEJA MD Ordered by: USHA GRANGER NP Report #: [id number] Location: [facility] Room/Bed: [facility] 177-1 Procedure: DX/CHEST SINGLE ( PORTABLE) Exam Date: Exam Time: REPORT STATUS: Signed EXAM: CHEST SINGLE (PORTABLE), AP 1 view INDICATION: Shortness of breath COMPARISON: AP view of the chest June 20, 2018 FINDINGS: LINES/TUBES: None LUNGS: Left lower lobe atelectasis versus consolidation PLEURA: Possible left pleural effusion. HEART AND MEDIASTINUM: Stable appearance BONES AND SOFT TISSUES: No acute findings. IMPRESSION: Left lower lobe atelectasis versus consolidation with suspected adjacent pleural effusion. Signed by: Dr. Fred Winters M.D. on 06/21/2018 6:50 AM Dictated By: FRED WINTERS MD Transcribed By: L[place]ON on 06/21/18649 COPY TO: USHA GRANGER NP CHEST SINGLE (PORTABLE) 2018-06-20 15:52:00 [place] [address] Patient Name: EMMA MCMAHON MR #: [id number] : 1940 Age/Sex: 78/F Req #: [id number] Adm Physician: Ordered by: USHA GRANGER SEPARATING MACHINE OPERATOR Report #: [id number] Location: ER Room/Bed: __ Procedure: [id number] DX/CHEST SINGLE (PORTABLE) Exam Date: 06/20/18 Exam Time: 1540 REPORT STATUS: Signed EXAMINATION: CHEST SINGLE (PORTABLE) INDICATION: COMPARISON: None FINDINGS: AP view TUBES and LINES: None. LUNGS: Lungs are well inflated. Bilateral interstitial edema. Bibasilar atelectasis. Few bilateral calcified granulomas. PLEURA: Possible small left pleural effusion. No pneumothorax. HEART AND MEDIASTINUM: Moderate enlargement of the cardiac silhouette. Atherosclerotic calcifications of the aortic arch. BONES AND SOFT TISSUES: No acute osseous lesion. Soft tissues are unremarkable. UPPER ABDOMEN : No free air under the diaphragm. IMPRESSION: Bilateral interstitial edema. Signed by: Dr. Ramiro Pena M.D. on 2017 3:53 PM Dictated By: RAMIRO PENA MD 1820 Transcribed By: L[place]ON on 06/20/18 6478 COPY TO: USHA GRANGER NP
--- OUTSIDE RECORDS SUMMARY | 2018-07-23 05:33 | XMS REPORT | Clinical Summary ---
Author Author [facility] Organization [facility] Address Unknown Phone Unavailable Care Team Providers Care Management Sme Name Role Phone PCP Unavailable Allergies Active [...] 05/01/2018 Procedure Pass 05/01/2018 Procedure Pass 04/26/2018 [facility] Patricia Parker MD Compression fracture of - Encounter Lea Palm MD body of thoracic vertebra 05/20/2018 Leighton Joens MD (Primary Dx); Ruiz Kelley MD Intentional drug overdose, initial encounter; Congestive heart failure, unspecified HF chronicity, unspecified heart failure type; Intentional opiate overdose, initial encounter; Altered mental status, unspecified altered mental status type; Suicidal behavior with attempted self-injury; Chronic systolic congestive heart failure; Oropharyngeal dysphagia; Hypoxia after 06/07/2017 Family History Medical History Relation Name Comments [...] Treatment Date Type Specialty Care Team Description 06/15/2018 Lab Appointment Lab pt has [employer] FFS 06/15/2018 Office Visit Hematology Betzy Richey, Fellow() [facility] ([facility] [address] [place] [address] 06/18/2018 Appointment Radiology Renal mass biopsy 07/02/2018 Office Visit Urology Ruiz Kelley MD [address] [place] [address] Health Maintenance Due Date Last Done Comments IMM Pneumococcal Age 65 2004 and Up IMM Influenza Seasonal 07/20/2018Jul to December (>/=19 yrs) Procedures Procedure Name Priority Date/Time Associated Diagnosis Comments URIC ACID Routine 05/19/2018 Results for this 5:35 AM CDT procedure are in the results section. BASIC METABOLIC PANEL Routine 05/19/2018 Results for this 5:35 AM CDT procedure are in the results section. BASIC METABOLIC PANEL Routine 05/18/2018 Results for this 4:05 AM CDT procedure are in the results section. BASIC METABOLIC PANEL Routine 05/17/2018 Results for this 4:20 AM CDT procedure are in the results section. BASIC METABOLIC PANEL Routine 05/16/2018 Results for this 4:00 AM CDT procedure are in the results section. CBC Routine 05/15/2018 Results for this 5:20 AM CDT procedure are in the results section. BASIC METABOLIC PANEL Routine 05/15/2018 Results for this 5:20 AM CDT procedure are in the results section. XRAY CHEST 1 VIEW Routine 05/14/2018 Renal mass Results for this 8:41 PM CDT procedure are in the results section. XRAY CHEST 1 VIEW Routine 05/14/2018 Renal mass Results for this 6:26 PM CDT procedure are in the results section. XRAY CHEST 1 VIEW Routine 05/14/2018 Renal mass Results for this 5:08 PM CDT procedure are in the results section. FNA W/IMAGE Routine 05/14/2018 Results for this 4:53 PM CDT procedure are in the results section. PERCUT BIOPSY, ABDOMINAL Routine 05/14/2018 Results for this MASS 4:53 PM CDT procedure are in the results section. CT GUIDANCE CYST ASPER Routine 05/14/2018 Results for this DRAIN 4:53 PM CDT procedure are in the results section. [facility] SURGICAL PATHOLOGY Routine 05/14/2018 Results for this 3:50 PM CDT procedure are in the results section. CT CHEST W CONTRAST Routine 05/14/2018 Renal mass Results for this 10:16 AM CDT procedure are in the results section. PT/INR Routine 05/14/2018 Results for this 4:00 AM CDT procedure are in the results section. BASIC METABOLIC PANEL Routine 05/14/2018 Results for this 4:00 AM CDT procedure are in the results section. [facility] CYTOLOGY Routine 05/14/2018 Results for this 12:00 AM CDT procedure are in the results section. BASIC METABOLIC PANEL Routine 05/13/2018 Results for this 4:31 AM CDT procedure are in the results section. CBC/DIFF STAT 05/12/2018 Results for this 12:03 PM CDT procedure are in the results section. [facility] SURGICAL PATHOLOGY Routine 05/12/2018 Results for this 10:30 AM CDT procedure are in the results section. MULTIPLE MYELOMA FISH Routine 05/12/2018 Results for this PANEL 10:30 AM CDT procedure are in the results section. CHR LEUKEMIA/ LYMPHOMA Routine 05/12/2018 Results for this 10:30 AM CDT procedure are in the results section. BASIC METABOLIC PANEL Routine 05/12/2018 Results for this 4:00 AM CDT procedure are in the results section. XRAY BONE/ SKELETAL Routine 05/11/2018 Compression fracture of Results for this SURVEY COMPLETE 12:04 PM CDT body of thoracic vertebra procedure are in the results section. IMMUNOGLOBULINS Routine 05/11/2018 Results for this 4:55 AM CDT procedure are in the results section. BASIC METABOLIC PANEL Routine 05/11/2018 Results for this 4:55 AM CDT procedure are in the results section. BETA Routine 05/10/2018 Results for this 2-MICROGLOBULIN,URINE 5:03 PM CDT procedure are in the results section. BASIC METABOLIC PANEL Routine 05/10/2018 Results for this 10:00 AM CDT procedure are in the results section. JOHNNY, UR Routine 05/10/2018 Results for this 8:52 AM CDT procedure are in the results section. T PROT, TIMED UR Routine 05/10/2018 Results for this 8:52 AM CDT procedure are in the results section. ELECTROPH, 24HR UR Routine 05/10/2018 Results for this 8:52 AM CDT procedure are in the results section. JOHNNY Routine 05/09/2018 Results for this 11:46 AM CDT procedure are in the results section. T PROTEIN Routine 05/09/2018 Results for this 11:46 AM CDT procedure are in the results section. ELECTROPH, BLD Routine 05/09/2018 Results for this 11:46 AM CDT procedure are in the results section. BASIC METABOLIC PANEL Routine 05/09/2018 Results for this 4:00 AM CDT procedure are in the results section. METANEPH FRAC 24U Routine 05/08/2018 Results for this 4:30 PM CDT procedure are in the results section. CORTISOL, TOTAL Routine 05/08/2018 Results for this 4:15 AM CDT procedure are in the results section. BASIC METABOLIC PANEL Routine 05/08/2018 Results for this 4:15 AM CDT procedure are in the results section. BASIC METABOLIC PANEL Routine 05/07/2018 Results for this 4:40 AM CDT procedure are in the results section. CBC Routine 05/06/2018 Results for this 4:50 AM CDT procedure are in the results section. BASIC METABOLIC PANEL Routine 05/06/2018 Results for this 4:50 AM CDT procedure are in the results section. PERC AUGMENTATION, EACH Routine 05/05/2018 Results for this ADDITIONAL THORACIC OR 11:24 AM CDT procedure are in the LUMBAR (KYPHOPLASTY) results section. PERC AUGMENTATION, EACH Routine 05/05/2018 Results for this ADDITIONAL THORACIC OR 11:24 AM CDT procedure are in the LUMBAR (KYPHOPLASTY) results section. PERC AUGMENTATION, EACH Routine 05/05/2018 Results for this ADDITIONAL THORACIC OR 11:24 AM CDT procedure are in the LUMBAR (KYPHOPLASTY) results section. PERC AUGMENTATION, 1ST Routine 05/05/2018 Results for this THORACIC W/ CAVITY 11:24 AM CDT procedure are in the CREATION (KYPHOPLASTY) results section. [facility] SURGICAL PATHOLOGY Routine 05/05/2018 Results for this 10:15 AM CDT procedure are in the results section. BASIC METABOLIC PANEL Routine 05/05/2018 Results for this 4:00 AM CDT procedure are in the results section. MRI KIDNEY W AND W/O STAT 05/04/2018 Renal mass Results for this CONTRAST 4:54 PM CDT procedure are in the results section. BASIC METABOLIC PANEL Routine 05/04/2018 Results for this 3:59 AM CDT procedure are in the results section. BASIC METABOLIC PANEL Routine 05/03/2018 Results for this 4:09 AM CDT procedure are in the results section. GLUCOSE POC Routine 05/02/2018 Results for this 7:54 PM CDT procedure are in the results section. MRI THORACIC SPINE W/O STAT 05/02/2018 Chronic pain syndrome Results for this CONTRAST 4:50 PM CDT procedure are in the results section. XRAY CHEST 1 VIEW STAT 05/02/2018 Hypoxia Results for this 12:51 PM CDT procedure are in the results section. BASIC METABOLIC PANEL Routine 05/02/2018 Results for this 3:56 AM CDT procedure are in the results section. CT HEAD W/O CONTRAST TENA 05/01/2018 Altered mental status, Results for this 4:22 PM CDT unspecified altered procedure are in the mental status type results section. PT/INR Routine 05/01/2018 Results for this 3:30 AM CDT procedure are in the results section. BASIC METABOLIC PANEL Routine 05/01/2018 Results for this 3:30 AM CDT procedure are in the results section. XRAY SPINE THORACIC 2 TENA 04/30/2018 Compression fracture of Results for this VIEWS 12:35 PM CDT body of thoracic vertebra procedure are in the results section. XRAY SPINE LUMBOSACRAL TENA 04/30/2018 Chronic midline low back Results for this AP-LAT 12:35 PM CDT pain, with sciatica procedure are in the presence unspecified results section. BASIC METABOLIC PANEL Routine 04/30/2018 Results for this 3:30 AM CDT procedure are in the results section. TRANSTHORACIC ECHO (TTE) STAT 04/29/2018 Results for this 8:06 AM CDT procedure are in the results section. VIT D, 25-HYDROXY Routine 04/29/2018 Results for this 4:07 AM CDT procedure are in the results section. CALCITROL, VITD1,25 Routine 04/29/2018 Results for this 4:07 AM CDT procedure are in the results section. INTACT PTH Routine 04/29/2018 Results for this 4:07 AM CDT procedure are in the results section. TROPONIN I Routine 04/29/2018 Results for this 4:07 AM CDT procedure are in the results section. BASIC METABOLIC PANEL Routine 04/29/2018 Results for this 4:07 AM CDT procedure are in the results section. SEQUENTIAL COMPRESSION STAT 04/29/2018 PUMP 12:07 AM CDT INFUSION PUMP Routine 04/29/2018 12:07 AM CDT LOW AIR LOSS (VERSICARE Routine 04/29/2018 P500) WITH SCALE 12:07 AM CDT CONSULT CLINICAL CASE Routine 04/29/2018 MANAGEMENT (RN/SW) 12:07 AM CDT NUTRITION CONSULT FOOD Routine 04/29/2018 PREFERENCE BY DIETITIAN 12:07 AM CDT GLUCOSE POC Routine 04/28/2018 Results for this 5:47 PM CDT procedure are in the results section. U/S RENAL STAT 04/28/2018 Intentional opiate Results for this 1:20 PM CDT overdose, subsequent procedure are in the encounter results section. GLUCOSE POC Routine 04/28/2018 Results for this 8:09 AM CDT procedure are in the results section. XRAY CHEST 1 VIEW Routine 04/28/2018 Hypoxia Results for this 4:29 AM CDT procedure are in the results section. VBG POC Routine 04/28/2018 Results for this 3:59 AM CDT procedure are in the results section. BASIC METABOLIC PANEL Routine 04/28/2018 Results for this 3:50 AM CDT procedure are in the results section. UA CHEMISTRIES STAT 04/27/2018 Results for this 3:00 PM CDT procedure are in the results section. ELECTROLYTES, UR STAT 04/27/2018 Results for this 3:00 PM CDT procedure are in the results section. T PROT/CREA RATIO,UR STAT 04/27/2018 Results for this 3:00 PM CDT procedure are in the results section. TROPONIN I STAT 04/27/2018 Results for this 2:00 PM CDT procedure are in the results section. CONSULT CLINICAL CASE STAT 04/27/2018 MANAGEMENT (RN/SW) 1:30 PM CDT TROPONIN I STAT 04/27/2018 Results for this 6:10 AM CDT procedure are in the results section. CK, TOTAL STAT 04/27/2018 Results for this 6:10 AM CDT procedure are in the results section. XRAY CHEST 2 VIEWS STAT 04/27/2018 Chronic systolic Results for this 4:37 AM CDT congestive heart failure procedure are in the results section. FREE T4 STAT 04/27/2018 Results for this 2:27 AM CDT procedure are in the results section. TSH Routine 04/27/2018 Results for this 2:27 AM CDT procedure are in the results section. MAGNESIUM Routine 04/27/2018 Results for this 2:27 AM CDT procedure are in the results section. LIVER PROFILE Routine 04/27/2018 Results for this 2:27 AM CDT procedure are in the results section. CBC/DIFF Routine 04/27/2018 Results for this 2:27 AM CDT procedure are in the results section. BASIC METABOLIC PANEL Routine 04/27/2018 Results for this 2:27 AM CDT procedure are in the results section. CK, TOTAL STAT 04/27/2018 Results for this 2:27 AM CDT procedure are in the results section. FOLIC ACID STAT 04/27/2018 Results for this 2:27 AM CDT procedure are in the results section. VITAMIN B12 STAT 04/27/2018 Results for this 2:27 AM CDT procedure are in the results section. FERRITIN STAT 04/27/2018 Results for this 2:27 AM CDT procedure are in the results section. IRON PROFILE STAT 04/27/2018 Results for this 2:27 AM CDT procedure are in the results section. XRAY CHEST 1 VIEW STAT 04/26/2018 Intentional drug Results for this 9:52 PM CDT overdose, initial procedure are in the encounter results section. VBG POC Routine 04/26/2018 Results for this 9:37 PM CDT procedure are in the results section. BMP POC Routine 04/26/2018 Results for this 9:36 PM CDT procedure are in the results section. 12 LEAD EKG Routine 04/26/2018 Results for this 9:35 PM CDT procedure are in the results section. LIPASE Routine 04/26/2018 Results for this 9:35 PM CDT procedure are in the results section. PT/INR/PTT STAT 04/26/2018 Results for this 9:35 PM CDT procedure are in the results section. ACETAMINOPHEN STAT 04/26/2018 Results for this 9:35 PM CDT procedure are in the results section. SALICYLATE STAT 04/26/2018 Results for this 9:35 PM CDT procedure are in the results section. LIVER PROFILE STAT 04/26/2018 Results for this 9:35 PM CDT procedure are in the results section. CBC/DIFF STAT 04/26/2018 Results for this 9:35 PM CDT procedure are in the results section. after 06/07/2017 Results * URIC ACID (05/19/2018 5:35 AM) Uric acid 4.5 2.3 - 6.6 mg/dL BT MAIN-STATION 1 Specimen Blood Performing Organization Address [facility] Phone Number MISYS BT MAIN-STATION 1 * BASIC METABOLIC PANEL (05/19/2018 5:35 AM) Only the most recent of 23 results within the time period is included. CO2 30 21 - 31 mmol/L BT MAIN-STATION 1 Chloride 105 98 - 107 mmol/L BT MAIN-STATION 1 Potassium 3.8 3.5 - 5.1 mmol/L BT MAIN-STATION 1 Sodium 143 136 - 145 mmol/L BT MAIN-STATION 1 Glucose 74 70 - 110 mg/dL BT MAIN-STATION 1 Urea Nitrogen 24 7 - 25 mg/dL BT MAIN-STATION 1 Creatinine 1.40 (H) 0.6 - 1.2 mg/dL BT MAIN-STATION 1 Anion Gap 8 BT MAIN-STATION 1 Calcium 8.9 8.6 - 10.3 mg/dL BT MAIN-STATION 1 GFR, Estimated 36 mL/min/1.73 m2 BT MAIN-STATION 1 GFR, Estim, Afr-Am 44 mL/min/1.73 m2 BT MAIN-STATION 1 Specimen Blood Performing Organization Address [facility] Phone Number MISYS BT MAIN-STATION 1 * CBC (05/15/2018 5:20 AM) Only the most recent of 2 results within the time period is included. WBC 5.9 4.5 - 11.0 K/uL BT MAIN-STATION 2 RBC 2.79 (L) 4.20 - 5.40 M/uL BT MAIN-STATION 2 Hemoglobin 8.6 (L) 12.0 - 16.0 g/dL BT MAIN-STATION 2 Hematocrit 27.7 (L) 37.0 - 47.0 % BT MAIN-STATION 2 MCV 99 (H) 82 - 92 fL BT MAIN-STATION 2 MCH 30.8 27.0 - 32.0 pg BT MAIN-STATION 2 MCHC 31.0 (L) 32.0 - 36.0 g/dL BT MAIN-STATION 2 RDW 53.1 (H) 36.4 - 46.3 fL BT MAIN-STATION 2 Platelet 307 150 - 400 K/uL BT MAIN-STATION 2 Mean Platelet Volume 9.4 9.4 - 12.4 fL BT MAIN-STATION 2 Percent NRBC 0.0 BT MAIN-STATION 2 Absolute NRBC 0.00 BT MAIN-STATION 2 Specimen Blood Performing Organization Address City/State/Zipcode Phone Number MISYS BT MAIN-STATION 2 * XRAY CHEST 1 VIEW (05/14/2018 8:41 PM) Only the most recent of 6 results within the time period is included. Impressions Performed At IMPRESSION: SMS 1. Persistent small left pneumothorax. 2. Stable left basilar and lingular opacities likely atelectasis with superimposed small left effusion. Dictated By: Jose Llamas DO, 05/15/2018 6:03 AM I have reviewed the study and agree with the findings in this report. Signed By: Theo Lewis MD, 05/15/2018 8:41 AM Narrative Performed At EXAM: XR CHEST 1 VIEW SMS DATE: 05/14/2018 8:42 PM INDICATION: ptx after [...] By: Theo Lewis MD, 05/15/2018 8:41 AM Performing Organization Address City/State/Zipcode Phone Number SMS * CT GUIDANCE CYST ASPER DRAIN (05/14/2018 4:53 PM) Impressions Performed At IMPRESSION: SMS CT-guided biopsy of left adrenal mass with asymptomatic small left pneumothorax. Plan: CXR now for baseline, then repeat in one hour and again in four hours. Dictated By: Darion Foster MD, 05/14/2018 4:58 PM I have reviewed the study and agree with the findings in this report. Signed By: Jamaica Schuster MD, 05/19/2018 7:35 AM Narrative Performed At Procedure: CT-guided biopsy of left adrenal mass [facility] Date and Time: 05/14/2018 4:53 PM bulldozer press operator: Dr. Darion Foster MD Assistants: Dr. [...] Condition: Stable Disposition: PACU CPT procedure code: 85780, 21888, 17168 S&I code: 00334 DISCUSSION: The prior CT and MRI were [...] mass Date and Time: 05/14/2018 4:53 PM bulldozer press operator: Dr. Darion Foster MD Assistants: Dr. [...] Condition: Stable Disposition: PACU CPT procedure code: 94574, 09768, 63177 S&I code: 77097 DISCUSSION: The prior CT and MRI were [...] By: Jamaica Schuster MD, 05/19/2018 7:35 AM Performing Organization Address City/State/Zipcode Phone Number SMS * PERCUT BIOPSY, ABDOMINAL MASS (05/14/2018 4:53 PM) Impressions Performed At IMPRESSION: SMS CT-guided biopsy of left adrenal mass with asymptomatic small left pneumothorax. Plan: CXR now for baseline, then repeat in one hour and again in four hours. Dictated By: Darion Foster MD, 05/14/2018 4:58 PM I have reviewed the study and agree with the findings in this report. Signed By: Jamaica Schuster MD, 05/19/2018 7:35 AM Narrative Performed At Procedure: CT-guided biopsy of left adrenal mass SMS Date and Time: 05/14/2018 4:53 PM bulldozer press operator: Dr. Darion Foster MD Assistants: Dr. [...] Condition: Stable Disposition: PACU CPT procedure code: 10579, 97180, 85589 S&I code: 25810 DISCUSSION: The prior CT and MRI were [...] mass Date and Time: 05/14/2018 4:53 PM bulldozer press operator: Dr. Darion Foster MD Assistants: Dr. [...] Condition: Stable Disposition: PACU CPT procedure code: 53710, 37524, 92836 S&I code: 79420 DISCUSSION: The prior CT and MRI were [...] By: Jamaica Schuster MD, 05/19/2018 7:35 AM Performing Organization Address City/State/Zipcode Phone Number SMS * FNA W/IMAGE (05/14/2018 4:53 PM) Impressions Performed At IMPRESSION: SMS CT-guided biopsy of left adrenal mass with asymptomatic small left pneumothorax. Plan: CXR now for baseline, then repeat in one hour and again in four hours. Dictated By: Darion Foster MD, 05/14/2018 4:58 PM I have reviewed the study and agree with the findings in this report. Signed By: Jamaica Schuster MD, 05/19/2018 7:35 AM Narrative Performed At Procedure: CT-guided biopsy of left adrenal mass [facility] Date and Time: 05/14/2018 4:53 PM bulldozer press operator: Dr. Darion Foster MD Assistants: Dr. [...] Condition: Stable Disposition: PACU CPT procedure code: 54993, 37657, 80550 S&I code: 54246 DISCUSSION: The prior CT and MRI were [...] mass Date and Time: 05/14/2018 4:53 PM bulldozer press operator: Dr. Darion Foster MD Assistants: Dr. [...] Condition: Stable Disposition: PACU CPT procedure code: 51640, 25366, 43211 S&I code: 44801 DISCUSSION: The prior CT and MRI were [...] By: [place] Schuster MD, 05/19/2018 7:35 AM Performing Organization Address City/State/Zipcode Phone Number SMS * [facility] SURGICAL PATHOLOGY (05/14/2018 3:50 PM) Only the most recent of 3 results within the time period is included. [facility] Surgical Pathology (note) MISYS Name RAJNI BOTELLO Date of 1940 Hospital Number [id number] Location [address] Surgical SURGICAL PATHOLOGY Collected: 05/14/2018 15:50 Received: [...] correlation is suggested. The concurrent FNA specimen ([id number]) shows atypical plasm cells; however these cells are not present in this biopsy. Pertinent Clinical Information Right renal mass and left adrenal mass Gross Description Specimen Material: Left adrenal biopsy The case is received in one part labeled with the patient's name "RAJNI BOTELLO", medical record number and given accession number [id number], and it is accompanied by a requisition form labeled with the same name and accession number. Received in formalin labeled "LEFT ADRENAL BIOPSY" is a 0.5 x 0.5 x 0.2 cm aggregate of multiple red-eid cores of tissue which are submitted entirely in cassettes A1-A2. JOSE SLATER MD Pathology Resident Microscopic Description Performed. Vane [id number] Pathology Resident Electronically Signed Out Ruthie Clifton M.D./[id number] Staff Pathologist Performing Organization Address City/State/Zipcode Phone Number MISYS * CT CHEST W CONTRAST (05/14/2018 10:16 AM) Impressions Performed At IMPRESSION: SMS 1. Right middle lobe 5 mm pulmonary [...] Theo Lewis MD, 05/14/2018 2:15 PM Narrative Performed At EXAM: CT Chest WITH contrast SMS INDICATION: Staging COMPARISON: Abdominal MRI on 05/04/2018. [...] By: Theo Lewis MD, 05/14/2018 2:15 PM Performing Organization Address City/State/Zipcode Phone Number SMS * PT/INR (05/14/2018 4:00 AM) Only the most recent of 2 results within the time period is included. PT 14.6 11.8 - 15.0 Seconds BT MAIN-STATION 3 INR 1.1 BT MAIN-STATION 3 SUGGESTED THERAPEUTIC RANGES: INR 2.0-3.0 for MODERATE INTENSITY ANTICOAGULATION INR 2.5-3.5 for HIGH INTENSITY ANTICOAGULATION Specimen Blood Performing Organization Address City/State/Zipcode Phone Number MISYS BT MAIN-STATION 3 * [facility] CYTOLOGY (05/14/2018) [facility] Cytology (note) MISYS Name RAJNI BOTELLO Date of 1940 Hospital Number [id number] Location [address] Medical Surgical CYTOPATHOLOGY Collected: 05/14/2018 00:00 [...] not correlate with the concurrent core biopsy ([id number]). Please see biopsy report on this patient. Intradepartmental Consultation: Dr. Hema Hart has reviewed the case and concurs with the findings and diagnosis. Electronically Signed Out Ruthie Clifton M.D./[id number] Staff Pathologist Clinical History 78 y/o Female: [...] given to the cytology fellow(s) on 05/15/2018. Performing Organization Address City/State/Zipcode Phone Number MISYS * CBC/DIFF (05/12/2018 12:03 PM) Only the most recent of 3 results within the time period is included. WBC 5.2 4.5 - 11.0 K/uL BT MAIN-STATION 2 RBC 2.97 (L) 4.20 - 5.40 M/uL BT MAIN-STATION 2 Hemoglobin 9.3 (L) 12.0 - 16.0 g/dL BT MAIN-STATION 2 Hematocrit 30.2 (L) 37.0 - 47.0 % BT MAIN-STATION 2 MCV 102 (H) 82 - 92 fL BT MAIN-STATION 2 MCH 31.3 27.0 - 32.0 pg BT MAIN-STATION 2 MCHC 30.8 (L) 32.0 - 36.0 g/dL BT MAIN-STATION 2 RDW 53.6 (H) 36.4 - 46.3 fL BT MAIN-STATION 2 Platelet 330 150 - 400 K/uL BT MAIN-STATION 2 Mean Platelet Volume 8.8 (L) 9.4 - 12.4 fL BT MAIN-STATION 2 Percent NRBC 0.0 BT MAIN-STATION 2 Absolute NRBC 0.00 BT MAIN-STATION 2 Neutrophil 58.5 34.0 - 70.0 % BT MAIN-STATION 2 Lymphocyte 30.6 20.0 - 50.0 % BT MAIN-STATION 2 Monocyte 7.8 5.0 - 12.0 % BT MAIN-STATION 2 Eosinophil 1.9 0.7 - 5.0 % BT MAIN-STATION 2 Basophil 0.6 0.1 - 1.2 % BT MAIN-STATION 2 Pct Immat Gran 0.6 (H) 0.0 - 0.5 BT MAIN-STATION 2 Neutrophil, Abs 3.06 1.56 - 6.13 K/uL BT MAIN-STATION 2 Lymphocyte, Abs 1.60 1.18 - 3.74 K/uL BT MAIN-STATION 2 Monocyte, Abs 0.41 (H) 0.24 - 0.36 K/uL BT MAIN-STATION 2 Eosinophil, Abs 0.10 0.04 - 0.36 K/uL BT MAIN-STATION 2 Basophil, Abs 0.03 0.01 - 0.08 K/uL BT [facility]-STATION 2 Absol Immat Gran 0.03 0.00 - 0.03 K/uL [facility]-STATION 2 Specimen Blood Performing Organization Address City/State/Zipcode Phone Number MISYS [facility]-STATION 2 * MULTIPLE MYELOMA FISH PANEL (05/12/2018 10:30 AM) MM Specimen Type Comment: LABORATORY (note) [facility] BONE MARROW [facility] MM Cells Counted Comment: LABORATORY (note) [facility] OF 100/Probe ELISE MM Cells Analyzed Comment: LABORATORY (note) [facility] OF 100/Probe ELISE MM FISH Result Comment: LABORATORY (note) [facility]POR[facility] OF NUCLEI POSITIVE FOR FGFR3-IGH [place]ISE FUSION, THREE 1Q SIGNALS, AND MONOSOMY 13; ADDITIONAL SIGNALS WERE ALSO OBSERVED CONSISTENT WITH ENDOREDUPLICATION RESULTING IN A TETRAPLOID CLONE MM FISH Interpretation Comment: LABORATORY (note) [facility]POR[facility] OF MULTIPLE MYELOMA RELATED CLONE [facility] DETECTED The multiple myeloma interphase fluorescence in situ hybridization (FISH) panel analysis of CD138+ enriched plasma cells was positive for two FGFR3-IGH fusion signals, three 1q signals, and loss of one 13q14 and one 13q34 signal consistent with monosomy 13. There were no cells with CCND1-IGH or IGH-MAF fusions. No deletion of TP53 was observed. 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 The translocation 4;14, resulting in FGFR3-IGH fusion, is reported to have a poor prognosis in MM. Extra 1q has been associated with advanced disease and adverse outcome. Loss of the tumor suppressor genes at 13q is a recurrent findingsin MM. SPECIFIC PROBE RESULTS: FGFR3/IGH: ABNORMAL nuc dwight 4p16(TIPL4f7),14q32(IGHx3)(FGF R3 con IGHx2)[18/100]/. 4p16(DZYV2a9),14q32(IGHx6)(FGF R3 con IGHx4)[52/100] CCND1/IGH: ABNORMAL (NO FUSION) nuc dwight 11q13(ORBY4s8),14q32(IGHx3)[16 100]/. 11q13(CZWU9u6),14q32(IGHx6)[48 /100] IGH/MAF: ABNORMAL (NO FUSION) nuc dwight 14q32(IGHx3),16q23(MAFx2)[24 00]/. 14q32(IGHx6),16q23(MAFx4)[53/ 00] 1p36/1q21: ABNORMAL nuc dwight 1p36.3(SRDx2),1q21(SJP6Tc5)[26 100]/. 1p36.3(SRDx4),1q21(GGW2Th3)[48 /100] 13q: ABNORMAL nuc dwight 13q14(URYA0l6),13q34(KVOX0t7)[ 50/100] TP53: ABNORMAL nuc dwgiht 17p13(TP53x4)[51/100] . CEP 7/9/15: ABNORMAL . nuc dwight 7cen(D7Z1x4),9cen(D9Z4x4),15ce n(O22O8y0)[100] This analysis is not quantitative. Results obtained using CD138+ plasma cells are NOT support representative of the percentage of abnormal plasma cells in the aspirate. FISH analysis is limited to abnormalities detectable by the specific probes included in the study. Results should be interpreted within the context of a full hematologic and clinical evaluation. This test was developed and its performance characteristics determined by [employer] ([place]). It has not been cleared or approved by the U.S. Food and Drug Administration. The FDA has determined that such clearance or approval is not necessary. MM Director Review Comment: LABORATORY (note) CORPORATION Nabila Wall, PhD, DABMG [facility] Specimen Marrow Performing Organization Address City/[facility] Phone Number JULIAN LABOR[facility] [place] OF [address] [place], [place] [id number] [facility] 145 * CHR LEUKEMIA/ LYMPHOMA (05/12/2018 10:30 AM) Specimen Type Comment: LABORATORY (note) [facility] BONE MARROW ELISE Cells Counted 20 LABORATORY [place] ELISE Cells Analyzed 20 LABORATORY [place] ELISE Cells Karyotyped 2 LABORATORY [place] ELISE GTG Band Resol 400 LABORATORY [place] ELISE Cytogenic Result Comment: LABORATORY (note) [facility] OF 46,XX[20] ELISE Interpretation Comment: LABORATORY (note) [facility] NORMAL FEMALE KARYOTYPE ELISE Cytogenetic analysis of unstimulated cultures revealed a [...] 20 cell analyses. A FISH panel (test #[id number]) may be effectively used in low mitotic multiple myeloma, for example, to detect high incidence, prognosis-related alterations. . A test option for a whole genome SNP microarray is also available (test #[id number]) that can resolve genomic imbalance at a level of sensitivity over 200 times cytogenetic resolution. This testing can be performed from the current remaining sample, if available. Call x [phone]. Director Review: Comment: LABORATORY (note) CORPORATION Janel Hernandez, PhD [facility] Specimen Marrow Performing Organization Address City/[facility]/Zipcode Phone Number JULIAN [facility] OF [address] [place], [place] [id number] [facility] 145 * XRAY BONE/ SKELETAL SURVEY COMPLETE (05/11/2018 12:04 PM) Impressions Performed At IMPRESSION: SMS 1. Severe bone demineralization without discrete myelomatous lesion. 2. Status post kyphoplasty of T9, T12, L1 and L2. Dictated By: Apple Tirado MD, 05/11/2018 1:43 PM I have reviewed the study and agree with the findings in this report. Signed By: Sal Dillard MD, 05/11/2018 1:51 PM Narrative Performed At XRAY BONE/ SKELETAL SURVEY COMPLETE: 05/11/2018 12:05 PM SMS PROCEDURE 16 views of the axial and [...] By: Sal Dillard MD, 05/11/2018 1:51 PM Performing Organization Address City/State/Zipcode Phone Number SMS * IMMUNOGLOBULINS (05/11/2018 4:55 AM) IgG 219.2 (L) 635 - 1,741 mg/dL BT MAIN-STATION 1 IgA >7000.0 (H) 66 - 433 mg/dL BT MAIN-STATION 1 IgM <20.0 (L) 45 - 281 mg/dL BT MAIN-STATION 3 Performing Organization Address [facility] Phone Number JULIAN BT MAIN-STATION 1 BT MAIN-STATION 3 * BETA 2-MICROGLOBULIN,URINE (05/10/2018 5:03 PM) Beta2 Microglob,Ur [address] LABORATORY Reference range: 0 to 300 CORPORATION OF Unit: ug/L ELISE (note) Results verified by repeat testing (H) Specimen Urine Performing Organization Address [facility] Phone Number HItviewsDIANA [facility] OF [address] [facility] [place] [address] ELISE 145 * JOHNNY, UR (05/10/2018 8:52 AM) JOHNNY, Ur Electronically signed out by: SHAYNE Perkins M.D.,PhD./[id number] IMMUNOLOGY [id number] (note) Interpretation: There is a major monoclonal peak in the gamma region, identified by immunofixation as lambda Bence Lozada protein 2.43 g/day). There is a barely visible monoclonal peak in the gamma region, which corresponds to the monoclonal protein in the serum. This peak has been identified as IgA lambda. JOHNNY, Ur Volume 1,025 mL BT DIAGNOSTIC IMMUNOLOGY Performing Organization Address [facility] Phone Number JULIAN DIAGNOSTIC IMMUNOLOGY * ELECTROPH, 24HR UR (05/10/2018 8:52 AM) Volume 1,025 mL MAIN-STATION 2 Protein, Ur 4.70 g/day BT DIAGNOSTIC IMMUNOLOGY Comment Electronically signed out by: SHAYNE DIAGNOSTIC Gale Perkins,PhD./[id number] IMMUNOLOGY [id number] (note) Interpretation: There is a major monoclonal peak in the gamma region, identified by immunofixation as lambda Bence Lozada protein (2.43 g/day). There is a barely visible monoclonal peak in the gamma region, which corresponds to the monoclonal protein in the serum. This peak has been identified as IgA lambda. Specimen Urine Performing Organization Address [facility] Phone Number HItviewsDIANA MAIN-STATION 2 DIAGNOSTIC IMMUNOLOGY * T PROT, TIMED UR (05/10/2018 8:52 AM) T Prot (Period) 24 hrs BT DIAGNOSTIC IMMUNOLOGY T Prot (Volume) 1,025 mL BT DIAGNOSTIC IMMUNOLOGY T Prot, Ur 4.6 g/L BT MAIN-STATION 1 T Prot(Calculated) 4,715 mg/24 Hr BT DIAGNOSTIC IMMUNOLOGY Performing Organization Address [facility] Phone Number [facility] BT MAIN-STATION 1 * T PROTEIN (05/09/2018 11:46 AM) T Protein 7.2 6.0 - 8.3 g/dL BT MAIN-STATION 1 Performing Organization Address [facility] Phone Number [facility] BT MAIN-STATION 1 * JOHNNY (05/09/2018 11:46 AM) JOHNNY Electronically signed out by: SHAYNE DIAGNOSTIC Gale Perkins,PhD./[id number] IMMUNOLOGY [id number] (note) Interpretation: There are 2 monoclonal peaks in the gamma region. These have been identified by immunofixation as IgA lambda, at a concentration of 3.64 g/dl. Performing Organization Address [facility] Phone Number [facility] * ELECTROPH, BLD (05/09/2018 11:46 AM) Protein 7.2 g/dL BT DIAGNOSTIC IMMUNOLOGY Comment Electronically signed out by: SHAYNE DIAGNOSTIC Gale Perkins,PhD./[id number] IMMUNOLOGY [id number] (note) Interpretation: There are 2 monoclonal peaks in the gamma region. These have been identified by immunofixation as IgA lambda, at a concentration of 3.64 g/dl. Performing Organization Address [facility] Phone Number HItviewsYS DIAGNOSTIC IMMUNOLOGY * METANEPH FRAC 24U (05/08/2018 4:30 PM) Normetan Ur 360 LABORATORY Reference range: Undefined CORPORATION OF Unit: ug/L ELISE Normetan 24U 360 LABORATORY Reference range: 82 to 500 CORPORATION OF Unit: ug/24 hr ELISE (note) (Hypertensive) >17 years 11 months: 110 - 1050 Metanephrine U 71 LABORATORY Reference range: Undefined CORPORATION OF Unit: ug/L ELISE Metanephrine 24U 71 LABORATORY Reference range: 45 to 290 CORPORATION OF Unit: ug/24 hr ELISE (note) (Hypertensive) >17 years 11 months: 35 - 460 URINE VOLUME 1,000 LABORATORY [employer] VOLUME UNITS MLS LABORATORY [place] OF [employer] Specimen Urine Performing Organization Address City/State/Zipcode Phone Number JULIAN [employer] OF [address] [place] [id number] EL[place] 145 * CORTISOL, TOTAL (05/08/2018 4:15 AM) Cortisol, Total 5.9 3.44 - 22.45 mcg/dL BT MAIN-STATION 1 Specimen Blood Performing Organization Address City/State/[facility] Phone Number JULIAN BT MAIN-STATION 1 * PERC AUGMENTATION, EACH ADDITIONAL THORACIC OR LUMBAR (KYPHOPLASTY) (2017 11:24 AM) Only the most recent of 3 results within the time period is included. Narrative Performed At Procedure: T9, T12, L1, and L2 Vertebral Augmentation SMS Date and Time: 05/05/2018 11:24 AM History:Chronic back pain, multilevel thoracolumbar compression fractures Date and Time: 05/05/2018 11:24 AM bulldozer press operator: Dr. Anil Richey MD Assistants: Brenden [...] Implants/Grafts: PMMA Blood administered: None CPT codes: 06549, 95975 x3 Technique: Following informed written consent, patient was placed in a prone position on the angiography table. According to universal protocol, preprocedural time-out was performed with team members agreeing on patient identity, correct site and procedure to be done. The skin was clean, prepped and draped in the usual sterile fashion. Endocrinology Specialist images were obtained. Local and periosteal [...] A "PRELIMINARY" report was made available via [employer] at the time of dictation by the [...] fractures Date and Time: 05/05/2018 11:24 AM bulldozer press operator: Dr. Anil Richey MD Assistants: Brenden [...] Implants/Grafts: PMMA Blood administered: None CPT codes: 99825, 02998 x3 Technique: Following informed written consent, patient was placed in a prone position on the angiography table. According to universal protocol, preprocedural time-out was performed with team members agreeing on patient identity, correct site and procedure to be done. The skin was clean, prepped and draped in the usual sterile fashion. Endocrinology Specialist images were obtained. Local and periosteal anesthesia was injected and conscious sedation was administered. Then the T9, T12, and L1 vertebral bodies were accessed under fluoroscopic guidance using a right transpedicular approach. The L2 vertebral body was accessed under fluoroscopic guidance using a left transpedicular approach. Cavity creation was performed using a [place] coaxial needle guide and stylet followed by balloon dilatation. Bone fragment samples from each vertebral body level was placed in separately labeled formalin and submitted to pathology for further evaluation. Balloon rupture through the superior endplate of T9 was noted. Then under fluoroscopic guidance, [place] HV PMMA was injected into the vertebral [...] A "PRELIMINARY" report was made available via [employer] at the time of dictation by the resident indicated below. If described as "FINALIZED" it indicates the attending/staff radiologist below has reviewed the images and agrees with the report. Dictated By: Brenden Damico MD, 05/06/2018 11:09 AM I have reviewed the study and agree with the findings in this report. Signed By: Anil Richey MD, 05/21/2018 2:13 PM Performing Organization Address City/State/Zipcode Phone Number [facility] * PERC AUGMENTATION, 1ST THORACIC W/ CAVITY CREATION (KYPHOPLASTY) (05/05/2018 11:24 AM) Narrative Performed At Procedure: T9, T12, L1, and L2 Vertebral Augmentation [facility] Date and Time: 05/05/2018 11:24 AM History:Chronic back pain, multilevel thoracolumbar compression fractures Date and Time: 05/05/2018 11:24 AM bulldozer press operator: Dr. Anil Richey MD Assistants: Brenden [...] Implants/Grafts: PMMA Blood administered: None CPT codes: 98336, 38903 x3 Technique: Following informed written consent, patient was placed in a prone position on the angiography table. According to universal protocol, preprocedural time-out was performed with team members agreeing on patient identity, correct site and procedure to be done. The skin was clean, prepped and draped in the usual sterile fashion. Endocrinology Specialist images were obtained. Local and periosteal anesthesia was injected and conscious sedation was administered. Then the T9, T12, and L1 vertebral bodies were accessed under fluoroscopic guidance using a right transpedicular approach. The L2 vertebral body was accessed under fluoroscopic guidance using a left transpedicular approach. Cavity creation was performed using a [place] coaxial needle guide and stylet followed by balloon dilatation. Bone fragment samples from each vertebral body level was placed in separately labeled formalin and submitted to pathology for further evaluation. Balloon rupture through the superior endplate of T9 was noted. Then under fluoroscopic guidance, [place] HV PMMA was injected into the vertebral [...] A "PRELIMINARY" report was made available via [employer] at the time of dictation by the [...] fractures Date and Time: 05/05/2018 11:24 AM bulldozer press operator: Dr. Anil Richey MD Assistants: Brenden [...] Implants/Grafts: PMMA Blood administered: None CPT codes: 42254, 81029 x3 Technique: Following informed written consent, patient was placed in a prone position on the angiography table. According to universal protocol, preprocedural time-out was performed with team members agreeing on patient identity, correct site and procedure to be done. The skin was clean, prepped and draped in the usual sterile fashion. Endocrinology Specialist images were obtained. Local and periosteal anesthesia was injected and conscious sedation was administered. Then the T9, T12, and L1 vertebral bodies were accessed under fluoroscopic guidance using a right transpedicular approach. The L2 vertebral body was accessed under fluoroscopic guidance using a left transpedicular approach. Cavity creation was performed using a [employer] coaxial needle guide and stylet followed by balloon dilatation. Bone fragment samples from each vertebral body level was placed in separately labeled formalin and submitted to pathology for further evaluation. Balloon rupture through the superior endplate of T9 was noted. Then under fluoroscopic guidance, [place] HV PMMA was injected into the vertebral [...] A "PRELIMINARY" report was made available via [employer] at the time of dictation by the resident indicated below. If described as "FINALIZED" it indicates the attending/staff radiologist below has reviewed the images and agrees with the report. Dictated By: Brenden Damico MD, 05/06/2018 11:09 AM I have reviewed the study and agree with the findings in this report. Signed By: Anil Richey MD, 05/21/2018 2:13 PM Performing Organization Address City/State/Zipcode Phone Number SMS * MRI KIDNEY W AND W/O CONTRAST (05/04/2018 4:54 PM) Impressions Performed At IMPRESSION: SMS Evaluation is limited by motion artifacts. 1. [...] Med Chan MD, 05/05/2018 9:54 AM Narrative Performed At EXAM: MR Abdomen WITHOUT and WITH Contrast SMS INDICATION: renal mass COMPARISON: Renal ultrasound from 04/28/2018 TECHNIQUE: Multiplanar and multisequence imaging was performed of the abdomen without and with contrast. T1-weighted, T2-weighted images, T1-weighted in and [id number], and Diffusion weighted images. Dynamic, post gadolinium [...] contrast. T1-weighted, T2-weighted images, T1-weighted in and [id number], and Diffusion weighted images. Dynamic, post gadolinium [...] By: Med Chan MD, 05/05/2018 9:54 AM Performing Organization Address City/State/Zipcode Phone Number SMS * GLUCOSE POC (05/02/2018 7:54 PM) Only the most recent of 3 results within the time period is included. Glucose POC 117 (H) 74 - 106 mg/dL BT MAIN-STATION 1 Performing Organization Address City/State/Zipcode Phone Number MISYS BT MAIN-STATION 1 * MRI THORACIC SPINE W/O CONTRAST (05/02/2018 4:50 PM) Impressions Performed At IMPRESSION: SMS 1. Multiple osteoporotic compression fractures with associated [...] Rudi Nunes MD, 05/03/2018 5:53 PM Narrative Performed At Exam: Thoracic spine MRI without with IV contrast SMS History: Thoracic compression fracture, pre-kyphoplasty planning Comparison: [...] By: Rudi Nunes MD, 05/03/2018 5:53 PM Performing Organization Address City/State/Zipcode Phone Number SMS * CT HEAD W/O CONTRAST (05/01/2018 4:22 PM) Impressions Performed At IMPRESSION: SMS No acute abnormalities. Chronic findings: Generalized age-related cerebral volume loss. Mild supratentorial white matter microvascular ischemic changes. Signed By: Pauline Poewrs MD, 05/01/2018 11:39 PM Narrative Performed At Exam : Head CT without contrast SMS History: psychosis, eval for any structural lesions [...] By: Pauline Powers MD, 05/01/2018 11:39 PM Performing Organization Address City/State/Zipcode Phone Number SMS * XRAY SPINE LUMBOSACRAL AP-LAT (04/30/2018 12:35 PM) Impressions Performed At IMPRESSION: SMS 1. Age-indeterminate compression fractures of L1, L2, and L3. 2. Diffuse demineralization Dictated By: Patience Wooten DO, 04/30/2018 4:25 PM I have reviewed the study and agree with the findings in this report. Signed By: Sal Dillard MD, 05/01/2018 9:05 AM Narrative Performed At x-ray lumbar (3 views) SMS HISTORY: back pain, compression fracture COMPARISON: None [...] By: Sal Dillard MD, 05/01/2018 9:05 AM Performing Organization Address [facility] Phone Number SMS * XRAY SPINE THORACIC 2 VIEWS (04/30/2018 12:35 PM) Impressions Performed At IMPRESSION: SMS 1. No acute osseous abnormality. 2. Compression fractures noted at T7, T10, L2. 3. Diffuse demineralization Dictated By: Patience Wooten DO, 04/30/2018 2:45 PM I have reviewed the study and agree with the findings in this report. Signed By: Alphonso Correa DO, 04/30/2018 4:13 PM Narrative Performed At AP and Lateral views of the thoracolumbar spine. X-ray thoracic (2 SMS views), x-ray lumbar (3 views) HISTORY: back [...] By: Alphonso Correa DO, 04/30/2018 4:13 PM Performing Organization Address City/State/Zipcode Phone Number SMS * TRANSTHORACIC ECHO (TTE) (04/29/2018 8:06 AM) TRANSTHORACIC ECHO (TTE) Transthoracic [facility] Echo Report RAJNI BOTELLO Age: 78 Gender: F : 1940 Exam Date: 04/29/2018 08:06 Exam Location: [facility] Echo Ordering Phys: LEIGHTON JONES Referring Phys: Reading Phys: Alexus Nick Fellow Phys: Fellow Phys: Office Services Assistant: Aiden Jackson Reason For Exam: Indications: Dyspnea, unspecified ICD-9 Codes: R06.00 Exam Type: TRANSTHORACIC ECHO (TTE) Procedure CPT: 49512 Addtional CPT: Ht (in): 61 BSA: 1.49 [...] E to LV E' Septal Ratio 19.4 Performing Organization Address [facility] HospitalJammitfl Phone Number SMS * VIT D, 25-HYDROXY (04/29/2018 4:07 AM) Vit D, 25-Hydroxy 21.4 (L) 30 - 100 ng/mL BT DIAGNOSTIC Comment: IMMUNOLOGY Vitamin D deficiency has been defined by the [place] of Medicine and Endocrine Society guideline as a level of serum 25-OH Vitamin D less than 20 ng/mL. The Endocrine Society further defines Vitamin D insufficiency as a level between 21 and 29 ng/mL and sufficiency as a level between 30 and 100 ng/mL. Performing Organization Address [facility] HospitalJammitfl Phone Number [employer] DIAGNOSTIC IMMUNOLOGY * CALCITROL, VITD1,25 (04/29/2018 4:07 AM) Calcitrol 13.9 LABORATORY Reference range: 19.9 to 79.3 CORPORATION OF Unit: pg/mL ELISE (L) Performing Organization Address [facility] Hospitalcofl Phone Number [employer] [facility] CORPORATION OF [address] [facility] [place] [address] ELISE 145 * INTACT PTH (04/29/2018 4:07 AM) Intact PTH 39.20 8.7 - 77.1 pg/mL BT MAIN-STATION 3 Performing Organization Address [facility]/[employer]/[facility] HospitalMoolta Phone Number [employer] BT MAIN-STATION 3 * TROPONIN I (04/29/2018 4:07 AM) Only the most recent of 3 results within the time period is included. Troponin I 0.26 (H) <0.04 ng/mL BT MAIN-STATION 1 Specimen Blood Performing Organization Address City/[facility] Phone Number MISYS BT MAIN-STATION 1 * U/S RENAL (04/28/2018 1:20 PM) Impressions Performed At IMPRESSION: SMS Approximately 9.2 cm complex mass with cystic spaces, extending from the right renal inferior pole, concerning for renal cell carcinoma. Recommend further evaluation with renal mass protocol CT or MRI. Increased renal parenchymal echogenicity, suggestive of medical renal disease. Signed By: Renato Garnett MD, 04/28/2018 1:37 PM Narrative Performed At EXAM: Renal Ultrasound SMS INDICATION: darien, eval for hydro COMPARISON: None [...] By: Renato Garnett MD, 04/28/2018 1:37 PM Performing Organization Address City/[facility] HospitalcoIForem Phone Number SMS * VBG POC (04/28/2018 3:59 AM) Only the most recent of 2 results within the time period is included. pH, Hao POC 7.30 (L) 7.33 - 7.43 BT MAIN-STATION 1 pCO2, Hao POC 55.4 (H) 38.0 - 50.0 mm Hg BT MAIN-STATION 1 pO2, Hao POC 18 (L) 50 - 75 mm Hg BT MAIN-STATION 1 Base Excess, Hao POC 0 mmol/L BT MAIN-STATION 1 HCO3, Hao POC 27.3 (H) 22.0 - 26.0 mmol/L BT MAIN-STATION 1 % Sat, Hao POC 22 (L) 60 - 85 % BT MAIN-STATION 1 Lactic Acid, Hao POC 1.11 0.4 - 2.0 mmol/L BT MAIN-STATION 1 TCO2, HAO POC 29 21 - 32 mmol/L BT MAIN-STATION 1 Performing Organization Address [facility]/[employer] Phone Number MISYS BT MAIN-STATION 1 * UA CHEMISTRIES (04/27/2018 3:00 PM) Color Yellow BT MAIN-STATION 3 Clarity Clear BT MAIN-STATION 3 Spec [place] 1.015 1.001 - 1.035 BT MAIN-STATION 3 pH 6.0 5 - 8 BT MAIN-STATION 3 Protein 3+ (A) NEG BT MAIN-STATION 3 Glucose Negative NEG BT MAIN-STATION 3 Ketone Negative NEG BT MAIN-STATION 3 Bilirubin Negative NEG BT MAIN-STATION 3 Nitrate Negative NEG BT MAIN-STATION 3 Urobilinogen <1.0 0.2 - 1.0 EU/dL BT MAIN-STATION 3 Leukocyte Negative NEG BT MAIN-STATION 3 Blood 1+ (A) NEG BT MAIN-STATION 3 RBC 5 (H) 0 - 4 /HPF BT MAIN-STATION 3 WBC 2 0 - 5 /HPF BT MAIN-STATION 3 Epithelial Cell <1 /HPF BT MAIN-STATION 3 Mucous Present BT MAIN-STATION 3 Performing Organization Address [facility]/[employer] Phone Number MISYS BT MAIN-STATION 3 * T PROT/CREA RATIO,UR (04/27/2018 3:00 PM) Creatinine, Ur 84.5 20 - 320 mg/dL BT MAIN-STATION 1 T Prot, Ur 5.69 g/L BT MAIN-STATION 1 T Prot/Crea Ratio,Ur 6.73 (H) 0.0 - 0.5 BT MAIN-STATION 1 Specimen Urine Performing Organization Address City/[facility] Phone Number MISYS MAIN-STATION 1 * ELECTROLYTES, UR (04/27/2018 3:00 PM) Sodium, Ur 34 (L) 40 - 220 mmol/L BT MAIN-STATION 1 Potassium, Ur 49 25 - 125 mmol/L BT MAIN-STATION 1 Chloride, Ur 59 (L) 110 - 250 mmol/L BT MAIN-STATION 1 Performing Organization Address City/[facility] Phone Number MISYS MAIN-STATION 1 * CK, TOTAL (04/27/2018 6:10 AM) Only the most recent of 2 results within the time period is included. CK, Total 56 30 - 223 U/L BT MAIN-STATION 1 Comment: CKMB not performed if CK <100, if CKMB is required, please notify laboratory immediately. Specimen Blood Performing Organization Address [facility] Phone Number HItviewsYS MAIN-STATION 1 * XRAY CHEST 2 VIEWS (04/27/2018 4:37 AM) Impressions Performed At IMPRESSION: SMS 1. Lateral view not obtained as the [...] Lucero Winters MD, 04/27/2018 5:20 AM Narrative Performed At EXAMINATION: XRAY CHEST 1 VIEWS, Frontal SMS INDICATION: Aspiration COMPARISON: Chest radiographs 04/26/2018. FINDINGS: [...] By: Lucero Winters MD, 04/27/2018 5:20 AM Performing Organization Address [facility] Phone Number SMS * TSH (04/27/2018 2:27 AM) TSH 1.29 0.57 - 3.74 uIU/mL BT MAIN-STATION 1 Performing Organization Address [facility] Phone Number MISYS BT MAIN-STATION 1 * FREE T4 (04/27/2018 2:27 AM) Free T4 0.72 0.61 - 1.18 ng/dl BT MAIN-STATION 1 Comment: females: 1st Trimester-0.52-1.10 ng/dL 2nd Trimester=0.45-0.99 ng/dL 3rd Trimester=0.48-0.95 ng/dL Performing Organization Address [facility] Phone Number MISYS BT MAIN-STATION 1 * FOLIC ACID (04/27/2018 2:27 AM) Folic Acid 13.0 5.9 - 24.8 ng/mL BT MAIN-STATION 1 Specimen Blood Performing Organization Address [facility] Phone Number MISYS BT MAIN-STATION 1 * FERRITIN (04/27/2018 2:27 AM) Ferritin 34.30 11.0 - 306.8 ng/mL BT MAIN-STATION 1 Specimen Blood Performing Organization Address [facility] Phone Number MISYS BT MAIN-STATION 1 * VITAMIN B12 (04/27/2018 2:27 AM) Vitamin B12 235 211 - 911 pg/mL BT MAIN-STATION 1 Specimen Blood Performing Organization Address [facility] Phone Number MISYS BT MAIN-STATION 1 * MAGNESIUM (04/27/2018 2:27 AM) Magnesium 2.5 1.9 - 2.7 mg/dL BT MAIN-STATION 1 Performing Organization Address [facility] Phone Number MISYS BT MAIN-STATION 1 * LIVER PROFILE (04/27/2018 2:27 AM) Only the most recent of 2 results within the time period is included. T Protein 7.2 6.0 - 8.3 g/dL BT MAIN-STATION 1 Albumin 2.1 (L) 3.7 - 5.3 g/dL BT MAIN-STATION 1 T Bilirubin 0.3 0.2 - 1.2 mg/dL BT MAIN-STATION 1 Alk Phos 103 34 - 104 U/L BT MAIN-STATION 1 AST 21 13 - 39 U/L BT MAIN-STATION 1 ALT 10 7 - 52 U/L BT MAIN-STATION 1 D Bilirubin 0.4 (H) 0.0 - 0.2 mg/dL BT MAIN-STATION 1 Performing Organization Address [facility] Phone Number MISYS BT MAIN-STATION 1 * IRON PROFILE (04/27/2018 2:27 AM) Iron 34 (L) 50 - 212 ug/dL BT MAIN-STATION 1 TIBC 193 (L) 250 - 450 ug/dL BT MAIN-STATION 1 % Iron Sat 18 % BT MAIN-STATION 1 Specimen Blood Performing Organization Address [facility] Phone Number MISYS BT MAIN-STATION 1 * BMP POC (04/26/2018 9:36 PM) CO2 POC 26 21 - 32 mmol/L BT MAIN-STATION 1 Chloride POC 101 98 - 107 mmol/L BT MAIN-STATION 1 Potassium POC 4.0 3.50 - 5.10 mmol/L BT MAIN-STATION 1 Sodium POC 138 136 - 145 mmol/L BT MAIN-STATION 1 Glucose POC 104 74 - 106 mg/dL BT MAIN-STATION 1 Urea Nitrogen POC 22 (H) 7 - 18 mg/dL BT MAIN-STATION 1 Creatinine POC 1.6 (H) 0.6 - 1.3 mg/dL BT MAIN-STATION 1 Calcium Ionized POC 1.13 (L) 1.15 - 1.29 mmol/L BT MAIN-STATION 1 Hemoglobin POC 11.6 (L) 12.0 - 16.0 g/dL BT MAIN-STATION 1 Hematocrit POC 34.0 (L) 37.0 - 47.0 % BT MAIN-STATION 1 GFR, Estimated 31 mL/min/1.73 m2 BT MAIN-STATION 1 GFR, Estim, Afr-Am 38 mL/min/1.73 m2 BT MAIN-STATION 1 Performing Organization Address [facility] Phone Number MISYS BT MAIN-STATION 1 * 12 LEAD EKG (04/26/2018 9:35 PM) 12 LEAD EKG FOR [facility] Test Date: 2018-04-26 Pat Name: RAJNI BOTELLO Department: Room: Gender: 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 Requested By: Order Number: [id number] MD: Gretta Rm Measurements Intervals [place] Rate: 76 P: 73 IN: 182 QRS: 20 QRSD: 94 T: 32 QT: 403 QTc: 454 Interpretive Statements SINUS RHYTHM Electronically Signed On 04-26-18 21:37:41 CDT by Gretta Rm Performing Organization Address [facility] Phone Number [facility] * SALICYLATE (04/26/2018 9:35 PM) Salicylate <2.5 (L)Comment: Test 2.8 - 30 mg/dL BT MAIN-STATION 1 performed on [id number] using EMIT Immunoassay Specimen Blood Performing Organization Address [facility] Phone Number MISYS BT MAIN-STATION 1 * PT/INR/PTT (04/26/2018 9:35 PM) PT 14.2 11.8 - 15.0 Seconds BT MAIN-STATION 3 INR 1.1 BT MAIN-STATION 3 SUGGESTED THERAPEUTIC RANGES: INR 2.0-3.0 for MODERATE INTENSITY ANTICOAGULATION INR 2.5-3.5 for HIGH INTENSITY ANTICOAGULATION PTT 27.4 23.6 - 36.4 Seconds BT MAIN-STATION 3 Specimen Blood Performing Organization Address [facility] Phone Number MISYS BT MAIN-STATION 3 * LIPASE (04/26/2018 9:35 PM) Lipase 10 (L) 11 - 82 U/L BT MAIN-STATION 1 Performing Organization Address [facility] Phone Number MISYS BT MAIN-STATION 1 * ACETAMINOPHEN (04/26/2018 9:35 PM) Acetaminophen <10.00 (L)Comment: Test 10 - 30 ug/mL BT MAIN-STATION 1 performed on [id number] using EMIT Immunoassay Specimen Blood Performing Organization Address [facility] Phone Number MISYS BT MAIN-STATION 1 after 06/07/2017
== END 2018-06-25 11:10 | DRG 193 ==
LOC: ER 14:33 → ERHOLD 16:54 → IMCU 19:18 → OBSVTOIN 06-22 12:55 → MED/SURG 06-23 15:34
PROVIDERS: ADMIT Internal Medicine; ATTEND Internal Medicine
PROC: 30233N1 Transfusion of Nonautologous Red Blood Cells into Peripheral Vein, Percutaneous Approach (ICD-10-PCS; principal; 2018-06-21)
DX: J18.0 Bronchopneumonia, unspecified organism (principal); I50.31 Acute diastolic (congestive) heart failure; N17.9 Acute kidney failure, unspecified; N39.0 Urinary tract infection, site not specified; C64.9 Malignant neoplasm of unspecified kidney, except renal pelvis; C90.00 Multiple myeloma not having achieved remission; I13.0 Hypertensive heart and chronic kidney disease with heart failure and stage 1 through stage 4 chronic kidney disease, or unspecified chronic kidney disease; A04.72 Enterocolitis due to Clostridium difficile, not specified as recurrent; F41.9 Anxiety disorder, unspecified; K21.9 Gastro-esophageal reflux disease without esophagitis; R13.10 Dysphagia, unspecified; E87.6 Hypokalemia; E27.9 Disorder of adrenal gland, unspecified; R16.0 Hepatomegaly, not elsewhere classified; R91.8 Other nonspecific abnormal finding of lung field; N18.9 Chronic kidney disease, unspecified; Z66 Do not resuscitate; R09.02 Hypoxemia; D63.0 Anemia in neoplastic disease
CPT/HCPCS: 36415; 36430; 36600; 70450; 71045; 74176; 80048; 80053; 81001; 82550; 82553; 82607; 82728; 82746; 82805; 82948; 83540; 83735; 83880; 84439; 84443; 84466; 84484; 85025; 85610; 85730; 86850; 86900; 86920; 87040; 87086; 87186; 93005; 93306; 94640; 99285; G0378; J0456; J0696; J1650; J1940; J7030; J7050; P9016